=== PATIENT | female | born 1940 | race Caucasian/White ===

== ENCOUNTER 2016-06-05 17:52 | Inpatient (IN) | payer MEDICARE ==
[~2016-06-05] VITALS: Ht 157.5 cm; Wt 36.7 kg
[~2016-06-05 17:52] MED LIST: AMLO5TAB96 PO; DONNTAB12 PO; LORT5TAB PO; MEVA40TA6 PO; NAPR-697 PO; OMEP20CA5 PO; SUCR1TAB6 PO; ZYRT10TA12 PO
[2016-06-05 18:51] VITALS: BP 123/71; PULSE 104; RESP 22
[2016-06-05 20:30] VITALS: O2SAT 94
[2016-06-05 20:37] VITALS: BP 122/70; PULSE 140; RESP 40; O2SAT 96
[2016-06-05] MEDS ORDERED: RESP: ALBUTEROL 2.5 MG/IPRATROPIUM 0.5 MG NEB (SCH) NEB ONE (20:45)
[2016-06-05] MEDS ORDERED: SODIUM CHLORIDE 0.9% FLUSH 5 ML FLUSH IVF PRN (20:45)
--- NOTE | 2016-06-05 20:48 | PD ---
HPI Chief Complaint: Cold / Flu Symptoms Time Seen by Provider: 20:45 Travel History International Travel<30 days: No Contact w/Intl Traveler<30days: No Traveled to known affect area: No History of Present Illness HPI 76-year-old female presents to the emergency department by EMS transport from home for complaint of progressively worsening shortness of breath over the past 3 weeks. Patient has been seen by her primary care physician for upper respiratory infection. Patient states this episode is quite severe but not worst ever. Patient denies any yellow-green phlegm production resting brown sputum production or hemoptysis. Patient denies fever or chills. Patient denies chest pain. Patient has not noticed any swelling of the lower extremities or orthopnea or PND. Patient states that today her shortness of breath became markedly worse. Patient hasn't been seen here for respiratory- related issues. Patient does report she has very bad COPD. Patient denies home oxygen use. Pain is 0/10 in intensity. Patient denies chest pain referred neck jaw back shoulder arm or abdominal pain. PFSH Past Medical History Narrative Medical Breast cancer right mastectomy COPD hepatitis hypertension right mastectomy thoracotomy partial lobectomy hysterectomy splenectomy positive tobacco use positive alcohol use nursing notes reviewed Cancer: Yes (BREAST) Diabetes: No Diminished Hearing: No Glaucoma: No Hepatitis: Yes Hiatal Hernia: No Hypertension: Yes Musculoskeletal: Yes (; OSTEOPOROSIS; SCOLIOSIS.) Respiratory: Yes (COPD/LEFT LOBECTOMY) Immunizations Current: No Thyroid Disease: No Past Surgical History Abdominal Surgery: Yes (APPY, SPLEENECTOMY) Appendectomy: Yes Gynecologic Surgery: Yes (HYSTERECTOMY) Hysterectomy: Yes Oral Surgery: Yes (TONSILLECTOMY) Pacemaker: No Thoracic Surgery: Yes (LUMPECTOMY RT BREAST; MASTECTOMY RT BREAST) Tonsillectomy: Yes Other Surgery: Yes Social History Alcohol Use: Yes (3 BEER DAILY) Tobacco Use: Yes (1/2 PK/DAY) Substance Use: No Allergies-Medications (Allergen,Severity, Reaction): Coded Allergies: Morphine (Verified Allergy, Severe, THRASHING, 06/05/16) Lisinopril (Verified Allergy, Intermediate, VOMITING, 06/05/16) Reported Meds & Prescriptions Reported Meds & Active Scripts Active Reported Fentanyl Patch 72 HR (Fentanyl) 50 Mcg/Hr Patch 50 Mcg T-DERMAL Q72H Remove old patch when new one placed. Omeprazole 20 Mg Tab 20 Mg PO DAILY Lovastatin 40 Mg Tab 40 Mg PO DAILY Anoro Ellipta Inh (Umeclidinium/Vilanterol) 62.5-25 Mcg/Act Aero 1 Puff INH DAILY Zyrtec Allergy (Cetirizine HCl) 10 Mg Cap 10 Mg PO DAILY Lisinopril 10 Mg Tab 10 Mg PO DAILY Review of Systems Except as stated in HPI: all other systems reviewed are Neg General / Constitutional: No: Fever HENT: No: Congestion Cardiovascular: Positive: Tachycardia, No: Chest Pain or Discomfort Respiratory: Positive: Cough, Shortness of Breath, Wheezing, No: Pleuritic Pain Gastrointestinal: No: Nausea, Vomiting Genitourinary: No: Hematuria, Flank Pain Musculoskeletal: No: Arthralgias, Edema Skin: No Rash Neurologic: No: Weakness, Dizziness Psychiatric: Positive: Anxiety Hematologic/Lymphatic: No: Lymph Node Enlargement Physical Exam Narrative GENERAL: Thin ill appearing female in moderate to severe respiratory distress with tachypnea; O2 saturation on 2 L/m nasal cannula 97% SKIN: Warm and dry. HEAD: Atraumatic. Normocephalic. EYES: Pupils equal and round. No scleral icterus. No injection or drainage. ENT: No nasal bleeding or discharge. Mucous membranes pink and moist. NECK: Trachea midline. No JVD. CARDIOVASCULAR: Increased Regular rate and rhythm. RESPIRATORY: No accessory muscle use. Diminished breath sounds with expiratory wheeze and right greater than left basilar rales auscultation. Breath sounds equal bilaterally. GASTROINTESTINAL: Abdomen soft, non-tender, nondistended. Hepatic and splenic margins not palpable. MUSCULOSKELETAL: Extremities without clubbing, cyanosis, or edema. No obvious deformities. NEUROLOGICAL: Awake and alert. No obvious cranial nerve deficits. Motor grossly within normal limits. Five out of 5 muscle strength in the arms and legs. Normal speech. PSYCHIATRIC: Appropriate mood and affect; insight and judgment normal. Data Data Last Documented VS Vital Signs Date Time Temp Pulse Resp B/P Pulse Ox O2 Delivery O2 Flow Rate FiO2 06/06/16 01:00 108/64 06/05/16 23:51 103 22 96 Nasal Cannula 2 Orders Complete Blood Count With Diff (06/05/16 20:45) Comprehensive Metabolic Panel (06/05/16 20:45) B-Type Natriuretic Peptide (06/05/16 20:45) Act Partial Throm Time (Ptt) (06/05/16 20:45) Prothrombin Time / Inr (Pt) (06/05/16 20:45) Magnesium (Mg) (06/05/16 20:45) Ckmb (Isoenzyme) Profile (06/05/16 20:45) Troponin I (06/05/16 20:45) Arterial Blood Gas (Abg) (06/05/16 20:45) Blood Culture (06/05/16 20:45) Iv Access Insert/Monitor (06/05/16 20:45) Electrocardiogram (06/05/16 20:45) Ecg Monitoring (06/05/16 20:45) Oximetry (06/05/16 20:45) Oxygen Administration (06/05/16 20:45) Chest, Single Ap (06/05/16 20:45) Sodium Chloride 0.9% Flush (Ns Flush) (06/05/16 20:45) Albuterol-Ipratropium Neb (Duoneb Neb) (06/05/16 20:45) Lactic Acid (06/05/16 20:48) Resp Bipap / Cpap Non Invas Vt (06/05/16 ) Blood Glucose (06/05/16 21:20) CKMB (06/05/16 21:40) CKMB% (06/05/16 21:40) Lactic Acid (06/05/16 23:26) Piperacil-Tazo 3.375 Gm Premix (Zosyn 3. (06/05/16 23:30) Furosemide Inj (Lasix Inj) (06/05/16 23:30) Azithromycin Inj (Zithromax Inj) (06/05/16 23:30) D-Dimer (06/06/16 00:05) Influenzae A/B Antigen (06/06/16 00:09) Ct Pulmonary Angiogram (06/06/16 ) Iodixanol 320 Inj (Rad Ct) (Visipaque 32 (06/06/16 01:34) Admit Order (Ed Use Only) (06/06/16 ) ^ Saline Lock (06/06/16 02:22) Resp Oxygen Xavier C Titrat 1-4 L (06/06/16 ) ^ Notify Dr: Other (06/06/16 02:22) Sodium Chloride 0.9% Flush (Ns Flush) (06/06/16 09:00) Sodium Chloride 0.9% Flush (Ns Flush) (06/06/16 02:30) ^ For Further Orders (06/06/16 02:22) Labs Laboratory Tests Test 06/05/16 06/05/16 06/05/16 21:05 21:40 23:43 Blood Gas Puncture Site LT RADIAL Blood Gas Patient Temperature 98.6 Blood Gas HCO3 11 mmol/L Blood Gas Base Excess -13.8 mmol/L Blood Gas Oxygen Saturation 93 % Arterial Blood pH 7.34 Arterial Blood Partial 21 mmHg Pressure CO2 Arterial Blood Partial 108 mmHG Pressure O2 Arterial Blood Oxygen Content 16.2 Vol % Arterial Blood 1.9 % Carboxyhemoglobin Arterial Blood Methemoglobin 2.0 % Blood Gas Hemoglobin 12.3 G/DL Oxygen Delivery Device NASAL CANNULA Blood Gas Liter Flow 3 L/M White Blood Count 9.3 TH/MM3 Red Blood Count 3.26 MIL/MM3 Hemoglobin 11.9 GM/DL Hematocrit 37.3 % Mean Corpuscular Volume 114.2 FL Mean Corpuscular Hemoglobin 36.6 PG Mean Corpuscular Hemoglobin 32.1 % Concent Red Cell Distribution Width 15.9 % Platelet Count 215 TH/MM3 Mean Platelet Volume 8.9 FL Neutrophils (%) (Auto) 93.4 % Lymphocytes (%) (Auto) 5.3 % Monocytes (%) (Auto) 1.0 % Eosinophils (%) (Auto) 0.1 % Basophils (%) (Auto) 0.2 % Neutrophils # (Auto) 8.6 TH/MM3 Lymphocytes # (Auto) 0.5 TH/MM3 Monocytes # (Auto) 0.1 TH/MM3 Eosinophils # (Auto) 0.0 TH/MM3 Basophils # (Auto) 0.0 TH/MM3 CBC Comment DIFF FINAL Differential Comment Prothrombin Time 11.9 SEC Prothromb Time International 1.1 RATIO Ratio Activated Partial 24.8 SEC Thromboplast Time Sodium Level 139 MEQ/L Potassium Level 3.9 MEQ/L Chloride Level 108 MEQ/L Carbon Dioxide Level 16.1 MEQ/L Anion Gap 15 MEQ/L Blood Urea Nitrogen 14 MG/DL Creatinine 1.32 MG/DL Estimat Glomerular Filtration 39 ML/MIN Rate Random Glucose 139 MG/DL Lactic Acid Level 5.4 mmol/L 3.8 mmol/L Calcium Level 8.3 MG/DL Magnesium Level 1.5 MG/DL Total Bilirubin 0.6 MG/DL Aspartate Amino Transf 56 U/L (AST/SGOT) Alanine Aminotransferase 56 U/L (ALT/SGPT) Alkaline Phosphatase 86 U/L Total Creatine Kinase 250 U/L Creatine Kinase MB 8.3 NG/ML Creatine Kinase MB % 3.3 % Troponin I 0.16 NG/ML B-Type Natriuretic Peptide 4483 PG/ML Total Protein 6.4 GM/DL Albumin 3.7 GM/DL D-Dimer Quantitative (PE/DVT) 5.29 MG/L [facility] Medical Decision Making Medical Screen Exam Complete: Yes Emergency Medical Condition: Yes Medical Record Reviewed: Yes Interpretation(s) EKG: Sinus tachycardia rate 121 left axis deviation with age-indeterminate QS anteroseptally no acute ST elevation Last Impressions CT Angiography 06/06/16 0000 Signed Impressions: Service Date/Time: June 01:30 - CONCLUSION: 1. Negative for pulmonary embolus. 2. Fairly extensive peribronchial thickening especially at the lung bases most characteristic of a bronchitis. 3. Small bilateral pleural effusions. No pericardial effusion. 4. Moderate to severe coronary artery calcifications. 5. Moderate centrilobular emphysema. Josh Almonte MD Chest X-Ray 06/05/[id number] Signed Impressions: Service Date/Time: Sunday, June 05, 2016 21:31 - CONCLUSION: Advanced chronic obstructive pulmonary disease Mild generalized interstitial vascular prominence which may represent early congestion. Minimal bilateral effusions. Gilles Jmi MD CBC & BMP Diagram 06/05/16 21:40 Lactic acid elevated at 5.4; repeat lactic acid 3.8 Acute renal insufficiency with creatinine 1.32 and metabolic acidosis bicarbonate 16 CK total 250 with normal MB percent troponin I elevated at 0.16 BMP elevated at 4480 Differential Diagnosis Exacerbation COPD, pneumonia, CHF, respiratory failure, ACS Narrative Course Patient placed on quality assurance monitor chassis IV access obtained specimens collected and sent for resulting patient administered DuoNeb malikraosman patient artery received albuterol 3 doses and written the hospital as well as 125 mg of Solu-Medrol prior to arrival to the emergency department Patient with ongoing supplemental oxygen 2-3 L/m nasal cannula with good O2 saturations patient clinically improved after DuoNeb updrafts Patient identified to have markedly elevated Actiq acid; blood cultures obtained IV antibiotics administered Lasix 20 mg IV administered repeat lactic acid 3.8 elevated but not as marked as before Patient's case discussed in detail with feather trimmer; in view of ongoing tachycardia d-dimer obtained which was very elevated at 5.[address] pulmonary angiogram obtained No PE by angiogram however significant peribronchial thickening consistent with bronchitis also changes consistent with emphysema again no PE but moderate coronary calcifications by imaging study. Patient continues show improvement case again discussed with feather trimmer will see in consultation aware patient will be admitted by medicine service to ICU and will be consult as necessary; case discussed in detail with on-call [facility] physician Dr. De La O will admit patient to Dr. Lopez ICU and consult feather trimmer as needed Critical Care Narrative Aggregate critical care time was 40 minutes. Time to perform other separately billable procedures was not included in the critical care time. My time did not include minutes spent treating any other patients simultaneously or on activities that did not directly contribute to the patient's treatment. The services I provided to this patient were to treat and/or prevent clinically significant deterioration that could result in: Respiratory failure respiratory arrest I provided critical care services requiring my management, as noted below: Chart data review, documentation time, medication orders and management, vital sign assessments/reviewing monitor data, ordering and reviewing lab tests, ordering and interpreting/reviewing x-rays and diagnostic studies, care of the patient and discussion of the patient with the admitting physicians. Physician Communication Physician Communication discussed with Dr Bermeo; discussed with Dr Webster --admit to ICU to Dr Lopez Diagnosis Primary Impression: COPD exacerbation Additional Impression: CHF (congestive heart failure) Admitting Information Admitting Physician Requests: Admit Zeny Torres MD Jun 05, 2016 20:48
[2016-06-05] MEDS ORDERED: ZYRT10CA PO (20:54)
[2016-06-05] MEDS ORDERED: LOVA40TA PO (20:54)
[2016-06-05] MEDS ORDERED: LISI10TA3 PO (20:54)
[2016-06-05] MEDS ORDERED: FENT50DI T-DERMAL (20:54)
[2016-06-05] MEDS ORDERED: UMEC1AER INH (20:54)
[2016-06-05] MEDS ORDERED: OMEP20TA PO (20:54)
[2016-06-05 21:09] LABS: BLOOD GAS BASE EXCESS -13.8 mmol/L (-2-2); BLOOD GAS CARBOXYHEMOGLOBIN 1.9 % (0-4); BLOOD GAS HCO3 11 mmol/L (22-26); BLOOD GAS O2 HGB SATURATION 93 % (90-100); BLOOD GAS OXYGEN CONTENT 16.2 Vol % (12.0-20.0); BLOOD GAS PCO2 21 mmHg (38-42); BLOOD GAS PO2 108 mmHG (61-120); BLOOD GAS TOTAL HGB 12.3 G/DL (12.0-16.0); TEMP CORR TO 98.6
[2016-06-05 21:13] LABS: CRITICAL VALUE YES; DRAW SITE LT RADIAL; LITER FLOW 3 L/M; NUMBER OF ARTERIAL PUNCTURES 1; OXYGEN DEVICE NASAL CANNULA; STAT YES; ULNAR PULSE PRESENT
--- NOTE | 2016-06-05 22:23 | RADRPT ---
EXAM DATE/TIME: 06/05/2016 21:31 [facility] COMPARISON: No previous studies available for comparison. INDICATIONS : Shortness of breath. MEDICAL HISTORY : Emphysema. SURGICAL HISTORY : None. ENCOUNTER: Initial ACUITY: 3 days PAIN SCORE: 0/10 LOCATION: chest FINDINGS: The lungs are markedly hyperinflated. There is generalized interstitial vascular prominence. Minimal blunting is seen and the costophrenic angles. Heart is at the upper limits of normal in size. CONCLUSION: Advanced chronic obstructive pulmonary disease Mild generalized interstitial vascular prominence which may represent early congestion. Minimal bilateral effusions. Gilles Jim MD on June 05, 2016 at 22:21 Board Certified Radiologist. This report was verified electronically.
[2016-06-05 22:28] VITALS: BP 113/71; PULSE 99; RESP 22; O2SAT 97
[2016-06-05 22:30] LABS: AUTOMATED NEUTROPHIL # 8.6 TH/MM3 (1.8-7.7); BASOPHIL % 0.2 % (0.0-2.0); EOSINOPHIL % 0.1 % (0.0-4.0); HEMATOCRIT 37.3 % (35.0-46.0); HEMO FLAGS DIFF FINAL; LYMPH % 5.3 % (9.0-44.0); LYMPHOCYTE # 0.5 TH/MM3 (1.0-4.8); MEAN CELL VOLUME 114.2 FL (80.0-100.0); MEAN CORPUSCULAR HEMOGLOBIN 36.6 PG (27.0-34.0); MEAN CORPUSCULAR HGB CONC 32.1 % (32.0-36.0); NEUT % 93.4 % (16.0-70.0); PLATELET COUNT 215 TH/MM3 (150-450); RED BLOOD COUNT 3.26 MIL/MM3 (4.00-5.30); RED CELL DISTRIBUTION WIDTH 15.9 % (11.6-17.2); WHITE BLOOD COUNT 9.3 TH/MM3 (4.0-11.0)
[2016-06-05 22:40] LABS: APTT (PATIENT) 24.8 SEC (24.3-30.1); INTERNATIONAL NORMALIZED RATIO 1.1 RATIO; PROTHROMBIN TIME - PATIENT 11.9 SEC (9.8-11.6)
[2016-06-05 22:54] LABS: ANION GAP 15 MEQ/L (5-15); AST (GOT) 56 U/L (15-37); BICARBONATE 16.1 MEQ/L (21.0-32.0); BLOOD UREA NITROGEN 14 MG/DL (7-18); CHLORIDE 108 MEQ/L (98-107); GLOMERULAR FILTRATION RATE 39 ML/MIN (>89); MAGNESIUM 1.5 MG/DL (1.5-2.5); POTASSIUM 3.9 MEQ/L (3.5-5.1); SODIUM (NA) 139 MEQ/L (136-145)
[2016-06-05 23:00] LABS: ALKALINE PHOSPHATASE 86 U/L (45-117); ALT (GPT) 56 U/L (10-53); CREATINE KINASE 250 U/L (26-192); TOTAL BILIRUBIN ADULT 0.6 MG/DL (0.2-1.0)
[2016-06-05 23:12] LABS: CKMB 8.3 NG/ML (0.5-3.6)
[2016-06-05] MEDS ORDERED: FUROSEMIDE 20 MG/2 ML VIAL IV PUSH ONE (23:30)
[2016-06-05] MEDS ORDERED: PIPERACIL-TAZO 3.375 GM PREMIX 50 ML IV ONE (23:30)
[2016-06-05] MEDS ORDERED: AZITHROMYCIN INJ 500 MG in SODIUM CHLOR 0.9% 250 ML INJ 250 ML IV ONE (23:30)
[2016-06-05 23:51] VITALS: BP 137/86; PULSE 103; RESP 22; O2SAT 96
[2016-06-06] VITALS (12 sets, daily range): BP systolic 88–134; BP diastolic 60–83; PULSE 93–120; RESP 15–20; TEMP 97.8–98; O2SAT 92–100
[2016-06-06] MEDS ORDERED: IODIXANOL 320 MG/ML 10 ML VIAL (for Rad CT) IV ONE (01:34)
--- NOTE | 2016-06-06 01:49 | RADRPT ---
EXAM DATE/TIME: 06/06/2016 01:30 [facility] COMPARISON: No previous studies available for comparison. INDICATIONS : Cough, congestion, short of breath, and tachycardic IV CONTRAST: 50 cc Visipaque (iodixanol) IV RADIATION DOSE: 26.95 CTDIvol (mGy) MEDICAL HISTORY : Chronic obstructive pulmonary disease. Breast cancer. SURGICAL HISTORY : Hysterectomy. Tonsillectomy.Splenectomy.Appendectomy. Left lobectomy. Right mastectomy. ENCOUNTER: Initial ACUITY: 4 - 6 days PAIN SCALE: 0/10 LOCATION: Bilateral chest TECHNIQUE: Volumetric scanning of the chest was performed using a pulmonary embolism protocol MIP images were re constructed. Using automated exposure control and adjustment of the mA and/or kV according to patien t size, radiation dose was kept as low as reasonably achievable to obtain optimal diagnostic quality images. FINDINGS: No filling defects are seen in the pulmonary arteries to suggest pulmonary embolus. There is moderate underlying centrilobular emphysema. Small bilateral pleural effusions are present. There is peribronchial thickening bilaterally especially at the lung bases. No focal dense consolidat ion. No significant adenopathy. Moderate to severe coronary calcifications. Levoscoliosis. CONCLUSION: 1. Negative for pulmonary embolus. 2. Fairly extensive peribronchial thickening especially at the lung bases most characteristic of a br onchitis. 3. Small bilateral pleural effusions. No pericardial effusion. 4. Moderate to severe coronary artery calcifications. 5. Moderate centrilobular emphysema. Josh Almonte MD on June 06, 2016 at 1:42 Board Certified Radiologist. This report was verified electronically.
[2016-06-06] MEDS ORDERED: SODIUM CHLORIDE 0.9% FLUSH 5 ML FLUSH FLUSH PRN (02:30)
[2016-06-06] MEDS ORDERED: NALOXONE HCL 0.4 MG/ML AMP IV PRN (02:30)
[2016-06-06] MEDS ORDERED: RESP: ALBUTEROL 2.5 MG/IPRATROPIUM 0.5 MG NEB (SCH) NEB ONE (02:30)
[2016-06-06] MEDS ORDERED: ACETAMINOPHEN 325 MG TAB PO PRN (02:30)
[2016-06-06] MEDS ORDERED: SODIUM CHLORIDE 0.9% FLUSH 5 ML FLUSH IVF PRN (02:30)
[2016-06-06] MEDS: fentaNYL 50 MCG/HR PATCH T-DERMAL SCH (03:08)
[2016-06-06 04:34] LABS: AUTOMATED NEUTROPHIL # 6.3 TH/MM3 (1.8-7.7); BASOPHIL % 0.1 % (0.0-2.0); HEMATOCRIT 31.6 % (35.0-46.0); HEMO FLAGS DIFF FINAL; LYMPH % 9.8 % (9.0-44.0); LYMPHOCYTE # 0.7 TH/MM3 (1.0-4.8); MEAN CELL VOLUME 105.2 FL (80.0-100.0); MEAN CORPUSCULAR HGB CONC 34.2 % (32.0-36.0); MONO % 1.4 % (0.0-8.0); NEUT % 88.7 % (16.0-70.0); PLATELET COUNT 222 TH/MM3 (150-450); RED BLOOD COUNT 3.01 MIL/MM3 (4.00-5.30); RED CELL DISTRIBUTION WIDTH 14.3 % (11.6-17.2); WHITE BLOOD COUNT 7.2 TH/MM3 (4.0-11.0)
[2016-06-06 05:04] LABS: ALKALINE PHOSPHATASE 72 U/L (45-117); ALT (GPT) 51 U/L (10-53); ANION GAP 15 MEQ/L (5-15); AST (GOT) 45 U/L (15-37); BICARBONATE 18.8 MEQ/L (21.0-32.0); BLOOD UREA NITROGEN 17 MG/DL (7-18); CHLORIDE 105 MEQ/L (98-107); GLOMERULAR FILTRATION RATE 38 ML/MIN (>89); POTASSIUM 4.2 MEQ/L (3.5-5.1); SODIUM (NA) 139 MEQ/L (136-145); TOTAL BILIRUBIN ADULT 0.5 MG/DL (0.2-1.0)
[2016-06-06] MEDS ORDERED: FUROSEMIDE 20 MG/2 ML VIAL IV PUSH ONE (06:00)
[2016-06-06] MEDS: PIPERACIL-TAZO 3.375 GM PREMIX 50 ML IV SCH ×3 (07:55→23:35)
[2016-06-06] MEDS: RESP: ALBUTEROL 2.5 MG/IPRATROPIUM 0.5 MG NEB (SCH) NEB ×3 (08:04→20:32)
[2016-06-06] MEDS: UMECLIDINIUM 62.5 MCG/VILANTEROL 25 MCG INHALER INH SCH (08:29)
[2016-06-06] MEDS: CETIRIZINE HCL 10 MG TAB PO SCH (08:29)
[2016-06-06] MEDS: PANTOPRAZOLE SOD 20 MG DELAYED RELEASE TAB PO SCH (08:30)
[2016-06-06] MEDS: SODIUM CHLORIDE 0.9% FLUSH 5 ML FLUSH FLUSH SCH ×2 (08:30→20:21)
[2016-06-06] MEDS: PRAVASTATIN SOD 40 MG TAB PO SCH (08:30)
[2016-06-06] MEDS ORDERED: LISINOPRIL 10 MG TAB PO SCH (09:00)
[2016-06-06] MEDS ORDERED: SODIUM CHLORIDE 0.9% FLUSH 5 ML FLUSH IVF SCH (09:00)
--- NOTE | 2016-06-06 09:04 | HHI.HP ---
HPI Service [facility] Hospitalists Primary Care Physician Colleen Morales MD Admission Diagnosis exacerbation COPD; CHF; elevated troponin I Chief Complaint: SOB Travel History International Travel<30 Days: No Contact w/Intl Traveler <30 Da: No Traveled to Known Affected Are: No History of Present Illness Mrs. Casas is a pleasant 76 y/o WF with COPD, HTN, hyperlipidemia, tobacco use and regular alcohol use. She presented to the ED at [facility] via EMS transport from home on 06/05/16 for progressively worsening shortness of breath over the past 3 weeks which acutely worsened yesterday. Patient has been seen by her primary care physician for upper respiratory infection and COPD exacerbation around 3 months ago and states that she was on antibiotics and steroids. She states that the steroids helped her significantly but then she developed thrush and stopped taking the steroids and antibiotics. Patient states that her symptoms returned after stopping medications and have been progressively worsening. She denies any fevers but states that she has felt chilled. Pt has had a productive cough with yellow sputum. Patient denies any chest pain, LE edema, orthopnea or PND. Patient denies home oxygen use. Labs at admission noted WNC count to be WNL. Her Lactic acid was elevated at 5.4. She was given Zosyn and Azithromycin IV in the ER and these were continued upon admission. She was also noted to have elevated BNP of 4483 but CXR noted advanced chronic obstructive pulmonary disease and some mild generalized interstitial vascular prominence which may represent early congestion and minimal bilateral effusions. Pt was given Lasix 20mg IV in the ER. Pts D-dimer was elevated and a CTA was performed which was negative for pulmonary embolus, fairly extensive peribronchial thickening especially at the lung bases most characteristic of a bronchitis, small bilateral pleural effusions, no pericardial effusion, moderate to severe coronary artery calcifications, and moderate centrilobular emphysema. Review of Systems Constitutional: COMPLAINS OF: Chills, DENIES: Fever Eyes: DENIES: Vision loss Ears, nose, mouth, throat: DENIES: Hearing loss Respiratory: COMPLAINS OF: Cough, Wheezing, Sputum production, Shortness of breath Cardiovascular: DENIES: Chest pain, Palpitations, Dyspnea on Exertion, Lower Extremity Edema Gastrointestinal: DENIES: Abdominal pain, Diarrhea, Nausea, Vomiting Genitourinary: DENIES: Urinary frequency Musculoskeletal: DENIES: Joint pain Integumentary: DENIES: Rash Neurologic: DENIES: Headache Psychiatric: DENIES: Confusion, Depression Past Family Social History Past Medical History COPD/chronic bronchitis HTN Hyperlipidemia Depression/Anxiety Chronic low back pain Carotid artery stenosis Nicotine dependence Osteoarthritis Osteopenia PVD Hx of breast cancer s/p lumpectomy Hx of uterine cancer s/p JOSH Past Surgical History Appendectomy Right breast lumpectomy in 1996 Splenectomy in 1963 JOSH with BSO for uterine cancer in 1972 Excision of ganglion cyst to left wrist in 1979 Reported Medications -Fentanyl Patch 72 HR 50 Mcg T-DERMAL Q72H -Lovastatin 40 Mg PO DAILY -Anoro Ellipta Inh 62.5-25 Mcg/Act Aero 1 Puff INH DAILY -Zyrtec Allergy 10 Mg PO DAILY -Megace 40Mg PO BID -Omeprazole 20 Mg PO DAILY ?Lisinopril 10 Mg Tab 10 Mg PO DAILY ?[id number] PO DAILY Allergies: Coded Allergies: Morphine (Verified Allergy, Severe, THRASHING, 06/05/16) Lisinopril (Verified Allergy, Intermediate, VOMITING, 06/05/16) Family History Mother with hx of breast cancer and gastric cancer, at age 64 Father with hx of prostate cancer, at age 84 Social History (+)Alcohol use, drinks 3-4 beers per night (+)Tobacco use Denies any hx of illicit drug use Pt is currently Physical Exam Vital Signs Vital Signs Date Time Temp Pulse Resp B/P Pulse Ox O2 Delivery O2 Flow Rate FiO2 06/06/16 07:56 97.8 104 20 122/77 98 Nasal Cannula 2 06/06/16 06:01 17 06/06/16 05:00 100 15 115/83 97 Nasal Cannula 2 06/06/16 03:00 98 19 109/77 97 Nasal Cannula 2 06/06/16 01:00 108/64 06/05/16 23:51 103 22 137/86 96 Nasal Cannula 2 06/05/16 22:28 99 22 113/71 97 Room Air 06/05/16 20:37 140 40 122/70 96 Nasal Cannula 3 06/05/16 20:37 40 96 Nasal Cannula 3 06/05/16 20:30 94 Room Air 06/05/16 20:30 96 Nasal Cannula 3 06/05/16 18:51 104 22 123/71 Physical Exam GENERAL: Thin elderly patient, in no apparent distress. HEENT: Atraumatic. Normocephalic. No temporal or scalp tenderness. No scleral icterus. Airway patent. NECK: Trachea midline, supple, nontender. CARDIO: Regular. RESP: Decreased air movement bilaterally, rhonchi in the bases. ABD: +BS, soft, non-tender, nondistended. EXT: Extremities without clubbing, cyanosis, or edema. NEURO: Awake and alert. Motor and sensory grossly within normal limits. Normal speech. Laboratory Laboratory Tests Test 06/05/16 06/05/16 06/05/16 06/06/16 21:05 21:40 23:43 04:07 Blood Gas Puncture Site LT RADIAL Blood Gas Patient Temperature 98.6 Blood Gas HCO3 11 Blood Gas Base Excess -13.8 Blood Gas Oxygen Saturation 93 Arterial Blood pH 7.34 Arterial Blood Partial 21 Pressure CO2 Arterial Blood Partial 108 Pressure O2 Arterial Blood Oxygen Content 16.2 Arterial Blood 1.9 Carboxyhemoglobin Arterial Blood Methemoglobin 2.0 Blood Gas Hemoglobin 12.3 Oxygen Delivery Device NASAL CANNULA Blood Gas Liter Flow 3 White Blood Count 9.3 7.2 Red Blood Count 3.26 3.01 Hemoglobin 11.9 10.8 Hematocrit 37.3 31.6 Mean Corpuscular Volume 114.2 105.2 Mean Corpuscular Hemoglobin 36.6 36.0 Mean Corpuscular Hemoglobin 32.1 34.2 Concent Red Cell Distribution Width 15.9 14.3 Platelet Count 215 222 Mean Platelet Volume 8.9 9.3 Neutrophils (%) (Auto) 93.4 88.7 Lymphocytes (%) (Auto) 5.3 9.8 Monocytes (%) (Auto) 1.0 1.4 Eosinophils (%) (Auto) 0.1 0.0 Basophils (%) (Auto) 0.2 0.1 Neutrophils # (Auto) 8.6 6.3 Lymphocytes # (Auto) 0.5 0.7 Monocytes # (Auto) 0.1 0.1 Eosinophils # (Auto) 0.0 0.0 Basophils # (Auto) 0.0 0.0 CBC Comment DIFF FINAL DIFF FINAL Differential Comment Prothrombin Time 11.9 Prothromb Time International 1.1 Ratio Activated Partial 24.8 Thromboplast Time Sodium Level 139 139 Potassium Level 3.9 4.2 Chloride Level 108 105 Carbon Dioxide Level 16.1 18.8 Anion Gap 15 15 Blood Urea Nitrogen 14 17 Creatinine 1.32 1.37 Estimat Glomerular Filtration 39 38 Rate Random Glucose 139 210 Lactic Acid Level 5.4 3.8 Calcium Level 8.3 8.2 Magnesium Level 1.5 Total Bilirubin 0.6 0.5 Aspartate Amino Transf 56 45 (AST/SGOT) Alanine Aminotransferase 56 51 (ALT/SGPT) Alkaline Phosphatase 86 72 Total Creatine Kinase 250 Creatine Kinase MB 8.3 Creatine Kinase MB % 3.3 Troponin I 0.16 0.14 B-Type Natriuretic Peptide 4483 4805 Total Protein 6.4 6.0 Albumin 3.7 3.3 D-Dimer Quantitative (PE/DVT) 5.29 Date/Time Procedure Status Source Growth 06/06/16 00:23 Influenza Types A,B Antigen (NELDA) - Final Complete Nasal Washing NEGATIVE FOR FLU A AND B ANTIGEN.... 06/05/16 21:50 Aerobic Blood Culture Received Blood Peripheral Pending 06/05/16 21:50 Anaerobic Blood Culture Received Blood Peripheral Pending Result Diagram: 06/06/16 0407 06/06/16 [address] Angiography 06/06/16 0000 Signed Impressions: Service Date/Time: June 01:30 - CONCLUSION: 1. Negative for pulmonary embolus. 2. Fairly extensive peribronchial thickening especially at the lung bases most characteristic of a bronchitis. 3. Small bilateral pleural effusions. No pericardial effusion. 4. Moderate to severe coronary artery calcifications. 5. Moderate centrilobular emphysema. Josh Almonte MD Chest X-Ray 06/05/162044 Signed Impressions: Service Date/Time: Sunday, June 05, 2016 21:31 - CONCLUSION: Advanced chronic obstructive pulmonary disease Mild generalized interstitial vascular prominence which may represent early congestion. Minimal bilateral effusions. Gilles Jim MD Septic Shock Reassessment Heart: Regular rate and rhythm Lungs: Course Skin: Warm Peripheral Pulses: Bounding Right Radial Bounding Left Radial Bounding Right Popliteal Bounding Left Popliteal Bounding Right Dorsalis Pedis Bounding Left Dorsalis Pedis Bounding Right Posterior Tibial Bounding Left Posterior Tibial Capillary Refill: <2 seconds Assessment and Plan Problem List: (1) COPD exacerbation Status: Acute Plan: - Pt admitted with worsening SOB, productive cough, and congestion that has progressively worsened over the last 3 weeks. - Labs at admission noted WNC count to be WNL. Her Lactic acid was elevated at 5.4. - She was given Zosyn and Azithromycin IV in the ER and these were continued upon admission. - Pt had an elevated BNP of 4483 at admission. - CXR (06/05) -->Advanced chronic obstructive pulmonary disease Mild generalized interstitial vascular prominence which may represent early congestion. Minimal bilateral effusions. - Pt was given Lasix 20mg IV x 2 in the ER. - Pts D-dimer was elevated. CTA lungs (06/05) --> Negative for pulmonary embolus. Fairly extensive peribronchial thickening especially at the lung bases most characteristic of a bronchitis. Small bilateral pleural effusions. No pericardial effusion. Moderate to severe coronary artery calcifications. Moderate centrilobular emphysema. - Start Solu-Medrol 125mg x one dose then continued 60mg Q6H - Cont. Antibiotics - Duonebs Q6H WA and Q2H PRN - Supplemental O2 as needed - IS - Acapella - DVT prophylaxis (2) Bronchitis Status: Acute Plan: - See above. (3) HTN (hypertension) Status: Chronic Plan: - Home meds resumed - Monitor (4) Elevated troponin Status: Acute Plan: - Flat pattern, 0.12-->0.14-->0.12 - No complaints of chest pain (5) Hyperlipidemia Status: Chronic (6) Tobacco use Status: Chronic Plan: - Counselled on tobacco cessation - Nicotine patch (7) Alcohol use Status: Chronic Plan: - Alcohol withdrawal precautions - Ativan PRN (8) Chronic back pain Status: Chronic Plan: - Cont. home meds Assessment and Plan Patient examined. Assessment and plan formulated with Saritha Marie PA-C. I agree with the above. Physician Certification 2 Midnight Certification Type: Admission for Inpatient Services Order for Inpatient Services The services are ordered in accordance with Medicare regulations or non- Medicare payer requirements, as applicable. In the case of services not specified as inpatient-only, they are appropriately provided as inpatient services in accordance with the 2-midnight benchmark. Estimated LOS (days): 3 3 days is the estimated time the patient will need to remain in the hospital, assuming treatment plan goals are met and no additional complications. Post-Hospital Plan: Not yet determined Saritha Marie Jun 06, 2016 09:04 Richard Lopez DO Jun 09, 2016 16:23
[2016-06-06] MEDS ORDERED: PANTOPRAZOLE SODIUM 40 MG VIAL IV PUSH SCH (09:45)
[2016-06-06] MEDS ORDERED: LORazepam 2 MG/ML VIAL IV PUSH PRN (10:15)
[2016-06-06] MEDS ORDERED: RESP: ALBUTEROL 2.5 MG/IPRATROPIUM 0.5 MG NEB (PRN) NEB (10:15)
[2016-06-06] MEDS ORDERED: methylPREDNISolone SOD SUCC 125 MG/2 ML VIAL IV PUSH ONE (10:15)
[2016-06-06] MEDS: MEGESTROL ACETATE 40 MG TAB PO SCH ×2 (10:21→20:23)
[2016-06-06] MEDS ORDERED: NICOTINE 14 MG/24 HR PATCH TD ONE (11:00)
[2016-06-06] MEDS: methylPREDNISolone SOD SUCC 125 MG/2 ML VIAL IV PUSH SCH ×2 (15:58→23:34)
--- NOTE | 2016-06-06 19:01 | EC ---
Study Study Date:06/06/2016 STUDY CONCLUSIONS SUMMARY - Left ventricle: The cavity size was normal. Wall thickness was normal. Systolic function was moderately reduced. The estimated ejection fraction was in the range of 35% to 40%. Severe hypokinesis of the anteroseptal myocardium. - Mitral valve: Mild to moderate regurgitation. - Tricuspid valve: Moderate regurgitation. - Pulmonary arteries: PA peak pressure: 77mm Hg (S). If LV function is below 40, please consider prescribing an ACEI or ARB or document rationale for non-use. PROCEDURE DATA STUDY STATUS: Elective. Procedure: Transthoracic echocardiography. Image quality was good. Scanning was performed from the parasternal, apical, and subcostal acoustic windows. Study completion: The patient tolerated the procedure well. Transthoracic echocardiography. M-mode, complete 2D, complete spectral Doppler, and color Doppler. Patient status: Inpatient. CARDIAC ANATOMY LEFT VENTRICLE: The cavity size was normal. Wall thickness was normal. Systolic function was moderately reduced. The estimated ejection fraction was in the range of 35% to 40%. Regional wall motion abnormalities: Severe hypokinesis of the anteroseptal myocardium. AORTIC VALVE: Trileaflet; normal thickness leaflets. Doppler: Transvalvular velocity was within the normal range. There was no stenosis. No regurgitation. AORTA: Aortic root: The aortic root was normal in size. MITRAL VALVE: Structurally normal valve. Doppler: Transvalvular velocity was within the normal range. There was no evidence for stenosis. Mild to moderate regurgitation. Valve area by pressure half-time: 3.61cm^2. Mean gradient: 2mm Hg (D). Peak gradient: 5mm Hg (D). LEFT ATRIUM: The atrium was normal in size. RIGHT VENTRICLE: The cavity size was normal. Wall thickness was normal. PULMONIC VALVE: Doppler: Transvalvular velocity was within the normal range. There was no evidence for stenosis. No regurgitation. TRICUSPID VALVE: Structurally normal valve. Doppler: Transvalvular velocity was within the normal range. Moderate regurgitation. PULMONARY ARTERY: The main pulmonary artery was normal-sized. Systolic pressure was within the normal range. RIGHT ATRIUM: The atrium was normal in size. PERICARDIUM: There was no pericardial effusion. SYSTEMIC VEINS: Inferior vena cava: The vessel was normal in size. BASIC MEASUREMENTS ADULT Normal Left ventricle LV internal dimension, ED, chordal level, 44.3 mm 43-52 PLAX LV internal dimension, ES, chordal level, 36.6 mm 23-38 PLAX Fractional shortening, chordal level, PLAX *17 % >29 LV posterior wall thickness, ED 6.35 mm IVS/LVPW ratio, ED *1.69 <1.3 Ventricular septum Septal thickness, ED 10.7 mm Aortic valve Leaflet separation 19 mm 15-26 Left atrium Anterior-posterior dimension 30 mm Right ventricle RV internal dimension, ED, PLAX 25.3 mm 19-38 BASIC MEASUREMENTS ADULT Normal Aortic valve Leaflet separation 19 mm 15-26 Aorta Root diameter, ED 29 mm 20-37 DOPPLER MEASUREMENTS ADULT Normal Main pulmonary artery Pressure, S *77 mm Hg =30 Aortic valve VTI, S 31.7 cm Mitral valve Peak E-wave velocity 93.2 cm/s Peak A-wave velocity 70.3 cm/s Mean velocity, D 60.2 cm/s Pressure half-time 61 ms Mean gradient, D 2 mm Hg Peak gradient, D 5 mm Hg Peak E/A ratio 1.3 Valve area, pressure half-time 3.61 cm^2 Maximal regurgitant velocity 369 cm/s Tricuspid valve Regurgitant peak velocity 271 cm/s Peak RV-RA gradient, S 29 mm Hg Maximal regurgitant velocity 271 cm/s Systemic veins Estimated CVP 20 mm Hg Right ventricle RV pressure, S *77 mm Hg <30 LEGEND: Mean values are shown as u=mean value. Asterisk (*) bryant values outside specified normal range. Prepared and signed by Alberto Gilliam [id number]
[2016-06-06] MEDS ORDERED: REMOVE OLD NICODERM (NICOTINE) PATCH TD ONE (21:00)
[2016-06-06] MEDS: AZITHROMYCIN INJ 500 MG in SODIUM CHLOR 0.9% 250 ML INJ 250 ML IV SCH (23:34)
--- NOTE | 2016-06-06 23:50 | EKG ---
Date Performed: 06/05/2016 Time Performed: 21:16:19 PTAGE: 76 years EKG: SINUS TACHYCARDIA MARKED LEFT AXIS DEVIATION ANTEROSEPTAL MYOCARDIAL INFARCTION ABNORMAL EC G NO PREVIOUS TRACING DOCTOR: Magan Montiel Interpretating Date/Time 06/06/2016 23:48:36
[2016-06-07] VITALS (15 sets, daily range): BP systolic 81–118; BP diastolic 54–83; PULSE 84–166; RESP 13–25; TEMP 97.5–98; O2SAT 97–99
[2016-06-07] MEDS: methylPREDNISolone SOD SUCC 125 MG/2 ML VIAL IV PUSH SCH ×4 (04:22→21:30)
[2016-06-07] MEDS: RESP: ALBUTEROL 2.5 MG/IPRATROPIUM 0.5 MG NEB (SCH) NEB ×3 (08:24→19:39)
[2016-06-07] MEDS: SODIUM CHLORIDE 0.9% FLUSH 5 ML FLUSH FLUSH SCH ×2 (09:08→21:00)
[2016-06-07] MEDS: PIPERACIL-TAZO 3.375 GM PREMIX 50 ML IV SCH ×2 (09:08→15:42)
[2016-06-07] MEDS: NICOTINE 14 MG/24 HR PATCH TD SCH (09:10)
[2016-06-07] MEDS: CETIRIZINE HCL 10 MG TAB PO SCH (09:11)
[2016-06-07] MEDS: PANTOPRAZOLE SOD 20 MG DELAYED RELEASE TAB PO SCH (09:11)
[2016-06-07] MEDS: MEGESTROL ACETATE 40 MG TAB PO SCH ×2 (09:11→21:29)
[2016-06-07] MEDS: PRAVASTATIN SOD 40 MG TAB PO SCH (09:11)
[2016-06-07] MEDS: UMECLIDINIUM 62.5 MCG/VILANTEROL 25 MCG INHALER INH SCH (09:12)
[2016-06-07] MEDS ORDERED: DIGOXIN 0.5 MG/2 ML VIAL IV PUSH ONE ×2 (15:30→23:00)
--- NOTE | 2016-06-07 16:41 | HHI.PR ---
Subjective Remarks Pt developed A. fib RVR today with HR into the 160-180's, pt is asymptomatic Denies any chest pain or SOB Pt had one loose stool today She complains of some nausea. Objective Vitals Vital Signs Date Time Temp Pulse Resp B/P Pulse Ox O2 Delivery O2 Flow Rate FiO2 06/07/16 12:00 100 06/07/16 12:00 97.7 100 25 81/55 97 06/07/16 10:00 88 06/07/16 08:27 97 Nasal Cannula 2.00 06/07/16 08:00 97.7 88 21 118/83 97 06/07/16 08:00 92 06/07/16 06:00 92 06/07/16 04:00 87 06/07/16 04:00 98.0 87 13 101/65 98 06/07/16 02:00 91 06/07/16 00:00 102 06/07/16 00:00 97.8 102 20 103/58 99 06/06/16 22:00 100 06/06/16 20:35 98 Nasal Cannula 2.00 06/06/16 20:00 97.8 93 18 88/60 100 06/06/16 20:00 95 06/06/16 18:00 104 06/06/16 06/06/16 06/07/16 15:00 23:00 07:00 Intake Total 280 ml 631 ml 604 ml Output Total 600 ml 100 ml Balance -320 ml 631 ml 504 ml Intake Oral 280 ml 500 ml 300 ml IV Total 131 ml 304 ml Output Urine Total 600 ml 100 ml # Voids 1 1 1 # Bowel Movements 0 Result Diagram: 06/06/16 0407 06/06/16 0407 Other Results Laboratory Tests Test 06/05/16 06/05/16 06/05/16 06/06/16 21:05 21:40 23:43 04:07 Blood Gas Puncture Site LT RADIAL Blood Gas Patient Temperature 98.6 Blood Gas HCO3 11 mmol/L Blood Gas Base Excess -13.8 mmol/L Blood Gas Oxygen Saturation 93 % Arterial Blood pH 7.34 Arterial Blood Partial 21 mmHg Pressure CO2 Arterial Blood Partial 108 mmHG Pressure O2 Arterial Blood Oxygen Content 16.2 Vol % Arterial Blood 1.9 % Carboxyhemoglobin Arterial Blood Methemoglobin 2.0 % Blood Gas Hemoglobin 12.3 G/DL Oxygen Delivery Device NASAL CANNULA Blood Gas Liter Flow 3 L/M White Blood Count 9.3 TH/MM3 7.2 TH/MM3 Red Blood Count 3.26 MIL/MM3 3.01 MIL/MM3 Hemoglobin 11.9 GM/DL 10.8 GM/DL Hematocrit 37.3 % 31.6 % Mean Corpuscular Volume 114.2 FL 105.2 FL Mean Corpuscular Hemoglobin 36.6 PG 36.0 PG Mean Corpuscular Hemoglobin 32.1 % 34.2 % Concent Red Cell Distribution Width 15.9 % 14.3 % Platelet Count 215 TH/MM3 222 TH/MM3 Mean Platelet Volume 8.9 FL 9.3 FL Neutrophils (%) (Auto) 93.4 % 88.7 % Lymphocytes (%) (Auto) 5.3 % 9.8 % Monocytes (%) (Auto) 1.0 % 1.4 % Eosinophils (%) (Auto) 0.1 % 0.0 % Basophils (%) (Auto) 0.2 % 0.1 % Neutrophils # (Auto) 8.6 TH/MM3 6.3 TH/MM3 Lymphocytes # (Auto) 0.5 TH/MM3 0.7 TH/MM3 Monocytes # (Auto) 0.1 TH/MM3 0.1 TH/MM3 Eosinophils # (Auto) 0.0 TH/MM3 0.0 TH/MM3 Basophils # (Auto) 0.0 TH/MM3 0.0 TH/MM3 CBC Comment DIFF FINAL DIFF FINAL Differential Comment Prothrombin Time 11.9 SEC Prothromb Time International 1.1 RATIO Ratio Activated Partial 24.8 SEC Thromboplast Time Sodium Level 139 MEQ/L 139 MEQ/L Potassium Level 3.9 MEQ/L 4.2 MEQ/L Chloride Level 108 MEQ/L 105 MEQ/L Carbon Dioxide Level 16.1 MEQ/L 18.8 MEQ/L Anion Gap 15 MEQ/L 15 MEQ/L Blood Urea Nitrogen 14 MG/DL 17 MG/DL Creatinine 1.32 MG/DL 1.37 MG/DL Estimat Glomerular Filtration 39 ML/MIN 38 ML/MIN Rate Random Glucose 139 MG/DL 210 MG/DL Lactic Acid Level 5.4 mmol/L 3.8 mmol/L Calcium Level 8.3 MG/DL 8.2 MG/DL Magnesium Level 1.5 MG/DL Total Bilirubin 0.6 MG/DL 0.5 MG/DL Aspartate Amino Transf 56 U/L 45 U/L (AST/SGOT) Alanine Aminotransferase 56 U/L 51 U/L (ALT/SGPT) Alkaline Phosphatase 86 U/L 72 U/L Total Creatine Kinase 250 U/L Creatine Kinase MB 8.3 NG/ML Creatine Kinase MB % 3.3 % Troponin I 0.16 NG/ML 0.14 NG/ML B-Type Natriuretic Peptide 4483 PG/ML 4805 PG/ML Total Protein 6.4 GM/DL 6.0 GM/DL Albumin 3.7 GM/DL 3.3 GM/DL D-Dimer Quantitative (PE/DVT) 5.29 MG/L FEU Test 06/06/16 06/06/16 12:00 14:17 Nasal Screen MRSA (PCR) NEGATIVE Troponin I 0.12 NG/ML Imaging Last Impressions CT Angiography 06/06/16 0000 Signed Impressions: Service Date/Time: June 01:30 - CONCLUSION: 1. Negative for pulmonary embolus. 2. Fairly extensive peribronchial thickening especially at the lung bases most characteristic of a bronchitis. 3. Small bilateral pleural effusions. No pericardial effusion. 4. Moderate to severe coronary artery calcifications. 5. Moderate centrilobular emphysema. Josh Almonte MD Chest X-Ray 06/05/162044 Signed Impressions: Service Date/Time: Sunday, June 05, 2016 21:31 - CONCLUSION: Advanced chronic obstructive pulmonary disease Mild generalized interstitial vascular prominence which may represent early congestion. Minimal bilateral effusions. Gilles Jim MD Objective Remarks General: NAD, AAOx3 Chest: Decreased air movement bilaterally Cardiac: Tachy, irregularly irregular Abd: +BS, soft ND/NT Ext: No edema Procedures 2D echo (06/06/16): - Estimated EF 35-40% - Severe hypokinesis of the anteroseptal myocardium - Mild to moderate mitral regurgitation - Moderate tricuspid regurgitation - PA peak pressure 77mmHg A/P Problem List: (1) Atrial fibrillation with RVR Status: Acute Plan: - Pt developed A. fib RVR with HR into the 160-180's on telemetry today - Pt denies any chest pain or palpitations - Pt given a dose of Digoxin IV today and initial improvement in her HR but again it increased back to the 150-160's - Pts BP has been low today with systolic in the 80's - Stop Lisinopril, last dose was on 3/2 - Consult Cardiology - Will give another dose of Digoxin and check level in AM - Add Amiodarone - Check TSH/Free T4 (2) COPD exacerbation Status: Acute Plan: - Pt admitted with worsening SOB, productive cough, and congestion that has progressively worsened over the last 3 weeks. - Labs at admission noted WNC count to be WNL. Her Lactic acid was elevated at 5.4. - She was given Zosyn and Azithromycin IV in the ER and these were continued upon admission. - Pt had an elevated BNP of 4483 at admission. - CXR (06/05) -->Advanced chronic obstructive pulmonary disease Mild generalized interstitial vascular prominence which may represent early congestion. Minimal bilateral effusions. - Pt was given Lasix 20mg IV x 2 in the ER. - Pts D-dimer was elevated. CTA lungs (06/05) --> Negative for pulmonary embolus. Fairly extensive peribronchial thickening especially at the lung bases most characteristic of a bronchitis. Small bilateral pleural effusions. No pericardial effusion. Moderate to severe coronary artery calcifications. Moderate centrilobular emphysema. - Cont. Solu-Medrol 60mg Q6H - Cont. Antibiotics - Duonebs Q6H WA and Q2H PRN - Supplemental O2 as needed - IS - Acapella - DVT prophylaxis (3) Bronchitis Status: Acute Plan: - See above. (4) CHF (congestive heart failure) Status: Acute Plan: - 2D echo (06/06/16): - Estimated EF 35-40% - Severe hypokinesis of the anteroseptal myocardium - Mild to moderate mitral regurgitation - Moderate tricuspid regurgitation - PA peak pressure 77mmHg - BNP was elevated over 4000 at admission - Pt was given Lasix x 2 doses in the ED. - Repeat BNP in AM (5) HTN (hypertension) Status: Chronic Plan: - Hold Lisinopril due to hypotension - Monitor (6) Elevated troponin Status: Acute Plan: - Flat pattern, 0.12-->0.14-->0.12 - No complaints of chest pain (7) Hyperlipidemia Status: Chronic (8) Tobacco use Status: Chronic Plan: - Counselled on tobacco cessation - Nicotine patch (9) Alcohol use Status: Chronic Plan: - Alcohol withdrawal precautions - Ativan PRN (10) Chronic back pain Status: Chronic Plan: - Cont. home meds Assessment and Plan Patient examined. Assessment and plan formulated with Saritha Marie PA-C. I agree with the above. Saritha Marie Jun 07, 2016 16:41 Richard Lopez DO Jun 09, 2016 16:23
[2016-06-07] MEDS: AMIODARONE INJ 450 MG in DEXTROSE 5% IN WATE(EXCEL) INJ 241 ML IV SCH ×2 (17:31)
[2016-06-07] MEDS ORDERED: ONDANSETRON HCL 4 MG/2 ML VIAL IV PRN (18:00)
[2016-06-07] MEDS ORDERED: AMIODARONE INJ 150 MG in DEXTROSE 5% IN WATER 100ML INJ 97 ML IV ONE ×2 (18:45)
[2016-06-07 20:11] LABS: FREE T4 1.19 NG/DL (0.76-1.46)
[2016-06-07] MEDS: REMOVE OLD NICODERM (NICOTINE) PATCH TD SCH (21:00)
[2016-06-07] MEDS: ENOXAPARIN SODIUM 30 MG/0.3 ML SYRINGE SQ SCH (21:28)
[2016-06-07] MEDS: DILTIAZEM HCL 30 MG TAB PO SCH (21:28)
--- NOTE | 2016-06-07 23:32 | MB ---
cc: PEDRO SIFUENTES MD, CARMEN A. M.D. SCHWARTZ, EDWARD B. DO DATE OF CONSULTATION 06/07/16 REASON FOR CONSULTATION Atrial fibrillation with rapid ventricular response HISTORY OF PRESENT ILLNESS Ms. Casas is a pleasant 76 year old female who does have a history of hypertension, hyperlipidemia, regular tobacco and alcohol use who presented with complaints of shortness of breath. She was being treated for her COPD when she had an episode of atrial fibrillation with rapid ventricular response. Cardiology was subsequently consulted for assistance with her atrial fibrillation. PAST MEDICAL HISTORY 1. Hypertension, 2. Hyperlipidemia, 3. COPD, 4. Depression/anxiety, 5. Back pain 6. Carotid artery stenosis 7. Osteoarthritis 8. Osteopenia. PAST SURGICAL HISTORY 1. Breast cancer status post lumpectomy 2. Uterine cancer status post JOSH 3. Appendectomy, 4. Splenectomy 5. Excision of a ganglion cyst. MEDICATIONS Outpatient, 1. Fentanyl 2. Lovastatin 3. Breo Ellipta 4. Zyrtec. 5. Megace 6. Omeprazole 7. Fluoxetine Of note, she told me her Lisinopril was discontinued. ALLERGIES MORPHINE LISINOPRIL PER THE COMPUTER FAMILY HISTORY Positive for cancer. SOCIAL HISTORY The patient does drink 3-4 beers a night and continues to smoke. REVIEW OF SYSTEMS Except what is mentioned in HPI all 12 systems are negative PHYSICAL EXAMINATION VITAL SIGNS: Heart rate 146, blood pressure 88/55. GENERAL: She is a thin female who is in no apparent distress. NECK: Free from JVD. LUNGS: Decreased but clear to auscultation. CARDIOVASCULAR: She has a irregularly irregular tachycardic rhythm. No rubs or gallops are appreciated. ABDOMEN: Soft. EXTREMITIES: Free from edema. CARDIOLOGY STUDIES Echocardiogram does show an EF of 35-40% with mild to moderate mitral regurgitation. LABORATORY DATA Hemoglobin of 10.8 with a creatinine of 1.37. Her troponins are 0.16/0.14/0.12 [place] 4805. IMPRESSION 1. Atrial fibrillation with rapid ventricular response - the patient is having some atrial fibrillation with the rapid ventricular rate. I am going to give her an amiodarone bolus in addition to the digoxin that was written for earlier. I would like to add Cardizem if her blood pressure does come up a little bit. The patient's CHADS vas score is six with a point for CHF/LV dysfunction, hypertension, age of 76, vascular disease and female. Her yearly event rate is 10-15% off of medications. Thus, at this point I am going to add Lovenox daily. Long-term anticoagulation will need to be evaluated with the primary team as she is mildly anemic now. 2. Cardiomyopathy - the patient's EF is 35-40%. 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 She is poor beta-blockade candidate given her severe COPD. As well, her blood pressure is too low for the lisinopril. Right now we are going to manage her conservatively. 3. COPD - This is being managed by the primary team. 4. Systolic heart failure - as above. Pedro Sifuentes M.D. FILIBERTO/ /7:00 PM /11:16 PM
[2016-06-08] VITALS (14 sets, daily range): BP systolic 92–128; BP diastolic 52–82; PULSE 70–101; RESP 13–20; TEMP 97.8–98.6; O2SAT 92–99
[2016-06-08] MEDS: PIPERACIL-TAZO 3.375 GM PREMIX 50 ML IV SCH ×4 (00:44→23:55)
[2016-06-08] MEDS: AZITHROMYCIN INJ 500 MG in SODIUM CHLOR 0.9% 250 ML INJ 250 ML IV SCH ×2 (00:44→23:56)
[2016-06-08] MEDS: AMIODARONE INJ 450 MG in DEXTROSE 5% IN WATE(EXCEL) INJ 241 ML IV SCH ×2 (00:48)
[2016-06-08] MEDS: methylPREDNISolone SOD SUCC 125 MG/2 ML VIAL IV PUSH SCH ×4 (04:59→21:32)
[2016-06-08 06:35] LABS: BICARBONATE 20.3 MEQ/L (21.0-32.0); MAGNESIUM 1.7 MG/DL (1.5-2.5)
[2016-06-08 06:36] LABS: AUTOMATED NEUTROPHIL # 18.5 TH/MM3 (1.8-7.7); BASOPHIL # 0.1 TH/MM3 (0-0.2); BASOPHIL % 0.3 % (0.0-2.0); HEMO FLAGS DIFF FINAL; LYMPH % 2.8 % (9.0-44.0); LYMPHOCYTE # 0.6 TH/MM3 (1.0-4.8); MEAN CORPUSCULAR HEMOGLOBIN 36.1 PG (27.0-34.0); MEAN CORPUSCULAR HGB CONC 33.4 % (32.0-36.0); MONO % 5.2 % (0.0-8.0); NEUT % 91.7 % (16.0-70.0); PLATELET COUNT 184 TH/MM3 (150-450); POTASSIUM 3.8 MEQ/L (3.5-5.1); RED BLOOD COUNT 3.05 MIL/MM3 (4.00-5.30); RED CELL DISTRIBUTION WIDTH 14.5 % (11.6-17.2); WHITE BLOOD COUNT 20.2 TH/MM3 (4.0-11.0)
[2016-06-08 06:46] LABS: DIGOXIN 1.7 NG/ML (0.8-2.0)
[2016-06-08] MEDS: RESP: ALBUTEROL 2.5 MG/IPRATROPIUM 0.5 MG NEB (SCH) NEB ×3 (07:47→20:09)
[2016-06-08] MEDS: DILTIAZEM HCL 30 MG TAB PO SCH (10:17)
[2016-06-08] MEDS: PRAVASTATIN SOD 40 MG TAB PO SCH (10:17)
[2016-06-08] MEDS: PANTOPRAZOLE SOD 20 MG DELAYED RELEASE TAB PO SCH (10:17)
[2016-06-08] MEDS: MEGESTROL ACETATE 40 MG TAB PO SCH ×2 (10:17→20:06)
[2016-06-08] MEDS: CETIRIZINE HCL 10 MG TAB PO SCH (10:17)
[2016-06-08] MEDS: NICOTINE 14 MG/24 HR PATCH TD SCH (10:19)
[2016-06-08] MEDS: SODIUM CHLORIDE 0.9% FLUSH 5 ML FLUSH FLUSH SCH ×2 (10:19→20:05)
[2016-06-08] MEDS: UMECLIDINIUM 62.5 MCG/VILANTEROL 25 MCG INHALER INH SCH (10:33)
--- NOTE | 2016-06-08 11:30 | PD.CARD.PN ---
Subjective Subjective Remarks Pt reports she is breathing better Objective Medications Current Medications Medications (Trade) Dose Ordered Sig/Jaciel Route Start Time Stop Time Status Last Admin (ZyrTEC) 10 mg DAILY PO 06/06/16 09:00 06/08/16 10:17 (Duragesic 50 Mcg Patch.72 Hr) 1 patch Q72H T-DERMAL 06/06/16 02:30 06/06/16 03:08 (Pravachol) 40 mg DAILY PO 06/06/16 09:00 06/08/16 10:17 (Protonix) 20 mg DAILY PO 06/06/16 09:00 06/08/16 10:17 (NS Flush) 2 ml UNSCH PRN FLUSH 06/06/16 02:30 (NS Flush) 2 ml BID FLUSH 06/06/16 09:00 06/08/16 10:19 (Tylenol) 650 mg Q8HR PRN PO 06/06/16 02:30 Naloxone HCl 0.4 mg 0.4 mg UNSCH PRN IV 06/06/16 02:30 Piperacillin Sod/ Tazobactam Sod 50 ml @ 100 mls/hr Q8H IV 06/06/16 08:00 06/08/16 10:17 (Zithromax Inj/ NS 250 ml Inj) 250 ml @ 250 mls/hr Q24H IV 06/07/16 00:00 06/08/16 00:44 (SoluMEDROL INJ) 60 mg Q6H IV PUSH 06/06/16 16:00 06/08/16 10:19 (Megace) 40 mg Q12HR PO 06/06/16 11:00 06/08/16 10:17 (Ativan Inj) 1 mg Q4H PRN IV PUSH 06/06/16 10:15 (Habitrol 14 Mg Patch.24 Hr) 1 patch DAILY TD 06/07/16 09:00 06/08/16 10:19 Miscellaneous Information 1 1 HS TD 06/07/16 21:00 06/07/16 21:00 (Cordarone Inj/ D5W ([place]) Inj) 250 ml @ 0 mls/hr CONTINUOUS IV 06/07/16 16:45 06/08/16 00:48 (Zofran Inj) 4 mg Q6H PRN IV 06/07/16 18:00 (Librium) 10 mg TID PO 06/07/16 17:00 06/08/16 10:17 (Lovenox Inj) 30 mg Q24H SQ 06/07/16 19:15 06/07/16 21:28 (Cardizem) 30 mg QID PO 06/07/16 21:00 06/08/16 10:17 Vital Signs / I&O Vital Signs Date Time Temp Pulse Resp B/P Pulse Ox O2 Delivery O2 Flow Rate FiO2 06/08/16 07:47 97 Nasal Cannula 3.00 06/08/16 06:00 73 06/08/16 04:00 73 06/08/16 04:00 98.6 70 13 100/57 98 06/08/16 02:00 83 06/08/16 00:00 98.2 75 15 100/57 98 06/08/16 00:00 75 06/07/16 22:00 84 06/07/16 20:00 98.0 116 20 111/54 99 06/07/16 20:00 116 06/07/16 19:38 99 Nasal Cannula 4.00 06/07/16 18:00 146 06/07/16 16:00 137 06/07/16 16:00 97.5 137 24 94/67 99 06/07/16 15:20 166 06/07/16 14:00 102 06/07/16 12:00 100 06/07/16 12:00 97.7 100 25 81/55 97 I/O 06/07/16 06/07/16 06/07/16 06/08/16 06/08/16 06/08/16 07:00 15:00 23:00 07:00 15:00 23:00 Intake Total 604 ml 658 ml 657 ml 657 ml Output Total 100 ml 400 ml 370 ml 175 ml Balance 504 ml 258 ml 287 ml 482 ml Intake Oral 300 ml 550 ml 300 ml 300 ml IV Total 304 ml 108 ml 357 ml 357 ml Output Urine Total 100 ml 400 ml 370 ml 175 ml # Voids 1 3 1 # Bowel Movements 1 Physical Exam GENERAL: Well developed, thin. No acute distress. HEENT: Jugular venous pressure is normal. CHEST: Lungs decreased clear to auscultation bilaterally. Unlabored respiratory effort. CARDIAC: Regular rate and rhythm without S3, S4, or murmur. ABDOMEN: Soft, nontender, no hepatosplenomegaly. Bowel sounds present. EXTREMITIES: No edema. Laboratory Laboratory Tests Test 06/07/16 06/08/16 19:27 05:51 Lactic Acid Level 5.2 mmol/L 2.8 mmol/L Free Thyroxine 1.19 NG/DL Thyroid Stimulating Hormone 0.317 uIU/ML 3rd Gen White Blood Count 20.2 TH/MM3 Red Blood Count 3.05 MIL/MM3 Hemoglobin 11.0 GM/DL Hematocrit 33.0 % Mean Corpuscular Volume 108.0 FL Mean Corpuscular Hemoglobin 36.1 PG Mean Corpuscular Hemoglobin 33.4 % Concent Red Cell Distribution Width 14.5 % Platelet Count 184 TH/MM3 Mean Platelet Volume 9.5 FL Neutrophils (%) (Auto) 91.7 % Lymphocytes (%) (Auto) 2.8 % Monocytes (%) (Auto) 5.2 % Eosinophils (%) (Auto) 0.0 % Basophils (%) (Auto) 0.3 % Neutrophils # (Auto) 18.5 TH/MM3 Lymphocytes # (Auto) 0.6 TH/MM3 Monocytes # (Auto) 1.0 TH/MM3 Eosinophils # (Auto) 0.0 TH/MM3 Basophils # (Auto) 0.1 TH/MM3 CBC Comment DIFF FINAL Differential Comment Sodium Level 135 MEQ/L Potassium Level 3.8 MEQ/L Chloride Level 102 MEQ/L Carbon Dioxide Level 20.3 MEQ/L Anion Gap 13 MEQ/L Blood Urea Nitrogen 25 MG/DL Creatinine 1.24 MG/DL Estimat Glomerular Filtration 42 ML/MIN Rate Random Glucose 122 MG/DL Calcium Level 8.6 MG/DL Magnesium Level 1.7 MG/DL B-Type Natriuretic Peptide 1443 PG/ML Digoxin Level 1.7 NG/ML Assessment and Plan Assessment and Plan IMPRESSION1. AF- in NSR today -change to PO amio, - CHADS VASC=6, HTN, female, CHF, PAD, >75; on lovenox -Her yearly event rate is 10-15% off of medications. Long-term anticoagulation will need to be evaluated with the primary team as she is mildly anemic now. 2. Cardiomyopathy - the patient's EF is 35-40%. 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 She is poor beta-blockade candidate given her severe COPD. As well, her blood pressure is too low for the lisinopril. Right now we are going to manage her conservatively. 3. COPD - This is being managed by the primary team. 4. Systolic heart failure - as above. Jo-Ann Mercer MD Jun 08, 2016 11:30
[2016-06-08] MEDS ORDERED: DILTIAZEM HCL 30 MG TAB PO PRN (11:45)
--- NOTE | 2016-06-08 16:36 | HHI.PR ---
Subjective Remarks No new complaints. Pt denies chest pain or palpitations. Pt is less SOB from admission. Objective Vitals Vital Signs Date Time Temp Pulse Resp B/P Pulse Ox O2 Delivery O2 Flow Rate FiO2 06/08/16 14:00 72 06/08/16 12:00 98.3 76 19 92/52 95 06/08/16 12:00 76 06/08/16 10:00 78 06/08/16 08:00 73 06/08/16 08:00 97.9 75 13 128/58 97 06/08/16 07:47 97 Nasal Cannula 3.00 06/08/16 06:00 73 06/08/16 04:00 73 06/08/16 04:00 98.6 70 13 100/57 98 06/08/16 02:00 83 06/08/16 00:00 98.2 75 15 100/57 98 06/08/16 00:00 75 06/07/16 22:00 84 06/07/16 20:00 98.0 116 20 111/54 99 06/07/16 20:00 116 06/07/16 19:38 99 Nasal Cannula 4.00 06/07/16 18:00 146 06/07/16 06/07/16 06/08/16 15:00 23:00 07:00 Intake Total 658 ml 657 ml 657 ml Output Total 400 ml 370 ml 175 ml Balance 258 ml 287 ml 482 ml Intake Oral 550 ml 300 ml 300 ml IV Total 108 ml 357 ml 357 ml Output Urine Total 400 ml 370 ml 175 ml # Voids 3 1 # Bowel Movements 1 Result Diagram: 06/08/16 0551 06/08/16 [address] Angiography 06/06/16 0000 Signed Impressions: Service Date/Time: June 01:30 - CONCLUSION: 1. Negative for pulmonary embolus. 2. Fairly extensive peribronchial thickening especially at the lung bases most characteristic of a bronchitis. 3. Small bilateral pleural effusions. No pericardial effusion. 4. Moderate to severe coronary artery calcifications. 5. Moderate centrilobular emphysema. Josh Almonte MD Chest X-Ray 06/05/162044 Signed Impressions: Service Date/Time: Sunday, June 05, 2016 21:31 - CONCLUSION: Advanced chronic obstructive pulmonary disease Mild generalized interstitial vascular prominence which may represent early congestion. Minimal bilateral effusions. Gilles Jim MD Objective Remarks General: NAD, AAOx3 Chest: Decreased air movement bilaterally Cardiac: regular Abd: +BS, soft ND/NT Ext: No edema Procedures 2D echo (06/06/16): - Estimated EF 35-40% - Severe hypokinesis of the anteroseptal myocardium - Mild to moderate mitral regurgitation - Moderate tricuspid regurgitation - PA peak pressure 77mmHg A/P Problem List: (1) Atrial fibrillation with RVR Status: Acute Plan: - comgmt with Cardiology - Pt developed A. fib RVR with HR into the 160-180's on telemetry 06/07/16 - Pt denies any chest pain or palpitations - Pt given a dose of Digoxin IV today and initial improvement in her HR but again it increased back to the 150-160's - Pt's BPs low - Lisinopril stopped, last dose was on 06/06 - IV Amiodarone converted to PO - Pt started on PO cardizem - digoxin stopped - Case d/w Cardiology (06/08/16), Dr. Mayer - will start anticoagulation prior to discharge d/t elevated ROBERT-VAS score, observe for fall risk (2) COPD exacerbation Status: Acute Plan: - Pt admitted with worsening SOB, productive cough, and congestion that has progressively worsened over the last 3 weeks. - Labs at admission noted WNC count to be WNL. Her Lactic acid was elevated at 5.4. - She was given Zosyn and Azithromycin IV in the ER and these were continued upon admission. - Pt had an elevated BNP of 4483 at admission. - CXR (06/05) -->Advanced chronic obstructive pulmonary disease Mild generalized interstitial vascular prominence which may represent early congestion. Minimal bilateral effusions. - Pt was given Lasix 20mg IV x 2 in the ER. - Pts D-dimer was elevated. CTA lungs (06/05) --> Negative for pulmonary embolus. Fairly extensive peribronchial thickening especially at the lung bases most characteristic of a bronchitis. Small bilateral pleural effusions. No pericardial effusion. Moderate to severe coronary artery calcifications. Moderate centrilobular emphysema. - Cont. Solu-Medrol 60mg Q6H - continue zosyn - Duonebs Q6H WA and Q2H PRN - Supplemental O2 as needed - IS - Acapella - DVT prophylaxis (3) Bronchitis Status: Acute Plan: - See above. (4) CHF (congestive heart failure) Status: Acute Plan: - 2D echo (06/06/16): - Estimated EF 35-40% - Severe hypokinesis of the anteroseptal myocardium - Mild to moderate mitral regurgitation - Moderate tricuspid regurgitation - PA peak pressure 77mmHg - BNP was elevated over 4000 at admission - Pt was given Lasix x 2 doses in the ED. - Repeat BNP in AM (5) HTN (hypertension) Status: Chronic Plan: - Hold Lisinopril due to hypotension - Monitor (6) Elevated troponin Status: Acute Plan: - Flat pattern, 0.12-->0.14-->0.12 - No complaints of chest pain (7) Hyperlipidemia Status: Chronic (8) Tobacco use Status: Chronic Plan: - Counselled on tobacco cessation - Nicotine patch (9) Alcohol use Status: Chronic Plan: - Alcohol withdrawal precautions - pt started on scheduled librium 10mg TID - Ativan PRN (10) Chronic back pain Status: Chronic Plan: - Cont. home meds Richard Lopez DO Jun 08, 2016 16:36
--- NOTE | 2016-06-08 19:20 | EKG ---
Date Performed: 06/07/2016 Time Performed: 15:17:42 PTAGE: 76 years EKG: Atrial fibrillation with rapid ventricular response with PVC(s) or aberrant ventricular con duction. Leftward axis Possible septal infarct - age undetermined Lateral T wave changes Since previo us tracing, no significant change noted Abnormal ECG PREVIOUS TRACING : 06/05/2016 21.16 DOCTOR: Alberto Gilliam Interpretating Date/Time 06/08/2016 19:19:00
[2016-06-08] MEDS: REMOVE OLD NICODERM (NICOTINE) PATCH TD SCH (20:05)
[2016-06-08] MEDS: ENOXAPARIN SODIUM 30 MG/0.3 ML SYRINGE SQ SCH (20:05)
[2016-06-09] VITALS (13 sets, daily range): BP systolic 92–146; BP diastolic 55–72; PULSE 72–110; RESP 14–20; TEMP 97.8–98.4; O2SAT 94–100
[2016-06-09] MEDS: methylPREDNISolone SOD SUCC 125 MG/2 ML VIAL IV PUSH SCH ×4 (03:24→20:23)
[2016-06-09] MEDS: fentaNYL 50 MCG/HR PATCH T-DERMAL SCH (03:24)
[2016-06-09] MEDS: RESP: ALBUTEROL 2.5 MG/IPRATROPIUM 0.5 MG NEB (SCH) NEB ×3 (08:00→19:49)
--- NOTE | 2016-06-09 08:48 | RADRPT ---
EXAM DATE/TIME: 06/09/2016 08:27 [facility] COMPARISON: CT PULMONARY ANGIOGRAM, June 06, 2016, 1:30. CHEST SINGLE AP, June 05, 2016, 21:31. INDICATIONS : Follow up COPD. MEDICAL HISTORY : Chronic obstructive pulmonary disease. SURGICAL HISTORY : None. ENCOUNTER: Subsequent ACUITY: 3 days PAIN SCORE: 5/10 LOCATION: Bilateral chest FINDINGS: Portable AP view of the chest demonstrates a normal-sized cardiac silhouette. Background lung changes diagnostic of emphysema are again appreciated. There are stable small bibasilar pleural-parenchymal opacities. No pneumothorax is visualized. Bones and soft tissues demonstrate no acute finding. CONCLUSION: Stable chest x-ray with findings diagnostic of emphysema and small bilateral pleural effusions with a ssociated compressive atelectasis and/or consolidation at the lung bases. Howie Khan MD on June 09, 2016 at 8:45 Board Certified Radiologist. This report was verified electronically.
[2016-06-09] MEDS ORDERED: DIGOXIN 0.125 MG TAB PO SCH (09:00)
[2016-06-09] MEDS: AMIODARONE 200 MG TAB PO SCH (10:01)
[2016-06-09] MEDS: PIPERACIL-TAZO 3.375 GM PREMIX 50 ML IV SCH ×3 (10:01→22:43)
[2016-06-09] MEDS: SODIUM CHLORIDE 0.9% FLUSH 5 ML FLUSH FLUSH SCH ×2 (10:01→20:23)
[2016-06-09] MEDS: DILTIAZEM-CD 120 MG CAP ER PO SCH (10:01)
[2016-06-09] MEDS: CETIRIZINE HCL 10 MG TAB PO SCH (10:02)
[2016-06-09] MEDS: PRAVASTATIN SOD 40 MG TAB PO SCH (10:02)
[2016-06-09] MEDS: NICOTINE 14 MG/24 HR PATCH TD SCH (10:02)
[2016-06-09] MEDS: MEGESTROL ACETATE 40 MG TAB PO SCH ×2 (10:02→20:23)
[2016-06-09] MEDS: PANTOPRAZOLE SOD 20 MG DELAYED RELEASE TAB PO SCH (10:02)
[2016-06-09] MEDS: UMECLIDINIUM 62.5 MCG/VILANTEROL 25 MCG INHALER INH SCH (10:03)
[2016-06-09 10:05] LABS: BASOPHIL % 0.1 % (0.0-2.0); HEMATOCRIT 34.1 % (35.0-46.0); HEMO FLAGS DIFF FINAL; LYMPH % 2.5 % (9.0-44.0); LYMPHOCYTE # 0.4 TH/MM3 (1.0-4.8); MEAN CELL VOLUME 103.3 FL (80.0-100.0); MEAN CORPUSCULAR HEMOGLOBIN 35.6 PG (27.0-34.0); MEAN CORPUSCULAR HGB CONC 34.4 % (32.0-36.0); MONO % 4.1 % (0.0-8.0); NEUT % 93.3 % (16.0-70.0); PLATELET COUNT 221 TH/MM3 (150-450); RED CELL DISTRIBUTION WIDTH 14.3 % (11.6-17.2)
[2016-06-09 10:31] LABS: MAGNESIUM 1.6 MG/DL (1.5-2.5)
[2016-06-09 10:38] LABS: POTASSIUM 2.5 MEQ/L (3.5-5.1)
[2016-06-09] MEDS: POTASSIUM CHLORIDE 20 MEQ CONTROLLED RELEASE TAB PO SCH ×2 (11:38→15:08)
--- NOTE | 2016-06-09 16:26 | HHI.PR ---
Subjective Remarks No new complaints. Objective Vitals Vital Signs Date Time Temp Pulse Resp B/P Pulse Ox O2 Delivery O2 Flow Rate FiO2 06/09/16 14:00 83 06/09/16 12:00 87 06/09/16 12:00 97.9 87 14 107/67 100 06/09/16 11:29 99 Nasal Cannula 2.00 06/09/16 10:00 110 06/09/16 08:00 98.2 83 16 146/70 100 06/09/16 08:00 83 06/09/16 06:00 80 06/09/16 04:24 20 06/09/16 04:00 80 06/09/16 04:00 98.4 80 14 128/72 100 06/09/16 02:00 80 06/09/16 00:00 98.0 86 19 116/59 98 06/09/16 00:00 86 06/08/16 22:00 95 06/08/16 20:09 99 Nasal Cannula 2.00 06/08/16 20:00 97.8 86 20 119/82 92 06/08/16 20:00 86 06/08/16 18:00 101 06/08/16 06/08/16 06/09/16 15:00 23:00 07:00 Intake Total 1260 ml 104 ml 304 ml Output Total 500 ml 1000 ml Balance 1260 ml -396 ml -696 ml Intake Oral 480 ml IV Total 780 ml 104 ml 304 ml Output Urine Total 500 ml 1000 ml # Voids 3 # Bowel Movements 2 1 Result Diagram: 06/09/16 0940 06/09/16 [address] Angiography 06/06/16 0000 Signed Impressions: Service Date/Time: June 01:30 - CONCLUSION: 1. Negative for pulmonary embolus. 2. Fairly extensive peribronchial thickening especially at the lung bases most characteristic of a bronchitis. 3. Small bilateral pleural effusions. No pericardial effusion. 4. Moderate to severe coronary artery calcifications. 5. Moderate centrilobular emphysema. Josh Almonte MD Chest X-Ray 06/05/162044 Signed Impressions: Service Date/Time: Sunday, June 05, 2016 21:31 - CONCLUSION: Advanced chronic obstructive pulmonary disease Mild generalized interstitial vascular prominence which may represent early congestion. Minimal bilateral effusions. Gilles Jim MD Objective Remarks General: NAD, AAOx3 Chest: Decreased air movement bilaterally Cardiac: regular Abd: +BS, soft ND/NT Ext: No edema Procedures 2D echo (06/06/16): - Estimated EF 35-40% - Severe hypokinesis of the anteroseptal myocardium - Mild to moderate mitral regurgitation - Moderate tricuspid regurgitation - PA peak pressure 77mmHg A/P Problem List: (1) Atrial fibrillation with RVR Status: Acute Plan: - comgmt with Cardiology - Pt developed A. fib RVR with HR into the 160-180's on telemetry 06/07/16 - Pt denies any chest pain or palpitations - Pt's BPs low - Lisinopril stopped, last dose was on 06/06 - IV Amiodarone converted to PO - Pt started on PO cardizem - digoxin stopped - Case d/w Cardiology (06/08/16), Dr. Mayer - low dose lovenox - will start anticoagulation prior to discharge d/t elevated ROBERT-VAS score, observe for fall risk (2) COPD exacerbation Status: Acute Plan: - Pt admitted with worsening SOB, productive cough, and congestion that has progressively worsened over the last 3 weeks. - Labs at admission noted WNC count to be WNL. Her Lactic acid was elevated at 5.4. - She was given Zosyn and Azithromycin IV in the ER and these were continued upon admission. - Pt had an elevated BNP of 4483 at admission. - CXR (06/05) -->Advanced chronic obstructive pulmonary disease Mild generalized interstitial vascular prominence which may represent early congestion. Minimal bilateral effusions. - Pt was given Lasix 20mg IV x 2 in the ER. - Pts D-dimer was elevated. CTA lungs (06/05) --> Negative for pulmonary embolus. Fairly extensive peribronchial thickening especially at the lung bases most characteristic of a bronchitis. Small bilateral pleural effusions. No pericardial effusion. Moderate to severe coronary artery calcifications. Moderate centrilobular emphysema. - Cont. Solu-Medrol 60mg Q6H - continue zosyn - Duonebs Q6H WA and Q2H PRN - Supplemental O2 as needed - IS - Acapella - DVT prophylaxis (3) Bronchitis Status: Acute Plan: - See above. (4) CHF (congestive heart failure) Status: Acute Plan: - 2D echo (06/06/16): - Estimated EF 35-40% - Severe hypokinesis of the anteroseptal myocardium - Mild to moderate mitral regurgitation - Moderate tricuspid regurgitation - PA peak pressure 77mmHg - BNP was elevated over 4000 at admission - Pt was given Lasix x 2 doses in the ED. - Repeat BNP in AM (5) HTN (hypertension) Status: Chronic Plan: - Hold Lisinopril due to hypotension - Monitor (6) Elevated troponin Status: Acute Plan: - Flat pattern, 0.12-->0.14-->0.12 - No complaints of chest pain (7) Hyperlipidemia Status: Chronic (8) Tobacco use Status: Chronic Plan: - Counselled on tobacco cessation - Nicotine patch (9) Alcohol use Status: Chronic Plan: - Alcohol withdrawal precautions - pt started on scheduled librium 10mg TID - Ativan PRN (10) Chronic back pain Status: Chronic Plan: - Cont. home meds Assessment and Plan Patient examined. Assessment and plan formulated with Saritha Marie PA-C. I agree with the above. Richard Lopez DO Jun 09, 2016 16:26
[2016-06-09] MEDS: ENOXAPARIN SODIUM 30 MG/0.3 ML SYRINGE SQ SCH (18:19)
[2016-06-09] MEDS: REMOVE OLD NICODERM (NICOTINE) PATCH TD SCH (20:25)
[2016-06-09] MEDS: AZITHROMYCIN INJ 500 MG in SODIUM CHLOR 0.9% 250 ML INJ 250 ML IV SCH (22:43)
[2016-06-10] VITALS (11 sets, daily range): BP systolic 89–124; BP diastolic 51–62; PULSE 66–86; RESP 16–20; TEMP 97.4–98.6; O2SAT 91–98
[2016-06-10] MEDS: methylPREDNISolone SOD SUCC 125 MG/2 ML VIAL IV PUSH SCH (02:47)
[2016-06-10 08:03] LABS: AUTOMATED NEUTROPHIL # 10.9 TH/MM3 (1.8-7.7); HEMATOCRIT 33.5 % (35.0-46.0); HEMO FLAGS DIFF FINAL; LYMPH % 3.3 % (9.0-44.0); LYMPHOCYTE # 0.4 TH/MM3 (1.0-4.8); MEAN CELL VOLUME 103.9 FL (80.0-100.0); MEAN CORPUSCULAR HEMOGLOBIN 35.3 PG (27.0-34.0); MONO % 3.8 % (0.0-8.0); NEUT % 92.9 % (16.0-70.0); PLATELET COUNT 209 TH/MM3 (150-450); RED BLOOD COUNT 3.22 MIL/MM3 (4.00-5.30); RED CELL DISTRIBUTION WIDTH 14.2 % (11.6-17.2); WHITE BLOOD COUNT 11.8 TH/MM3 (4.0-11.0)
[2016-06-10 08:27] LABS: MAGNESIUM 1.7 MG/DL (1.5-2.5); POTASSIUM 3.1 MEQ/L (3.5-5.1)
--- NOTE | 2016-06-10 09:07 | HHI.PR ---
Subjective Remarks doing better. less sob but very weak with ambulation. Objective Vitals heart reg lung good air entry abd s/nt ext no edema 1.5L o2 Vital Signs Date Time Temp Pulse Resp B/P Pulse Ox O2 Delivery O2 Flow Rate FiO2 06/10/16 08:27 97 Nasal Cannula 2.00 06/10/16 04:52 97.7 66 18 124/62 91 06/10/16 00:00 98.6 74 18 101/60 95 06/09/16 20:00 79 06/09/16 20:00 98.3 80 20 92/55 94 06/09/16 19:49 98 Nasal Cannula 2.00 06/09/16 18:04 97.8 72 20 119/69 96 06/09/16 16:00 74 06/09/16 14:00 83 06/09/16 12:00 87 06/09/16 12:00 97.9 87 14 107/67 100 06/09/16 11:29 99 Nasal Cannula 2.00 06/09/16 10:00 110 06/09/16 06/09/16 06/10/16 15:00 23:00 07:00 Intake Total 410 ml 202 ml 356 ml Output Total 750 ml 200 ml Balance -340 ml 202 ml 156 ml Intake Oral 360 ml 200 ml IV Total 50 ml 2 ml 356 ml Output Urine Total 750 ml 200 ml # Voids 2 # Bowel Movements 3 0 Result Diagram: 06/10/16 0650 06/10/16 [address] Angiography 06/06/16 0000 Signed Impressions: Service Date/Time: June 01:30 - CONCLUSION: 1. Negative for pulmonary embolus. 2. Fairly extensive peribronchial thickening especially at the lung bases most characteristic of a bronchitis. 3. Small bilateral pleural effusions. No pericardial effusion. 4. Moderate to severe coronary artery calcifications. 5. Moderate centrilobular emphysema. Josh Almonte MD Chest X-Ray 06/05/162044 Signed Impressions: Service Date/Time: Sunday, June 05, 2016 21:31 - CONCLUSION: Advanced chronic obstructive pulmonary disease Mild generalized interstitial vascular prominence which may represent early congestion. Minimal bilateral effusions. Gilles Jim MD Procedures 2D echo (06/06/16): - Estimated EF 35-40% - Severe hypokinesis of the anteroseptal myocardium - Mild to moderate mitral regurgitation - Moderate tricuspid regurgitation - PA peak pressure 77mmHg A/P Problem List: (1) Atrial fibrillation with RVR Status: Acute Plan: - comgmt with Cardiology - Pt developed A. fib RVR with HR into the 160-180's on telemetry 06/07/16 - Pt denies any chest pain or palpitations -converted to sinus - Pt's BPs low - Lisinopril stopped, last dose was on 06/06 - currently on cardizem and amiodarone. - cardiology recommended anticoagulation on d/c due to high [id number] score Pt will need snf on d/c due to weakness. (2) COPD exacerbation Status: Acute Plan: - Pt admitted with worsening SOB, productive cough, and congestion that has progressively worsened over the last 3 weeks. - Labs at admission noted WNC count to be WNL. Her Lactic acid was elevated at 5.4. - She was given Zosyn and Azithromycin IV in the ER and these were continued upon admission. - Pt had an elevated BNP of 4483 at admission. - CXR (06/05) -->Advanced chronic obstructive pulmonary disease Mild generalized interstitial vascular prominence which may represent early congestion. Minimal bilateral effusions. - Pt was given Lasix 20mg IV x 2 in the ER. - Pts D-dimer was elevated. CTA lungs (06/05) --> Negative for pulmonary embolus. Fairly extensive peribronchial thickening especially at the lung bases most characteristic of a bronchitis. Small bilateral pleural effusions. No pericardial effusion. Moderate to severe coronary artery calcifications. Moderate centrilobular emphysema. Treatment was initiated for copd exacerbation and bronchitis convert iv to po steroid taper and iv to po abx complete the course. cont nebs wean o2 (3) CHF (congestive heart failure) Status: Acute Plan: - 2D echo (06/06/16): - Estimated EF 35-40% - Severe hypokinesis of the anteroseptal myocardium - Mild to moderate mitral regurgitation - Moderate tricuspid regurgitation - PA peak pressure 77mmHg - BNP was elevated over 4000 at admission cardiology feels chf is due to tachycardia. (4) Bronchitis Status: Acute Plan: - See above. (5) HTN (hypertension) Status: Chronic Plan: - Hold Lisinopril due to hypotension - Monitor (6) Elevated troponin Status: Acute Plan: - Flat pattern, 0.12-->0.14-->0.12 - No complaints of chest pain (7) Hyperlipidemia Status: Chronic (8) Tobacco use Status: Chronic Plan: - Counselled on tobacco cessation - Nicotine patch (9) Alcohol use Status: Chronic Plan: - Alcohol withdrawal precautions - pt started on scheduled librium 10mg TID - Ativan PRN (10) Chronic back pain Status: Chronic Plan: - Cont. home meds Ty Combs MD Jun 10, 2016 09:07
[2016-06-10] MEDS ORDERED: POTASSIUM CHLORIDE 20 MEQ CONTROLLED RELEASE TAB PO ONE (09:15)
[2016-06-10] MEDS ORDERED: LORazepam 1 MG TAB PO PRN (09:15)
[2016-06-10] MEDS ORDERED: predniSONE 20 MG TAB PO ONE (09:15)
[2016-06-10] MEDS: NICOTINE 14 MG/24 HR PATCH TD SCH (09:45)
[2016-06-10] MEDS: DILTIAZEM-CD 120 MG CAP ER PO SCH (09:46)
[2016-06-10] MEDS: AMIODARONE 200 MG TAB PO SCH (09:46)
[2016-06-10] MEDS: PRAVASTATIN SOD 40 MG TAB PO SCH (09:46)
[2016-06-10] MEDS: MEGESTROL ACETATE 40 MG TAB PO SCH ×2 (09:46→21:27)
[2016-06-10] MEDS: PANTOPRAZOLE SOD 20 MG DELAYED RELEASE TAB PO SCH (09:46)
[2016-06-10] MEDS: CETIRIZINE HCL 10 MG TAB PO SCH (09:46)
[2016-06-10] MEDS: LEVOFLOXACIN 500 MG TAB PO SCH (09:53)
[2016-06-10] MEDS: SODIUM CHLORIDE 0.9% FLUSH 5 ML FLUSH FLUSH SCH ×2 (09:55→21:28)
[2016-06-10] MEDS: UMECLIDINIUM 62.5 MCG/VILANTEROL 25 MCG INHALER INH SCH (09:55)
--- NOTE | 2016-06-10 11:20 | PD.CARD.PN ---
Subjective Subjective Remarks Pt without CV complaints Objective Medications Current Medications Medications (Trade) Dose Ordered Sig/Jaciel Route Start Time Stop Time Status Last Admin (ZyrTEC) 10 mg DAILY PO 06/06/16 09:00 06/10/16 09:46 (Duragesic 50 Mcg Patch.72 Hr) 1 patch Q72H T-DERMAL 06/06/16 02:30 06/09/16 03:24 (Pravachol) 40 mg DAILY PO 06/06/16 09:00 06/10/16 09:46 (Protonix) 20 mg DAILY PO 06/06/16 09:00 06/10/16 09:46 (NS Flush) 2 ml UNSCH PRN FLUSH 06/06/16 02:30 (NS Flush) 2 ml BID FLUSH 06/06/16 09:00 06/10/16 09:55 (Tylenol) 650 mg Q8HR PRN PO 06/06/16 02:30 (Narcan Inj) 0.4 mg UNSCH PRN IV 06/06/16 02:30 (Megace) 40 mg Q12HR PO 06/06/16 11:00 06/10/16 09:46 (Habitrol 14 Mg Patch.24 Hr) 1 patch DAILY TD 06/07/16 09:00 06/10/16 09:45 Miscellaneous Information 1 HS TD 06/07/16 21:00 06/09/16 20:25 (Zofran Inj) 4 mg Q6H PRN IV 06/07/16 18:00 (Lovenox Inj) 30 mg Q24H SQ 06/07/16 19:15 06/09/16 18:19 (Cardizem) 30 mg QID PRN PO 06/08/16 11:45 (Cardizem Cd) 120 mg DAILY PO 06/09/16 09:00 06/10/16 09:46 (Cordarone) 200 mg DAILY PO 06/09/16 09:00 06/10/16 09:46 (KCl) 20 meq Q12HR PO 06/10/16 21:00 (Levaquin) 500 mg DAILY PO 06/10/16 10:00 06/10/16 09:53 (Librium) 10 mg BID PO 06/10/16 21:00 (Ativan) 1 mg Q8H PRN PO 06/10/16 09:15 (Deltasone) 20 mg BID PO 06/10/16 21:00 Vital Signs / I&O Vital Signs Date Time Temp Pulse Resp B/P Pulse Ox O2 Delivery O2 Flow Rate FiO2 06/10/16 08:27 97 Nasal Cannula 2.00 06/10/16 08:05 97.4 70 16 99/57 92 06/10/16 04:52 97.7 66 18 124/62 91 06/10/16 00:00 98.6 74 18 101/60 95 06/09/16 20:00 79 06/09/16 20:00 98.3 80 20 92/55 94 06/09/16 19:49 98 Nasal Cannula 2.00 06/09/16 18:04 97.8 72 20 119/69 96 06/09/16 16:00 74 06/09/16 14:00 83 06/09/16 12:00 87 06/09/16 12:00 97.9 87 14 107/67 100 06/09/16 11:29 99 Nasal Cannula 2.00 I/O 06/09/16 06/09/16 06/09/16 06/10/16 06/10/16 06/10/16 07:00 15:00 23:00 07:00 15:00 23:00 Intake Total 304 ml 410 ml 202 ml 356 ml Output Total 1000 ml 750 ml 200 ml Balance -696 ml -340 ml 202 ml 156 ml Intake Oral 360 ml 200 ml IV Total 304 ml 50 ml 2 ml 356 ml Output Urine Total 1000 ml 750 ml 200 ml # Voids 2 # Bowel Movements 3 0 Physical Exam GENERAL: Well developed, thin. No acute distress. HEENT: Jugular venous pressure is normal. CHEST: Lungs decreased clear to auscultation bilaterally. Unlabored respiratory effort. CARDIAC: Regular rate and rhythm without S3, S4, or murmur. ABDOMEN: Soft, nontender, no hepatosplenomegaly. Bowel sounds present. EXTREMITIES: No edema. Laboratory Laboratory Tests Test 06/10/16 06:50 White Blood Count 11.8 TH/MM3 Red Blood Count 3.22 MIL/MM3 Hemoglobin 11.4 GM/DL Hematocrit 33.5 % Mean Corpuscular Volume 103.9 FL Mean Corpuscular Hemoglobin 35.3 PG Mean Corpuscular Hemoglobin 34.0 % Concent Red Cell Distribution Width 14.2 % Platelet Count 209 TH/MM3 Mean Platelet Volume 9.6 FL Neutrophils (%) (Auto) 92.9 % Lymphocytes (%) (Auto) 3.3 % Monocytes (%) (Auto) 3.8 % Eosinophils (%) (Auto) 0.0 % Basophils (%) (Auto) 0.0 % Neutrophils # (Auto) 10.9 TH/MM3 Lymphocytes # (Auto) 0.4 TH/MM3 Monocytes # (Auto) 0.4 TH/MM3 Eosinophils # (Auto) 0.0 TH/MM3 Basophils # (Auto) 0.0 TH/MM3 CBC Comment DIFF FINAL Differential Comment Sodium Level 142 MEQ/L Potassium Level 3.1 MEQ/L Chloride Level 102 MEQ/L Carbon Dioxide Level 28.0 MEQ/L Anion Gap 12 MEQ/L Blood Urea Nitrogen 22 MG/DL Creatinine 1.07 MG/DL Estimat Glomerular Filtration 50 ML/MIN Rate Random Glucose 122 MG/DL Calcium Level 8.6 MG/DL Magnesium Level 1.7 MG/DL B-Type Natriuretic Peptide 1008 PG/ML Assessment and Plan Assessment and Plan IMPRESSION1. AF- in NSR today - on PO amio and cardizem, - CHADS VASC=6, HTN, female, CHF, PAD, >75; -Her yearly event rate is 10-15% off of medications. Long-term anticoagulation will need to be evaluated with the primary team as she is mildly anemic now. 2. Cardiomyopathy - the patient's EF is 35-40%. This is likely a tachycardia induced -BP a bit too low for JOANNE 3. COPD - This is being managed by the primary team. 4. Systolic heart failure - as above. Jo-Ann Mercer MD Jun 10, 2016 11:19
[2016-06-10] MEDS: RESP: ALBUTEROL 2.5 MG/IPRATROPIUM 0.5 MG NEB (SCH) NEB ×2 (13:57→19:41)
[2016-06-10] MEDS: REMOVE OLD NICODERM (NICOTINE) PATCH TD SCH (21:00)
[2016-06-10] MEDS ORDERED: POTASSIUM CHLORIDE 20 MEQ CONTROLLED RELEASE TAB PO SCH (21:00)
[2016-06-10] MEDS: predniSONE 20 MG TAB PO SCH (21:27)
[2016-06-10] MEDS: ENOXAPARIN SODIUM 30 MG/0.3 ML SYRINGE SQ SCH (21:28)
[2016-06-11] VITALS (10 sets, daily range): BP systolic 93–120; BP diastolic 55–69; PULSE 76–95; RESP 16–18; TEMP 97.8–98.5; O2SAT 95–98
[2016-06-11] MEDS: RESP: ALBUTEROL 2.5 MG/IPRATROPIUM 0.5 MG NEB (SCH) NEB ×3 (08:37→19:19)
--- NOTE | 2016-06-11 08:38 | HHI.PR ---
Subjective Remarks eating breakfast. describes weakness with ambulation. Objective Vitals heart reg lung scattered wheezing. abd s/nt ext no edema Vital Signs Date Time Temp Pulse Resp B/P Pulse Ox O2 Delivery O2 Flow Rate FiO2 06/11/16 04:58 77 18 113/64 98 06/10/16 23:52 98.3 79 20 91/57 98 06/10/16 21:04 80 06/10/16 20:16 97.9 84 20 95/53 98 06/10/16 19:41 93 Nasal Cannula 2.00 06/10/16 16:05 98.0 86 16 98/51 94 06/10/16 12:09 98.2 75 16 89/54 95 06/10/16 06/10/16 06/11/16 15:00 23:00 07:00 Intake Total 480 ml 242 ml 240 ml Output Total 250 ml Balance 480 ml 242 ml -10 ml Intake Oral 480 ml 240 ml 240 ml IV Total 2 ml Output Urine Total 250 ml # Voids 6 2 # Bowel Movements 1 1 0 Result Diagram: 06/10/16 0650 06/10/16 [address] Angiography 06/06/16 0000 Signed Impressions: Service Date/Time: June 01:30 - CONCLUSION: 1. Negative for pulmonary embolus. 2. Fairly extensive peribronchial thickening especially at the lung bases most characteristic of a bronchitis. 3. Small bilateral pleural effusions. No pericardial effusion. 4. Moderate to severe coronary artery calcifications. 5. Moderate centrilobular emphysema. Josh Almonte MD Chest X-Ray 06/05/162044 Signed Impressions: Service Date/Time: Sunday, June 05, 2016 21:31 - CONCLUSION: Advanced chronic obstructive pulmonary disease Mild generalized interstitial vascular prominence which may represent early congestion. Minimal bilateral effusions. Gilles Jim MD Procedures 2D echo (06/06/16): - Estimated EF 35-40% - Severe hypokinesis of the anteroseptal myocardium - Mild to moderate mitral regurgitation - Moderate tricuspid regurgitation - PA peak pressure 77mmHg A/P Problem List: (1) Atrial fibrillation with RVR Status: Acute Plan: - comgmt with Cardiology - Pt developed A. fib RVR with HR into the 160-180's on telemetry 06/07/16 - Pt denies any chest pain or palpitations -converted to sinus - Pt's BPs low - Lisinopril stopped, last dose was on 06/06 - currently on cardizem and amiodarone. - cardiology recommended anticoagulation on d/c due to high [id number] score Pt will need snf on d/c due to weakness. (2) COPD exacerbation Status: Acute Plan: - Pt admitted with worsening SOB, productive cough, and congestion that has progressively worsened over the last 3 weeks. - Labs at admission noted WNC count to be WNL. Her Lactic acid was elevated at 5.4. - She was given Zosyn and Azithromycin IV in the ER and these were continued upon admission. - Pt had an elevated BNP of 4483 at admission. - CXR (06/05) -->Advanced chronic obstructive pulmonary disease Mild generalized interstitial vascular prominence which may represent early congestion. Minimal bilateral effusions. - Pt was given Lasix 20mg IV x 2 in the ER. - Pts D-dimer was elevated. CTA lungs (06/05) --> Negative for pulmonary embolus. Fairly extensive peribronchial thickening especially at the lung bases most characteristic of a bronchitis. Small bilateral pleural effusions. No pericardial effusion. Moderate to severe coronary artery calcifications. Moderate centrilobular emphysema. Treatment was initiated for copd exacerbation and bronchitis converted iv to po steroid taper and iv to po abx complete the course. cont nebs wean o2 walk test (3) CHF (congestive heart failure) Status: Acute Plan: - 2D echo (06/06/16): - Estimated EF 35-40% - Severe hypokinesis of the anteroseptal myocardium - Mild to moderate mitral regurgitation - Moderate tricuspid regurgitation - PA peak pressure 77mmHg - BNP was elevated over 4000 at admission cardiology feels chf is due to tachycardia. (4) Bronchitis Status: Acute Plan: - See above. (5) HTN (hypertension) Status: Chronic Plan: - Hold Lisinopril due to hypotension - Monitor (6) Elevated troponin Status: Acute Plan: - Flat pattern, 0.12-->0.14-->0.12 - No complaints of chest pain (7) Hyperlipidemia Status: Chronic (8) Tobacco use Status: Chronic Plan: - Counselled on tobacco cessation - Nicotine patch (9) Alcohol use Status: Chronic Plan: - Alcohol withdrawal precautions -wean librium. prn ativan (10) Chronic back pain Status: Chronic Plan: - Cont. home meds Ty Combs MD Jun 11, 2016 08:38
[2016-06-11] MEDS: SODIUM CHLORIDE 0.9% FLUSH 5 ML FLUSH FLUSH SCH ×2 (09:05→21:49)
[2016-06-11] MEDS: UMECLIDINIUM 62.5 MCG/VILANTEROL 25 MCG INHALER INH SCH (09:05)
[2016-06-11] MEDS: DILTIAZEM-CD 120 MG CAP ER PO SCH (09:06)
[2016-06-11] MEDS: CETIRIZINE HCL 10 MG TAB PO SCH (09:06)
[2016-06-11] MEDS: MEGESTROL ACETATE 40 MG TAB PO SCH ×2 (09:07→21:49)
[2016-06-11] MEDS: PRAVASTATIN SOD 40 MG TAB PO SCH (09:07)
[2016-06-11] MEDS: PANTOPRAZOLE SOD 20 MG DELAYED RELEASE TAB PO SCH (09:07)
[2016-06-11] MEDS: predniSONE 20 MG TAB PO SCH ×2 (09:07→21:50)
[2016-06-11] MEDS: AMIODARONE 200 MG TAB PO SCH (09:07)
[2016-06-11] MEDS: LEVOFLOXACIN 500 MG TAB PO SCH (09:07)
[2016-06-11] MEDS: NICOTINE 14 MG/24 HR PATCH TD SCH (09:08)
[2016-06-11] MEDS ORDERED: POTASSIUM CHLORIDE 20 MEQ PWD PACKET PO ONE (10:00)
[2016-06-11 10:24] LABS: BICARBONATE 29.2 MEQ/L (21.0-32.0); MAGNESIUM 1.7 MG/DL (1.5-2.5); POTASSIUM 4.1 MEQ/L (3.5-5.1)
[2016-06-11] MEDS: REMOVE OLD NICODERM (NICOTINE) PATCH TD SCH (21:00)
[2016-06-11] MEDS: ENOXAPARIN SODIUM 30 MG/0.3 ML SYRINGE SQ SCH (21:49)
[2016-06-12] VITALS (8 sets, daily range): BP systolic 103–155; BP diastolic 57–77; PULSE 80–92; RESP 18–20; TEMP 97.5–99; O2SAT 95–98
[2016-06-12] MEDS: fentaNYL 50 MCG/HR PATCH T-DERMAL SCH (02:42)
[2016-06-12] MEDS: RESP: ALBUTEROL 2.5 MG/IPRATROPIUM 0.5 MG NEB (SCH) NEB ×3 (08:00→19:30)
[2016-06-12] MEDS: PRAVASTATIN SOD 40 MG TAB PO SCH (08:57)
[2016-06-12] MEDS: LEVOFLOXACIN 500 MG TAB PO SCH (08:57)
[2016-06-12] MEDS: MEGESTROL ACETATE 40 MG TAB PO SCH ×2 (08:57→21:07)
[2016-06-12] MEDS: predniSONE 20 MG TAB PO SCH ×2 (08:57→21:07)
[2016-06-12] MEDS: AMIODARONE 200 MG TAB PO SCH (08:57)
[2016-06-12] MEDS: CETIRIZINE HCL 10 MG TAB PO SCH (08:57)
[2016-06-12] MEDS: DILTIAZEM-CD 120 MG CAP ER PO SCH (08:57)
[2016-06-12] MEDS: PANTOPRAZOLE SOD 20 MG DELAYED RELEASE TAB PO SCH (08:57)
[2016-06-12] MEDS: NICOTINE 14 MG/24 HR PATCH TD SCH (08:58)
[2016-06-12] MEDS: SODIUM CHLORIDE 0.9% FLUSH 5 ML FLUSH FLUSH SCH ×2 (08:58→21:08)
[2016-06-12] MEDS: UMECLIDINIUM 62.5 MCG/VILANTEROL 25 MCG INHALER INH SCH (08:58)
--- NOTE | 2016-06-12 09:21 | HHI.PR ---
Subjective Remarks breathing is better. she is eager to start rehab her son is present and updated. Objective Vitals heart reg lung improved air entry. few wheezes abd s/nt ext no edema Vital Signs Date Time Temp Pulse Resp B/P Pulse Ox O2 Delivery O2 Flow Rate FiO2 06/12/16 08:00 98.2 86 18 121/77 97 06/12/16 04:00 99.0 80 18 113/62 98 06/12/16 00:00 98.6 80 20 108/66 97 06/11/16 20:05 86 18 108/62 98 06/11/16 19:57 95 06/11/16 19:20 98 Nasal Cannula 2.00 06/11/16 16:30 98.1 83 18 118/58 98 06/11/16 16:05 98.1 83 16 118/58 97 06/11/16 12:04 98.5 87 16 93/55 95 06/11/16 06/11/16 06/12/16 15:00 23:00 07:00 Intake Total 362 ml 4 ml 500 ml Balance 362 ml 4 ml 500 ml Intake Oral 360 ml 500 ml IV Total 2 ml 4 ml # Voids 4 5 # Bowel Movements 1 0 Result Diagram: 06/10/16 0650 06/11/16 [address] Angiography 06/06/16 0000 Signed Impressions: Service Date/Time: June 01:30 - CONCLUSION: 1. Negative for pulmonary embolus. 2. Fairly extensive peribronchial thickening especially at the lung bases most characteristic of a bronchitis. 3. Small bilateral pleural effusions. No pericardial effusion. 4. Moderate to severe coronary artery calcifications. 5. Moderate centrilobular emphysema. Josh Almonte MD Chest X-Ray 06/05/162044 Signed Impressions: Service Date/Time: Sunday, June 05, 2016 21:31 - CONCLUSION: Advanced chronic obstructive pulmonary disease Mild generalized interstitial vascular prominence which may represent early congestion. Minimal bilateral effusions. Gilles Jim MD Procedures 2D echo (06/06/16): - Estimated EF 35-40% - Severe hypokinesis of the anteroseptal myocardium - Mild to moderate mitral regurgitation - Moderate tricuspid regurgitation - PA peak pressure 77mmHg A/P Problem List: (1) Atrial fibrillation with RVR Status: Acute Plan: - comgmt with Cardiology - Pt developed A. fib RVR with HR into the 160-180's on telemetry 06/07/16 - Pt denies any chest pain or palpitations -converted to sinus - Pt's BPs low - Lisinopril stopped, last dose was on 06/06 - currently on cardizem and amiodarone. - cardiology recommended anticoagulation on d/c due to high [id number] score start xarelto d/c to snf in AM. pt very weak on ambulation. and would benefit from continued medical management at snf. (2) COPD exacerbation Status: Acute Plan: - Pt admitted with worsening SOB, productive cough, and congestion that has progressively worsened over the last 3 weeks. - Labs at admission noted WNC count to be WNL. Her Lactic acid was elevated at 5.4. - She was given Zosyn and Azithromycin IV in the ER and these were continued upon admission. - Pt had an elevated BNP of 4483 at admission. - CXR (06/05) -->Advanced chronic obstructive pulmonary disease Mild generalized interstitial vascular prominence which may represent early congestion. Minimal bilateral effusions. - Pt was given Lasix 20mg IV x 2 in the ER. - Pts D-dimer was elevated. CTA lungs (06/05) --> Negative for pulmonary embolus. Fairly extensive peribronchial thickening especially at the lung bases most characteristic of a bronchitis. Small bilateral pleural effusions. No pericardial effusion. Moderate to severe coronary artery calcifications. Moderate centrilobular emphysema. Treatment was initiated for copd exacerbation and bronchitis converted iv to po steroid taper and iv to po abx complete the course. cont nebs wean o2 walk test noted (3) CHF (congestive heart failure) Status: Acute Plan: - 2D echo (06/06/16): - Estimated EF 35-40% - Severe hypokinesis of the anteroseptal myocardium - Mild to moderate mitral regurgitation - Moderate tricuspid regurgitation - PA peak pressure 77mmHg - BNP was elevated over 4000 at admission cardiology feels chf is due to tachycardia. will have her f/u outpt for cardiology and repeat echo. (4) Bronchitis Status: Acute Plan: - See above. (5) HTN (hypertension) Status: Chronic Plan: - Hold Lisinopril due to hypotension - Monitor (6) Elevated troponin Status: Acute Plan: - Flat pattern, 0.12-->0.14-->0.12 - No complaints of chest pain (7) Hyperlipidemia Status: Chronic (8) Tobacco use Status: Chronic Plan: - Counselled on tobacco cessation - Nicotine patch (9) Alcohol use Status: Chronic Plan: - Alcohol withdrawal precautions -wean librium. prn ativan (10) Chronic back pain Status: Chronic Plan: - Cont. home meds Ty Combs MD Jun 12, 2016 09:21
[2016-06-12] MEDS ORDERED: RIVAROXABAN 20 MG TAB PO SCH (21:00)
[2016-06-12] MEDS: REMOVE OLD NICODERM (NICOTINE) PATCH TD SCH (21:00)
[2016-06-13] VITALS: BP 89/53; PULSE 80; RESP 16; TEMP 97.4; O2SAT 98
[2016-06-13 02:16] VITALS: BP 97/57
[2016-06-13 04:00] VITALS: BP 104/56; PULSE 76; RESP 16; TEMP 97.3; O2SAT 97
[2016-06-13 08:00] VITALS: BP 97/62; PULSE 76; PULSE 78; PULSE 82; RESP 20; TEMP 98.6; O2SAT 96
[2016-06-13] MEDS: RESP: ALBUTEROL 2.5 MG/IPRATROPIUM 0.5 MG NEB (SCH) NEB (08:34)
[2016-06-13 08:38] VITALS: O2SAT 98
[2016-06-13] MEDS: MEGESTROL ACETATE 40 MG TAB PO SCH (08:52)
[2016-06-13] MEDS: PRAVASTATIN SOD 40 MG TAB PO SCH (08:52)
[2016-06-13] MEDS: AMIODARONE 200 MG TAB PO SCH (08:52)
[2016-06-13] MEDS: PANTOPRAZOLE SOD 20 MG DELAYED RELEASE TAB PO SCH (08:52)
[2016-06-13] MEDS: DILTIAZEM-CD 120 MG CAP ER PO SCH (08:52)
[2016-06-13] MEDS: LEVOFLOXACIN 500 MG TAB PO SCH (08:52)
[2016-06-13] MEDS: CETIRIZINE HCL 10 MG TAB PO SCH (08:52)
[2016-06-13] MEDS: predniSONE 20 MG TAB PO SCH (08:52)
[2016-06-13] MEDS: NICOTINE 14 MG/24 HR PATCH TD SCH (08:53)
[2016-06-13] MEDS: UMECLIDINIUM 62.5 MCG/VILANTEROL 25 MCG INHALER INH SCH (08:53)
[2016-06-13] MEDS: SODIUM CHLORIDE 0.9% FLUSH 5 ML FLUSH FLUSH SCH (08:56)
--- NOTE | 2016-06-13 09:04 | HHI.PR ---
Subjective Remarks wants snf. eating breakfast. weak and sob with minimal exertion Objective Vitals heart reg lung good air entry abd s/nt ext no edema Vital Signs Date Time Temp Pulse Resp B/P Pulse Ox O2 Delivery O2 Flow Rate FiO2 06/13/16 08:38 98 Nasal Cannula 1.00 06/13/16 08:00 98.6 78 20 97/62 96 06/13/16 04:00 97.3 76 16 104/56 97 06/13/16 02:16 97/57 06/13/16 00:00 97.4 80 16 89/53 98 06/12/16 20:00 98.3 88 18 103/57 97 06/12/16 19:30 98 Nasal Cannula 2.00 06/12/16 16:00 98.2 89 18 105/75 98 06/12/16 12:00 97.5 92 20 155/70 95 06/12/16 11:15 98 Nasal Cannula 2.00 06/12/16 06/12/16 06/13/16 15:00 23:00 07:00 Intake Total 480 ml 240 ml Output Total 550 ml Balance -70 ml 240 ml Intake Oral 480 ml 240 ml Output Urine Total 550 ml # Voids 3 # Bowel Movements 1 Result Diagram: 06/10/16 0650 06/11/16 [address] Angiography 06/06/16 0000 Signed Impressions: Service Date/Time: June 01:30 - CONCLUSION: 1. Negative for pulmonary embolus. 2. Fairly extensive peribronchial thickening especially at the lung bases most characteristic of a bronchitis. 3. Small bilateral pleural effusions. No pericardial effusion. 4. Moderate to severe coronary artery calcifications. 5. Moderate centrilobular emphysema. Josh Almonte MD Chest X-Ray 06/05/162044 Signed Impressions: Service Date/Time: Sunday, June 05, 2016 21:31 - CONCLUSION: Advanced chronic obstructive pulmonary disease Mild generalized interstitial vascular prominence which may represent early congestion. Minimal bilateral effusions. Gilles Jim MD Procedures 2D echo (06/06/16): - Estimated EF 35-40% - Severe hypokinesis of the anteroseptal myocardium - Mild to moderate mitral regurgitation - Moderate tricuspid regurgitation - PA peak pressure 77mmHg A/P Problem List: (1) Atrial fibrillation with RVR Status: Acute Plan: - comgmt with Cardiology - Pt developed A. fib RVR with HR into the 160-180's on telemetry 06/07/16 - Pt denies any chest pain or palpitations -converted to sinus - Pt's BPs low - Lisinopril stopped, last dose was on 06/06 - currently on cardizem and amiodarone. - cardiology recommended anticoagulation on d/c due to high [id number] score started xarelto d/c to snf i. pt very weak on ambulation. and would benefit from continued medical management at snf. (2) COPD exacerbation Status: Acute Plan: - Pt admitted with worsening SOB, productive cough, and congestion that has progressively worsened over the last 3 weeks. - Labs at admission noted WNC count to be WNL. Her Lactic acid was elevated at 5.4. - She was given Zosyn and Azithromycin IV in the ER and these were continued upon admission. - Pt had an elevated BNP of 4483 at admission. - CXR (06/05) -->Advanced chronic obstructive pulmonary disease Mild generalized interstitial vascular prominence which may represent early congestion. Minimal bilateral effusions. - Pt was given Lasix 20mg IV x 2 in the ER. - Pts D-dimer was elevated. CTA lungs (06/05) --> Negative for pulmonary embolus. Fairly extensive peribronchial thickening especially at the lung bases most characteristic of a bronchitis. Small bilateral pleural effusions. No pericardial effusion. Moderate to severe coronary artery calcifications. Moderate centrilobular emphysema. Treatment was initiated for copd exacerbation and bronchitis converted iv to po steroid taper and iv to po abx complete the course. cont nebs wean o2 walk test noted (3) CHF (congestive heart failure) Status: Acute Plan: - 2D echo (06/06/16): - Estimated EF 35-40% - Severe hypokinesis of the anteroseptal myocardium - Mild to moderate mitral regurgitation - Moderate tricuspid regurgitation - PA peak pressure 77mmHg - BNP was elevated over 4000 at admission cardiology feels chf is due to tachycardia. will have her f/u outpt for cardiology and repeat echo. (4) Bronchitis Status: Acute Plan: - See above. (5) HTN (hypertension) Status: Chronic Plan: - Hold Lisinopril due to hypotension - Monitor (6) Elevated troponin Status: Acute Plan: - Flat pattern, 0.12-->0.14-->0.12 - No complaints of chest pain (7) Hyperlipidemia Status: Chronic (8) Tobacco use Status: Chronic Plan: - Counselled on tobacco cessation - Nicotine patch (9) Alcohol use Status: Chronic Plan: - Alcohol withdrawal precautions -wean librium. prn ativan (10) Chronic back pain Status: Chronic Plan: - Cont. home meds Ty Combs MD Jun 13, 2016 09:04
[2016-06-13] MEDS ORDERED: LEVA500T PO (09:10)
[2016-06-13] MEDS ORDERED: MUCI600T PO (09:10)
[2016-06-13] MEDS ORDERED: XARE20TA PO (09:10)
[2016-06-13] MEDS ORDERED: MEGE40TA PO (09:10)
[2016-06-13] MEDS ORDERED: FENT50DI T-DERMAL (09:10)
[2016-06-13] MEDS ORDERED: CARD120C4 PO (09:10)
[2016-06-13] MEDS ORDERED: AMIO200T PO (09:10)
[2016-06-13] MEDS ORDERED: PRED20 PO (09:10)
[2016-06-13] MEDS ORDERED: IPRASOL NEB (09:10)
--- NOTE | 2016-06-13 09:10 | HHI.DCPOC ---
Discharge Care Plan Diagnosis: (1) Atrial fibrillation with RVR (2) CHF (congestive heart failure) (3) COPD exacerbation (4) Bronchitis (5) Hyperlipidemia (6) HTN (hypertension) (7) Chronic back pain Goals to Promote Your Health * To prevent worsening of your condition and complications * To maintain your health at the optimal level Directions to Meet Your Goals Take your medications as prescribed Follow your dietary instruction Follow activity as directed Keep your appointments as scheduled Take your immunizations and boosters as scheduled If your symptoms worsen call your PCP, if no PCP go to Urgent Care Center or Emergency Room Smoking is Dangerous to Your Health. Avoid second hand smoke Call the 24-hour hour crisis hotline for domestic abuse at Ty Combs MD Jun 13, 2016 09:10
--- NOTE | 2016-07-04 21:02 | HHI.DS ---
Discharge Summary Admission Date Jun 06, 2016 at 02:24 Discharge Date: Jun 13, 2016 Admitting Diagnosis exacerbation COPD; CHF; elevated troponin I (1) Atrial fibrillation with RVR Diagnosis: Principal (2) COPD exacerbation Diagnosis: Principal (3) CHF (congestive heart failure) Diagnosis: Principal (4) Bronchitis Diagnosis: Principal (5) HTN (hypertension) Diagnosis: Secondary (6) Elevated troponin Diagnosis: Secondary (7) Hyperlipidemia Diagnosis: Secondary (8) Tobacco use Diagnosis: Secondary (9) Alcohol use Diagnosis: Secondary (10) Chronic back pain Diagnosis: Secondary Procedures 2D echo (06/06/16): - Estimated EF 35-40% - Severe hypokinesis of the anteroseptal myocardium - Mild to moderate mitral regurgitation - Moderate tricuspid regurgitation - PA peak pressure 77mmHg Brief History Mrs. Casas is a pleasant 76 y/o WF with COPD, HTN, hyperlipidemia, tobacco use and regular alcohol use. She presented to the ED at [facility] via EMS transport from home on 06/05/16 for progressively worsening shortness of breath over the past 3 weeks which acutely worsened yesterday. Patient has been seen by her primary care physician for upper respiratory infection and COPD exacerbation around 3 months ago and states that she was on antibiotics and steroids. She states that the steroids helped her significantly but then she developed thrush and stopped taking the steroids and antibiotics. Patient states that her symptoms returned after stopping medications and have been progressively worsening. She denies any fevers but states that she has felt chilled. Pt has had a productive cough with yellow sputum. Patient denies any chest pain, LE edema, orthopnea or PND. Patient denies home oxygen use. Labs at admission noted WNC count to be WNL. Her Lactic acid was elevated at 5.4. She was given Zosyn and Azithromycin IV in the ER and these were continued upon admission. She was also noted to have elevated BNP of 4483 but CXR noted advanced chronic obstructive pulmonary disease and some mild generalized interstitial vascular prominence which may represent early congestion and minimal bilateral effusions. Pt was given Lasix 20mg IV in the ER. Pts D-dimer was elevated and a CTA was performed which was negative for pulmonary embolus, fairly extensive peribronchial thickening especially at the lung bases most characteristic of a bronchitis, small bilateral pleural effusions, no pericardial effusion, moderate to severe coronary artery calcifications, and moderate centrilobular emphysema. Hospital Course - Pt developed A. fib RVR with HR into the 160-180's on telemetry 06/07/16 - Pt denies any chest pain or palpitations-converted to sinus - Pt's BPs low - Lisinopril stopped, last dose was on 06/06 - currently on cardizem and amiodarone. - cardiology recommended anticoagulation on d/c due to high [id number] score started xarelto d/c to snf i. pt very weak on ambulation. and would benefit from continued medical management at snf. -- - Pt admitted with worsening SOB, productive cough, and congestion that has progressively worsened over the last 3 weeks. - Labs at admission noted WNC count to be WNL. Her Lactic acid was elevated at 5.4. - She was given Zosyn and Azithromycin IV in the ER and these were continued upon admission. - Pt had an elevated BNP of 4483 at admission. - CXR (06/05) -->Advanced chronic obstructive pulmonary disease Mild generalized interstitial vascular prominence which may represent early congestion. Minimal bilateral effusions. - Pt was given Lasix 20mg IV x 2 in the ER. - Pts D-dimer was elevated. CTA lungs (06/05) --> Negative for pulmonary embolus. Fairly extensive peribronchial thickening especially at the lung bases most characteristic of a bronchitis. Small bilateral pleural effusions. No pericardial effusion. Moderate to severe coronary artery calcifications. Moderate centrilobular emphysema. Treatment was initiated for copd exacerbation and bronchitis converted iv to po steroid taper and iv to po abx complete the course. cont nebs wean o2 ( - 2D echo (06/06/16): - Estimated EF 35-40% - Severe hypokinesis of the anteroseptal myocardium - Mild to moderate mitral regurgitation - Moderate tricuspid regurgitation - PA peak pressure 77mmHg - BNP was elevated over 4000 at admission cardiology feels chf is due to tachycardia. will have her f/u outpt for cardiology and repeat echo. ( Pt Condition on Discharge: Stable Discharge Disposition: Discharge to SNF Discharge Instructions DIET: Follow Instructions for: Heart Healthy Diet Activities you can perform: Regular-No Restrictions Follow up Referrals: Cardiology - [address] rory luna PCP Follow-up - [address] matt mccann SNF/DETENTION/ with [facility] New Medications: Guaifenesin ER 12 HR (Mucinex ER 12 HR) 600 Mg Xavier 600 MG PO BID Chest Congestion/Cough Days 7 Ref 0 TAB Amiodarone (Amiodarone) 200 Mg Tab 200 MG PO DAILY afib #30 Ref 3 TAB Ipratropium-Albuterol Neb (Duoneb) 0.5-2.5 Mg/3 Ml Neb 1 AMPULE NEB Q6HR WHILE AWAKE NEB copd Days 30 ML Megestrol (Megestrol) 40 Mg Tab 40 MG PO Q12HR appetite Days 14 TAB Continued Medications: Cetirizine (Zyrtec Allergy) 10 Mg Cap 10 MG PO DAILY Allergies Ref 0 CAP Lovastatin (Lovastatin) 40 Mg Tab 40 MG PO DAILY Cholesterol Management #30 Ref 0 TAB Umeclidinium-Vilanterol Inh (Anoro Ellipta Inh) 62.5-25 Mcg/Act Aero 1 PUFF INH DAILY COPD #1 Ref 0 INHALER Discontinued Medications: Lisinopril (Lisinopril) 10 Mg Tab 10 MG PO DAILY #30 Ref 0 TAB Ty Combs MD Jul 04, 2016 21:02
== END 2016-06-13 12:02 | DRG 190 ==
LOC: NEPC 17:52 → NEDA 06-06 02:24 → NEDH 06-06 06:56 → HIME 06-06 11:28 → N04B 06-09 17:57
PROVIDERS: ADMIT Hospitalist; ATTEND Hospitalist
DX: J44.0 Chronic obstructive pulmonary disease with (acute) lower respiratory infection (principal); J20.9 Acute bronchitis, unspecified; I50.21 Acute systolic (congestive) heart failure; I42.9 Cardiomyopathy, unspecified; I48.91 Unspecified atrial fibrillation; I08.1 Rheumatic disorders of both mitral and tricuspid valves; J44.1 Chronic obstructive pulmonary disease with (acute) exacerbation; R74.8 Abnormal levels of other serum enzymes; F17.200 Nicotine dependence, unspecified, uncomplicated; Z72.89 Other problems related to lifestyle; I10 Essential (primary) hypertension; D64.9 Anemia, unspecified; E78.5 Hyperlipidemia, unspecified; F32.9 Major depressive disorder, single episode, unspecified; F41.9 Anxiety disorder, unspecified; G89.29 Other chronic pain; M54.5 Low back pain; I65.29 Occlusion and stenosis of unspecified carotid artery; M19.90 Unspecified osteoarthritis, unspecified site; I73.9 Peripheral vascular disease, unspecified; M41.9 Scoliosis, unspecified; M81.0 Age-related osteoporosis without current pathological fracture; Z85.3 Personal history of malignant neoplasm of breast; Z85.42 Personal history of malignant neoplasm of other parts of uterus
CPT/HCPCS: 36600; 71010; 71275; 76937; 80048; 80053; 80162; 82550; 82552; 82607; 82805; 83605; 83735; 83880; 84439; 84443; 84484; 85025; 85379; 85610; 85730; 87040; 87641; 87804; 93005; 93306; 94150; 94640; 94664; 94667; 94668; 96365; 96366; 96367; 96375; J0282; J0456; J1160; J1650; J1940; J2543; J2930; J7050; J7060; J7512; Q9967

== ENCOUNTER 2016-06-17 22:06 | Inpatient (IN) | payer MEDICARE ==
[~2016-06-17] VITALS: Ht 157.5 cm; Wt 41.9 kg
[~2016-06-17 22:06] MED LIST changes: +AMIO200T PO; -AMLO5TAB96 PO; +CARD120C4 PO; -DONNTAB12 PO; +FENT50DI T-DERMAL; +IPRASOL NEB; +LEVA500T PO; -LORT5TAB PO; +LOVA40TA PO; +MEGE40TA PO; -MEVA40TA6 PO; +MUCI600T PO; -NAPR-697 PO; -OMEP20CA5 PO; +OMEP20TA PO; +PRED20 PO; -SUCR1TAB6 PO; +UMEC1AER INH; +XARE20TA PO; +ZYRT10CA PO; -ZYRT10TA12 PO
[2016-06-17 22:21] VITALS: BP 117/53; PULSE 90; RESP 19; TEMP 98.7; O2SAT 83
[2016-06-17] MEDS ORDERED: SODIUM CHLORIDE 0.9% FLUSH 5 ML FLUSH IVF PRN (22:30)
--- NOTE | 2016-06-17 22:43 | RADRPT ---
EXAM DATE/TIME: 06/17/2016 22:37 [facility] COMPARISON: CHEST SINGLE AP, June 09, 2016, 8:27. INDICATIONS : Weakness. Short of breath. MEDICAL HISTORY : Chronic obstructive pulmonary disease. SURGICAL HISTORY : None. ENCOUNTER: Subsequent ACUITY: 1 day PAIN SCORE: Non-responsive. LOCATION: Bilateral chest FINDINGS: A single view of the chest demonstrates a small infiltrate in the right costophrenic angle. Otherwise the lungs are clear and hyperaerated. Heart size is within normal limits. There are no pleural effus ions. The bony structures are grossly stable.. CONCLUSION: Small infiltrate right costophrenic angle. Asaf Barriga MD on June 17, 2016 at 22:40 Board Certified Radiologist. This report was verified electronically.
[2016-06-17 22:44] LABS: AUTOMATED NEUTROPHIL # 23.4 TH/MM3 (1.8-7.7); BASOPHIL # 0.1 TH/MM3 (0-0.2); BASOPHIL % 0.4 % (0.0-2.0); LYMPH % 0.9 % (9.0-44.0); LYMPHOCYTE # 0.2 TH/MM3 (1.0-4.8); MEAN CELL VOLUME 103.9 FL (80.0-100.0); MEAN CORPUSCULAR HEMOGLOBIN 35.7 PG (27.0-34.0); MEAN CORPUSCULAR HGB CONC 34.4 % (32.0-36.0); MONO % 4.8 % (0.0-8.0); NEUT % 93.9 % (16.0-70.0); PLATELET COUNT 153 TH/MM3 (150-450); RED BLOOD COUNT 1.83 MIL/MM3 (4.00-5.30); RED CELL DISTRIBUTION WIDTH 14.1 % (11.6-17.2); WHITE BLOOD COUNT 24.9 TH/MM3 (4.0-11.0)
[2016-06-17 22:45] LABS: HEMO FLAGS AUTO DIFF
[2016-06-17 22:58] LABS: APTT (PATIENT) 25.6 SEC (24.3-30.1); PROTHROMBIN TIME - PATIENT 11.6 SEC (9.8-11.6)
--- NOTE | 2016-06-17 23:06 | PD ---
HPI Chief Complaint: Abnormal Results Time Seen by Provider: 22:23 Travel History International Travel<30 days: No Contact w/Intl Traveler<30days: No Traveled to known affect area: No History of Present Illness HPI 76-year-old female brought in by [facility] for evaluation of low hemoglobin. The patient has history of CHF, COPD. She is on Xarelto. She is complaining of left lower quadrant abdominal pain. Pain is moderate, cramping, worse with movement and palpation. She denies nausea or vomiting. She denies melena or hematochezia. She is complaining of generalized weakness. No chest pain or dyspnea. PFSH Past Medical History Arthritis: Yes Autoimmune Disease: No Anxiety: Yes Depression: Yes Heart Rhythm Problems: No Cancer: Yes (BREAST) Cardiovascular Problems: Yes High Cholesterol: Yes Chemotherapy: Yes (RIGHT BREAST CA/MASTECTOMY) Chest Pain: No Congestive Heart Failure: No COPD: Yes Diabetes: No Diminished Hearing: No GERD: No Glaucoma: No Hepatitis: Yes Hiatal Hernia: No Hypertension: Yes Immune Disorder: No Kidney Stones: No Musculoskeletal: Yes (; OSTEOPOROSIS; SCOLIOSIS.) Neurologic: No Psychiatric: Yes Respiratory: Yes (COPD/LEFT LOBECTOMY) Immunizations Current: No Migraines: No Radiation Therapy: No Renal Failure: No Seizures: No Sleep Apnea: No Thyroid Disease: No Ulcer: Yes Past Surgical History Abdominal Surgery: Yes (APPY, SPLEENECTOMY) Appendectomy: Yes Cardiac Surgery: No Gynecologic Surgery: Yes (HYSTERECTOMY) Hysterectomy: Yes Oral Surgery: Yes (TONSILLECTOMY) Pacemaker: No Thoracic Surgery: Yes (LUMPECTOMY RT BREAST; MASTECTOMY RT BREAST) Tonsillectomy: Yes Other Surgery: Yes Social History Alcohol Use: No Tobacco Use: No Substance Use: No Allergies-Medications (Allergen,Severity, Reaction): Coded Allergies: Morphine (Verified Allergy, Severe, THRASHING, 06/05/16) Lisinopril (Verified Allergy, Intermediate, VOMITING, 06/05/16) Reported Meds & Prescriptions Reported Meds & Active Scripts Active Mucinex ER 12 HR (Guaifenesin) 600 Mg Xavier 600 Mg PO BID 7 Days Levaquin (Levofloxacin) 500 Mg Tab 500 Mg PO DAILY 2 Days Xarelto (Rivaroxaban) 20 Mg Tab 20 Mg PO DAILY Prednisone 20 Mg Tab 20 Mg PO DIRECTED 10 Days 20mg po bid x 3 days, 10mg po bid x 3 days, 10mg po daily x 4 days Megestrol (Megestrol Acetate) 40 Mg Tab 40 Mg PO Q12HR 14 Days Duoneb (Ipratropium-Albuterol Neb) 0.5-2.5 Mg/3 Ml Neb 1 Ampule NEB Q6HR WHILE AWAKE NEB 30 Days Cardizem CD 24 HR (Diltiazem CD 24 HR) 120 Mg Caper 120 Mg PO DAILY Amiodarone (Amiodarone HCl) 200 Mg Tab 200 Mg PO DAILY Fentanyl Patch 72 HR (Fentanyl) 50 Mcg/Hr Patch 50 Mcg T-DERMAL Q72H Remove old patch when new one placed. Reported Omeprazole 20 Mg Tab 20 Mg PO DAILY Lovastatin 40 Mg Tab 40 Mg PO DAILY Anoro Ellipta Inh (Umeclidinium/Vilanterol) 62.5-25 Mcg/Act Aero 1 Puff INH DAILY Zyrtec Allergy (Cetirizine HCl) 10 Mg Cap 10 Mg PO DAILY Review of Systems Except as stated in HPI: all other systems reviewed are Neg Physical Exam Narrative GENERAL: Well-developed, well-nourished, awake, alert, elderly-appearing female , comfortable, no acute distress. SKIN: Warm and dry. Diffuse pallor. Ecchymosis over lateral left hip/flank. Stage I sacral decubitus ulcer. HEAD: Atraumatic. Normocephalic. EYES: Pupils equal and round. No scleral icterus. No injection or drainage. ENT: Mucous membranes pink and moist. NECK: Trachea midline. No JVD. CARDIOVASCULAR: Regular rate and rhythm. No murmur appreciated. RESPIRATORY: No accessory muscle use. Clear to auscultation. Breath sounds equal bilaterally. GASTROINTESTINAL: Abdomen soft, non-tender, nondistended. RECTUM: No masses, no fissures, no hemorrhoids, heme positive brown stool. MUSCULOSKELETAL: No obvious deformities. No clubbing. No cyanosis. No edema. NEUROLOGICAL: Awake and alert. No obvious cranial nerve deficits. Motor grossly within normal limits. Normal speech. PSYCHIATRIC: Appropriate mood and affect; insight and judgment normal. Data Data Last Documented VS Vital Signs Date Time Temp Pulse Resp B/P Pulse Ox O2 Delivery O2 Flow Rate FiO2 06/18/16 01:11 97.9 77 18 98/52 97 Nasal Cannula 2 Orders Complete Blood Count With Diff (06/17/16:25) Comprehensive Metabolic Panel (06/17/16:25) Prothrombin Time / Inr (Pt) (06/17/16:25) Act Partial Throm Time (Ptt) (06/17/16:) Iv Access Insert/Monitor (06/17/16:) Ecg Monitoring (06/17/16:) Oximetry (06/17/16:) Sodium Chloride 0.9% Flush (Ns Flush) (06/17/16 22:30) Electrocardiogram (06/17/16:) B-Type Natriuretic Peptide (06/17/16:) Ckmb (Isoenzyme) Profile (06/17/16:) Troponin I (06/17/16:) Chest, Single Ap (06/17/16:) Type And Screen (06/17/16:) Blood Culture (06/17/16 23:03) Red Blood Cells (Rbc) (06/17/16 23:06) Blood Product Administration .UPON TRANSFUSION (06/17/16 23:06) Sodium Chlor 0.9% 250 Ml Inj (Ns 250 Ml (06/17/16 23:15) Vancomycin Inj (Vancomycin Inj) (06/17/16 23:15) Piperacil-Tazo 3.375 Gm Premix (Zosyn 3. (06/17/16 23:15) CKMB (06/17/16 22:27) CKMB% (06/17/16 22:27) Ct Abd/Pel W/O Iv Contrast (06/18/16 ) Labs Laboratory Tests Test 06/17/16 06/17/16 22:27 23:18 White Blood Count 24.9 TH/MM3 Red Blood Count 1.83 MIL/MM3 Hemoglobin 6.5 GM/DL Hematocrit 19.0 % Mean Corpuscular Volume 103.9 FL Mean Corpuscular Hemoglobin 35.7 PG Mean Corpuscular Hemoglobin 34.4 % Concent Red Cell Distribution Width 14.1 % Platelet Count 153 TH/MM3 Mean Platelet Volume 8.4 FL Neutrophils (%) (Auto) 93.9 % Lymphocytes (%) (Auto) 0.9 % Monocytes (%) (Auto) 4.8 % Eosinophils (%) (Auto) 0.0 % Basophils (%) (Auto) 0.4 % Neutrophils # (Auto) 23.4 TH/MM3 Lymphocytes # (Auto) 0.2 TH/MM3 Monocytes # (Auto) 1.2 TH/MM3 Eosinophils # (Auto) 0.0 TH/MM3 Basophils # (Auto) 0.1 TH/MM3 CBC Comment AUTO DIFF Differential Comment AUTO DIFF CONFIRMED Toxic Granulation 1+ Platelet Estimate NORMAL Platelet Morphology Comment NORMAL Prothrombin Time 11.6 SEC Prothromb Time International 1.0 RATIO Ratio Activated Partial 25.6 SEC Thromboplast Time B-Type Natriuretic Peptide 166 PG/ML Sodium Level 142 MEQ/L Potassium Level 4.1 MEQ/L Chloride Level 103 MEQ/L Carbon Dioxide Level 28.7 MEQ/L Anion Gap 10 MEQ/L Blood Urea Nitrogen 72 MG/DL Creatinine 2.05 MG/DL Estimat Glomerular Filtration 24 ML/MIN Rate Random Glucose 158 MG/DL Calcium Level 8.4 MG/DL Total Bilirubin 0.7 MG/DL Aspartate Amino Transf 52 U/L (AST/SGOT) Alanine Aminotransferase 31 U/L (ALT/SGPT) Alkaline Phosphatase 49 U/L Total Creatine Kinase 718 U/L Creatine Kinase MB 1.9 NG/ML Creatine Kinase MB % 0.3 % Troponin I 0.11 NG/ML Total Protein 5.4 GM/DL Albumin 2.7 GM/DL Blood Type A POSITIVE Antibody Screen NEGATIVE Crossmatch Leukocyte-Reduced Red Blood Cells Blood Bank Comment MDM Medical Decision Making Medical Screen Exam Complete: Yes Emergency Medical Condition: Yes Medical Record Reviewed: Yes Differential Diagnosis GI bleed, anemia, colitis, diverticulitis, cancer Narrative Course Vital signs show heart rate 94, blood pressure 136/86, pulse ox 99% on 4 L nasal cannula, oral temp of 98.7F. CBC shows WBCs 24.9, hemoglobin 6.5, hematocrit 19, platelets 153, neutrophils 93.9%. CMP is remarkable for BUN 72, creatinine 2.05, GFR 24, otherwise unremarkable. Troponin is 0.11. BNP is 166. Chest x-ray: Small infiltrate right costophrenic angle. Given above CBC findings with abdominal tenderness, the patient likely has an intra-abdominal source for infection. She was started on vancomycin and Zosyn empirically. She was also consented for and transfused 2 units of PRBCs. She takes Xarelto. CT abdomen pelvis: CONCLUSION: 1. 8 x 5 cm left-sided rectus sheath hematoma. 2. Punctate calcific densities in the kidneys likely representing vascular calcifications. 3. Colonic diverticulosis but no evidence of acute diverticulitis. Case discussed with on-call [facility] physician Dr. Richard. The patient will be admitted to their service under Dr. Lopez to the ICU. The patient was made aware of all findings and plan for admission. Critical Care Narrative Aggregate critical care time was 35 minutes. Time to perform other separately billable procedures was not included in the critical care time. My time did not include minutes spent treating any other patients simultaneously or on activities that did not directly contribute to the patient's treatment. The services I provided to this patient were to treat and/or prevent clinically significant deterioration that could result in: , permanent disability, worsening clinical condition I provided critical care services requiring my management, as noted below: Chart data review, documentation time, medication orders and management, vital sign assessments/reviewing monitor data, ordering and reviewing lab tests, ordering and interpreting/reviewing x-rays and diagnostic studies, care of the patient and discussion of the patient with the admitting physicians. Diagnosis Primary Impression: Anemia Qualified Code: D62 - Acute posthemorrhagic anemia Additional Impressions: Abdominal wall hematoma Qualified Code: S30.1XXA - Abdominal wall hematoma, initial encounter GI bleed Qualified Code: K92.2 - Gastrointestinal hemorrhage, unspecified gastrointestinal hemorrhage type Admitting Information Admitting Physician Requests: Admit Kobi Harris MD Jun 17, 2016 23:06
[2016-06-17] MEDS ORDERED: VANCOMYCIN INJ 1,000 MG in SODIUM CHLOR 0.9% 250 ML INJ 250 ML IV ONE (23:15)
[2016-06-17] MEDS ORDERED: PIPERACIL-TAZO 3.375 GM PREMIX 50 ML IV ONE (23:15)
[2016-06-17] MEDS ORDERED: SODIUM CHLOR 0.9% 250 ML INJ 250 ML IV ONE (23:15)
[2016-06-17 23:32] VITALS: BP 136/86; PULSE 94; RESP 18; O2SAT 99
[2016-06-17 23:53] LABS: PLATELET ESTIMATE SMEAR NORMAL (NORMAL); PLATELET MORPHOLOGY NORMAL (NORMAL); SCAN/DIFF AUTO DIFF CONFIRMED; TOXIC GRANULATION 1+ (NORMAL)
[2016-06-17 23:54] LABS: ALKALINE PHOSPHATASE 49 U/L (45-117); ALT (GPT) 31 U/L (10-53); ANION GAP 10 MEQ/L (5-15); AST (GOT) 52 U/L (15-37); BICARBONATE 28.7 MEQ/L (21.0-32.0); BLOOD UREA NITROGEN 72 MG/DL (7-18); CHLORIDE 103 MEQ/L (98-107); CREATINE KINASE 718 U/L (26-192); GLOMERULAR FILTRATION RATE 24 ML/MIN (>89); POTASSIUM 4.1 MEQ/L (3.5-5.1); SODIUM (NA) 142 MEQ/L (136-145); TOTAL BILIRUBIN ADULT 0.7 MG/DL (0.2-1.0)
[2016-06-18] VITALS (21 sets, daily range): BP systolic 89–116; BP diastolic 52–66; PULSE 71–88; RESP 12–22; TEMP 97.9–99.6; O2SAT 92–99
[2016-06-18 00:06] LABS: CKMB 1.9 NG/ML (0.5-3.6)
--- NOTE | 2016-06-18 01:21 | RADRPT ---
EXAM DATE/TIME: 06/18/2016 00:43 [place] COMPARISON: No previous studies available for comparison. INDICATIONS : left lower abdomen pain. ORAL CONTRAST: No oral contrast ingested. RADIATION DOSE: 4.72 CTDIvol (mGy) MEDICAL HISTORY : Cardiovascular disease. Hypertension. Chronic obstructive pulmonary disease.Breast cancer SURGICAL HISTORY : Appendectomy. Hysterectomy.Nephrectomy, left.Mastectomy ENCOUNTER: Initial ACUITY: 1 day PAIN SCALE: 2/10 LOCATION: Left lower quadrant TECHNIQUE: Volumetric scanning of the abdomen and pelvis was performed. Using automated exposure control and ad justment of the mA and/or kV according to patient size, radiation dose was kept as low as reasonably achievable to obtain optimal diagnostic quality images. FINDINGS: LOWER LUNGS: Bilateral lower lobe interstitial opacity with bronchiectasis, ground glass opacity and mild honeycom corey indicating chronic lung disease. LIVER: 1.4 cm rounded hypodensity in the inferior aspect of the right lobe of the liver. 1.3 cm rounded hypo density in the inferior right lobe of the liver. Findings likely represent cysts or hemangiomas. Live r otherwise within normal limits. Gallbladder within normal limits. SPLEEN: Spleen is very small. PANCREAS: Within normal limits. KIDNEYS: Multiple punctate and linear calcific densities in the renal mabel bilaterally. Some of these clearly represent arterial calcification. Others are indeterminate and may represent arterial calcification o r punctate calculi in the collecting systems. No evidence of hydronephrosis. Kidneys otherwise within normal limits. No ureteral calculi identified. ADRENAL GLANDS: Within normal limits. VASCULAR: Diffuse aortoiliac calcification. Aortic diameter within normal limits. BOWEL/MESENTERY: No evidence of bowel dilatation. Numerous colonic diverticula. No evidence of acute diverticulitis. L ikely appendix is seen and is within normal limits. No free air or free fluid. ABDOMINAL WALL: There is rounded heterogeneous hyperdensity in the left rectus abdominous muscle indicating rectus sh eath hematoma. It measures 8.7 x 5.4 cm in diameter. RETROPERITONEUM: There is no lymphadenopathy. BLADDER: No wall thickening or mass. REPRODUCTIVE: Within normal limits. INGUINAL: There is no lymphadenopathy or hernia. MUSCULOSKELETAL: Within normal limits for patient age. CONCLUSION: 1. 8 x 5 cm left-sided rectus sheath hematoma. 2. Punctate calcific densities in the kidneys likely representing vascular calcifications. 3. Colonic diverticulosis but no evidence of acute diverticulitis. Jesse Hoff MD on June 18, 2016 at 1:11 Board Certified Radiologist. This report was verified electronically.
[2016-06-18] MEDS ORDERED: SODIUM CHLORIDE 0.9% FLUSH 5 ML FLUSH IVF PRN (01:45)
[2016-06-18] MEDS ORDERED: CHLORHEXIDINE GLUCONATE 2 % 1 PACK (2 CLOTHS)(extra cloths) TOP PRN (03:30)
[2016-06-18] MEDS: CHLORHEXIDINE GLUCONATE 2 % 1 PACK (2 CLOTHS)(taper/protocol) TOP SCH (04:00)
[2016-06-18 08:03] LABS: AUTOMATED NEUTROPHIL # 21.6 TH/MM3 (1.8-7.7); BASOPHIL # 0.1 TH/MM3 (0-0.2); BASOPHIL % 0.3 % (0.0-2.0); HEMATOCRIT 28.6 % (35.0-46.0); HEMO FLAGS DIFF FINAL; LYMPH % 1.7 % (9.0-44.0); LYMPHOCYTE # 0.4 TH/MM3 (1.0-4.8); MEAN CELL VOLUME 93.4 FL (80.0-100.0); MEAN CORPUSCULAR HEMOGLOBIN 32.5 PG (27.0-34.0); MEAN CORPUSCULAR HGB CONC 34.8 % (32.0-36.0); MONO % 3.2 % (0.0-8.0); NEUT % 94.8 % (16.0-70.0); PLATELET COUNT 120 TH/MM3 (150-450); RED BLOOD COUNT 3.06 MIL/MM3 (4.00-5.30); RED CELL DISTRIBUTION WIDTH 19.1 % (11.6-17.2); WHITE BLOOD COUNT 22.8 TH/MM3 (4.0-11.0)
[2016-06-18] MEDS: CETIRIZINE HCL 10 MG TAB PO SCH (09:00)
[2016-06-18] MEDS: PANTOPRAZOLE SOD 20 MG DELAYED RELEASE TAB PO SCH (09:00)
[2016-06-18] MEDS ORDERED: fentaNYL 50 MCG/HR PATCH T-DERMAL SCH (09:00)
[2016-06-18] MEDS: MEGESTROL ACETATE 40 MG TAB PO SCH ×2 (09:00→20:59)
[2016-06-18] MEDS: AMIODARONE 200 MG TAB PO SCH (09:00)
[2016-06-18] MEDS: fentaNYL 50 MCG/HR PATCH T-DERMAL SCH (09:00)
[2016-06-18] MEDS: UMECLIDINIUM 62.5 MCG/VILANTEROL 25 MCG INHALER INH SCH (09:00)
--- NOTE | 2016-06-18 09:12 | HHI.HP ---
HPI [facility] Primary Care Physician Colleen Morales MD Admission Diagnosis anemia, abdominal wall hematoma, GI bleed Chief Complaint: SOB Travel History International Travel<30 Days: No Contact w/Intl Traveler <30 Da: No Traveled to Known Affected Are: No History of Present Illness Mrs. Casas is a pleasant 76 y/o WF with COPD, HTN, atrial fibrillation, hyperlipidemia, tobacco use and regular alcohol use. She was just discharged from [facility] on 06/13/16 after an admission for COPD exacerbation, CHF and atrial fibrillation. She was treated for her COPD exacerbation with antibiotics and steroids. During that admission she developed atrial fibrillation with RVR and was treated with Cardizem and Amiodarone with return to sinus rhythm. Pt was seen by Cardiology and was recommended anticoagulation on d/c due to high [id number] score and she was started on Xarelto. Pt was brought back to the ED at [facility] on 06/17/16 for anemia. She complained of left lower quadrant abdominal pain, worse with movement and palpation and some shortness of breath. She denies any noted melena or hematochezia. Her labs at admission noted Hgb 6.5/ Hct 19.0. Prior to his previous discharge her last labs on 06/10/16 noted Hgb 11.4. Pt was transfused with 2 units PRBCs and repeat labs this morning noted an improvement with a Hgb 9.9/Hct 28.6. Pt had a CT abd/pelvis which revealed an 8 x 5cm left sided rectus sheath hematoma. Her renal function is increased with Cr 2.05/BUN 71, GFR 24. Prior labs on 06/11/16 noted Cr 1.01/BUN 28, GFR 53. Review of Systems Constitutional: DENIES: Fever, Chills, Change in appetite Ears, nose, mouth, throat: DENIES: Hearing loss Respiratory: COMPLAINS OF: Shortness of breath, DENIES: Cough Cardiovascular: DENIES: Chest pain, Palpitations Gastrointestinal: COMPLAINS OF: Abdominal pain, Diarrhea, DENIES: Black stools , Bloody stools, BRB per rectum, Nausea, Vomiting Genitourinary: DENIES: Urinary frequency, Urgency, Hematuria Musculoskeletal: DENIES: Back pain, Neck pain Integumentary: DENIES: Rash Neurologic: DENIES: Headache Psychiatric: DENIES: Confusion Past Family Social History Past Medical History COPD/chronic bronchitis A. fib, paroxysmal HTN Hyperlipidemia Depression/Anxiety Chronic low back pain Carotid artery stenosis Nicotine dependence Osteoarthritis Osteopenia PVD Hx of breast cancer s/p lumpectomy Hx of uterine cancer s/p JOSH Past Surgical History Appendectomy Right breast lumpectomy in 1996 Splenectomy in 1963 JOSH with BSO for uterine cancer in 1972 Excision of ganglion cyst to left wrist in 1979 Reported Medications Mucinex ER 12 HR 600 Mg PO BID Xarelto (Rivaroxaban) 20 Mg Tab 20 Mg PO DAILY Prednisone 20 Mg Tab 20 Mg PO DIRECTED 10 Days 20mg po bid x 3 days, 10mg po bid x 3 days, 10mg po daily x 4 days Megestrol 40 Mg PO Q12HR Duoneb Q6HR WHILE AWAKE NEB Cardizem CD 24 HR 120 Mg PO DAILY Amiodarone 200 Mg PO DAILY Fentanyl Patch 50 Mcg T-DERMAL Q72H Omeprazole 20 Mg PO DAILY Lovastatin 40 Mg PO DAILY Anoro Ellipta Inh 62.5-25 Mcg/Act Aero 1 Puff INH DAILY Zyrtec Allergy 10 Mg PO DAILY Allergies: Coded Allergies: Morphine (Verified Allergy, Severe, THRASHING, 06/05/16) Lisinopril (Verified Allergy, Intermediate, VOMITING, 06/05/16) Family History Mother with hx of breast cancer and gastric cancer, at age 64 Father with hx of prostate cancer, at age 84 Social History (+)Alcohol use, drinks 3-4 beers per night (+)Tobacco use Denies any hx of illicit drug use Pt is currently Physical Exam Vital Signs Vital Signs Date Time Temp Pulse Resp B/P Pulse Ox O2 Delivery O2 Flow Rate FiO2 06/18/16 06:00 74 06/18/16 04:00 86 06/18/16 04:00 98.6 88 15 103/56 97 06/18/16 04:00 98.6 86 17 103/56 96 06/18/16 03:45 99.6 83 12 108/58 98 06/18/16 02:49 98.0 83 20 89/53 97 06/18/16 01:38 76 18 97/61 99 Nasal Cannula 2 06/18/16 01:11 97.9 77 18 98/52 97 Nasal Cannula 2 06/18/16 01:11 97 Nasal Cannula 2.00 06/17/16 23:32 94 18 136/86 99 Room Air 06/17/16 23:32 136/86 06/17/16 22:26 84 Nasal Cannula 4 06/17/16 22:21 98.7 90 19 117/53 83 Physical Exam GENERAL: This is a well-nourished, well-developed patient, in no apparent distress. HEENT: Atraumatic. Normocephalic. No temporal or scalp tenderness. No scleral icterus. Airway patent. NECK: Trachea midline, supple, nontender. CARDIO: Regular RESP: Good air movement bilaterally. ABD: +BS, soft, nondistended, mild swelling and tenderness in the left mid abdomen. EXT: Extremities without clubbing, cyanosis, or edema. NEURO: Awake and alert. Motor and sensory grossly within normal limits. Normal speech. Laboratory Laboratory Tests Test 06/17/16 06/17/16 06/18/16 22:27 23:18 07:48 White Blood Count 24.9 22.8 Red Blood Count 1.83 3.06 Hemoglobin 6.5 9.9 Hematocrit 19.0 28.6 Mean Corpuscular Volume 103.9 93.4 Mean Corpuscular Hemoglobin 35.7 32.5 Mean Corpuscular Hemoglobin 34.4 34.8 Concent Red Cell Distribution Width 14.1 19.1 Platelet Count 153 120 Mean Platelet Volume 8.4 8.2 Neutrophils (%) (Auto) 93.9 94.8 Lymphocytes (%) (Auto) 0.9 1.7 Monocytes (%) (Auto) 4.8 3.2 Eosinophils (%) (Auto) 0.0 0.0 Basophils (%) (Auto) 0.4 0.3 Neutrophils # (Auto) 23.4 21.6 Lymphocytes # (Auto) 0.2 0.4 Monocytes # (Auto) 1.2 0.7 Eosinophils # (Auto) 0.0 0.0 Basophils # (Auto) 0.1 0.1 CBC Comment AUTO DIFF DIFF FINAL Differential Comment AUTO DIFF CONFIRMED Toxic Granulation 1+ Platelet Estimate NORMAL Platelet Morphology Comment NORMAL Prothrombin Time 11.6 Prothromb Time International 1.0 Ratio Activated Partial 25.6 Thromboplast Time B-Type Natriuretic Peptide 166 Sodium Level 142 Potassium Level 4.1 Chloride Level 103 Carbon Dioxide Level 28.7 Anion Gap 10 Blood Urea Nitrogen 72 Creatinine 2.05 Estimat Glomerular Filtration 24 Rate Random Glucose 158 Calcium Level 8.4 Total Bilirubin 0.7 Aspartate Amino Transf 52 (AST/SGOT) Alanine Aminotransferase 31 (ALT/SGPT) Alkaline Phosphatase 49 Total Creatine Kinase 718 Creatine Kinase MB 1.9 Creatine Kinase MB % 0.3 Troponin I 0.11 Total Protein 5.4 Albumin 2.7 Blood Type A POSITIVE Antibody Screen NEGATIVE Crossmatch Leukocyte-Reduced Red Blood Cells Blood Bank Comment Date/Time Procedure Status Source Growth 06/17/16 22:15 Aerobic Blood Culture Received Blood Peripheral Pending 06/17/16 22:15 Anaerobic Blood Culture Received Blood Peripheral Pending Result Diagram: 06/18/16 0748 06/17/[address] Abd/pelvis (06/18/16) - 8 x 5cm left sided rectus sheath hematoma - Punctate calcific densities in the kidneys likely representing vascular calcifications - Colonic diverticulosis but no evidence of acute diverticulitis. Septic Shock Reassessment Heart: Regular rate and rhythm Lungs: Clear Skin: Warm Assessment and Plan Problem List: (1) Anemia Status: Acute Plan: - Pt admitted with an acute drop in here H/H to Hgb 6.5/Hct 19.0. - Prior to his previous discharge her last labs on 06/10/16 noted Hgb 11.4. - Pt was transfused with 2 units PRBCs and repeat labs this morning noted an improvement with a Hgb 9.9/Hct 28.6. - Pt denies any active GIB and no noted hematuria. - Pt had a CT abd/pelvis which revealed an 8 x 5cm left sided rectus sheath hematoma. - Xarelto has been stopped - Monitor H/H closely - Monitor clinical status and for any evidence of further bleeding. - IVF - Supportive care - DVT prophylaxis with SCDs (2) Abdominal wall hematoma Status: Acute Plan: - See above. (3) COPD (chronic obstructive pulmonary disease) Status: Chronic Plan: - Pt recently admitted with a COPD exacerbation/bronchitis. - She was treated with Solumedrol, Duonebs and antibiotics. - Pt ws discharged to rehab on a taper of prednisone, duonebs and Levaquin x 2 days. - Pt was noted to have leukocytosis at admission, this may be related to the steroids. - CXR at admission noted a possible small infiltrate at the right costophrenic angle but pt feels that she has been symptomatically improving since her last hospitalization. She was feeling somewhat more SOB prior to this admission which was likely due to her anemia. This has improved with her blood transfusion. - Cont. Duonebs Q6H WA (4) Paroxysmal atrial fibrillation with rapid ventricular response Status: Resolved Plan: - Pt had previous paroxysmal atrial fibrillation with RVR during her last admission but converted to NSR with Amio and Cardizem - She was continued on Amiodarone and Cardizem at discharge. - We will resume her Amiodarone at this time. - Her BP has been somewhat low so we will hold the Cardizem. Add back as the BP allows. - Telemetry - Hold Xarelto (5) HTN (hypertension) Status: Chronic Plan: - BP running low - Monitor (6) Hyperlipidemia Status: Chronic Plan: - Cont. home meds (7) Tobacco use Status: Chronic Plan: - Tobacco cessation - Will add on Nicotine patch should the pt require this. (8) Alcohol use Status: Chronic Plan: - No alcohol since previous admission earlier this month. Assessment and Plan Patient examined. Assessment and plan formulated with Saritha Marie PA-C. I agree with the above. Physician Certification 2 Midnight Certification Type: Admission for Inpatient Services Order for Inpatient Services The services are ordered in accordance with Medicare regulations or non- Medicare payer requirements, as applicable. In the case of services not specified as inpatient-only, they are appropriately provided as inpatient services in accordance with the 2-midnight benchmark. Estimated LOS (days): 3 3 days is the estimated time the patient will need to remain in the hospital, assuming treatment plan goals are met and no additional complications. Post-Hospital Plan: Not yet determined Problem Qualifiers (1) Anemia: Qualified Code: D62 - Acute posthemorrhagic anemia (2) Abdominal wall hematoma: Qualified Code: S30.1XXA - Abdominal wall hematoma, initial encounter Saritha Marie Jun 18, 2016 09:12 Richard Lopez DO Jun 18, 2016 19:20
[2016-06-18] MEDS: RESP: ALBUTEROL 2.5 MG/IPRATROPIUM 0.5 MG NEB (SCH) NEB ×2 (16:34→20:05)
[2016-06-18] MEDS: SODIUM CHLORIDE 0.9% FLUSH 5 ML FLUSH IVF SCH (20:59)
[2016-06-18] MEDS: PRAVASTATIN SOD 40 MG TAB PO SCH (20:59)
[2016-06-18 22:47] LABS: HEMATOCRIT 28.3 % (35.0-46.0); REVIEW FLAG FINAL
[2016-06-19] VITALS (11 sets, daily range): BP systolic 103–156; BP diastolic 55–86; PULSE 70–108; RESP 12–21; TEMP 96.6–99.3; O2SAT 93–100
[2016-06-19] MEDS: CHLORHEXIDINE GLUCONATE 2 % 1 PACK (2 CLOTHS)(taper/protocol) TOP SCH (04:00)
[2016-06-19 05:40] LABS: AUTOMATED NEUTROPHIL # 18.7 TH/MM3 (1.8-7.7); BASOPHIL # 0.1 TH/MM3 (0-0.2); BASOPHIL % 0.3 % (0.0-2.0); EOSINOPHIL % 0.1 % (0.0-4.0); HEMATOCRIT 29.2 % (35.0-46.0); HEMO FLAGS DIFF FINAL; LYMPH % 1.5 % (9.0-44.0); LYMPHOCYTE # 0.3 TH/MM3 (1.0-4.8); MEAN CELL VOLUME 94.4 FL (80.0-100.0); MEAN CORPUSCULAR HEMOGLOBIN 32.4 PG (27.0-34.0); MEAN CORPUSCULAR HGB CONC 34.3 % (32.0-36.0); MONO % 2.2 % (0.0-8.0); NEUT % 95.9 % (16.0-70.0); PLATELET COUNT 118 TH/MM3 (150-450); RED CELL DISTRIBUTION WIDTH 19.1 % (11.6-17.2); WHITE BLOOD COUNT 19.5 TH/MM3 (4.0-11.0)
[2016-06-19] MEDS: RESP: ALBUTEROL 2.5 MG/IPRATROPIUM 0.5 MG NEB (SCH) NEB ×3 (07:27→20:32)
--- NOTE | 2016-06-19 07:35 | EKG ---
Date Performed: 06/17/2016 Time Performed: 20:37:07 PTAGE: 76 years EKG: Sinus rhythm BORDERLINE LEFT AXIS DEVIATION NONSPECIFIC T-WAVE ABNORMALITY BORDERLINE ECG Compared to the PREVIOUS TRACING sinus rhythm has replaced atrial fibrillation with rapid ventricular re sponse PREVIOUS TRACIN06/07/2016 15.17 DOCTOR: Robin Stanford Interpretating Date/Time 06/19/2016 07:34:31
[2016-06-19] MEDS ORDERED: FUROSEMIDE 100 MG/10 ML VIAL IV PUSH ONE (09:00)
[2016-06-19] MEDS: UMECLIDINIUM 62.5 MCG/VILANTEROL 25 MCG INHALER INH SCH (09:00)
[2016-06-19] MEDS: CETIRIZINE HCL 10 MG TAB PO SCH (09:29)
[2016-06-19] MEDS: SODIUM CHLORIDE 0.9% FLUSH 5 ML FLUSH IVF SCH ×2 (09:29→19:53)
[2016-06-19] MEDS: PANTOPRAZOLE SOD 20 MG DELAYED RELEASE TAB PO SCH (09:29)
[2016-06-19] MEDS: AMIODARONE 200 MG TAB PO SCH (09:29)
[2016-06-19] MEDS: MEGESTROL ACETATE 40 MG TAB PO SCH ×2 (09:29→19:53)
--- NOTE | 2016-06-19 09:32 | HHI.PR ---
Subjective Remarks Pts O2 requirements have increased overnight to 6L of supplemental O2 Currently she is on 5L of supplemental O2 The pt denies any increased cough or congestion She does feel more SOB today Afebrile. Objective Vitals Vital Signs Date Time Temp Pulse Resp B/P Pulse Ox O2 Delivery O2 Flow Rate FiO2 06/19/16 07:28 94 Nasal Cannula 6.00 06/19/16 06:00 78 06/19/16 04:00 86 06/19/16 04:00 97.8 86 21 111/76 99 06/19/16 02:00 70 06/19/16 00:00 71 06/19/16 00:00 97.6 71 12 103/55 97 06/18/16 23:00 78 06/18/16 22:00 78 06/18/16 20:03 98 Nasal Cannula 3.00 06/18/16 20:00 98.4 71 14 114/65 96 06/18/16 20:00 71 06/18/16 18:00 74 06/18/16 16:26 98.2 74 22 116/58 96 06/18/16 16:25 76 06/18/16 15:03 74 06/18/16 14:00 72 06/18/16 12:24 98.5 75 18 106/66 93 06/18/16 12:23 76 06/18/16 10:00 74 06/18/16 06/18/16 06/19/16 15:00 23:00 07:00 Intake Total 550 ml 150 ml Output Total 825 ml 750 ml 600 ml Balance -275 ml -600 ml -600 ml Intake Oral 550 ml IV Total 150 ml Output Urine Total 825 ml 750 ml 600 ml # Voids 3 # Bowel Movements 0 Result Diagram: 06/19/16 0440 06/17/16 2227 Other Results Laboratory Tests Test 06/17/16 06/17/16 06/18/16 06/18/16 22:27 23:18 02:45 07:48 White Blood Count 24.9 TH/MM3 22.8 TH/MM3 Red Blood Count 1.83 MIL/MM3 3.06 MIL/MM3 Hemoglobin 6.5 GM/DL 9.9 GM/DL Hematocrit 19.0 % 28.6 % Mean Corpuscular Volume 103.9 FL 93.4 FL Mean Corpuscular Hemoglobin 35.7 PG 32.5 PG Mean Corpuscular Hemoglobin 34.4 % 34.8 % Concent Red Cell Distribution Width 14.1 % 19.1 % Platelet Count 153 TH/MM3 120 TH/MM3 Mean Platelet Volume 8.4 FL 8.2 FL Neutrophils (%) (Auto) 93.9 % 94.8 % Lymphocytes (%) (Auto) 0.9 % 1.7 % Monocytes (%) (Auto) 4.8 % 3.2 % Eosinophils (%) (Auto) 0.0 % 0.0 % Basophils (%) (Auto) 0.4 % 0.3 % Neutrophils # (Auto) 23.4 TH/MM3 21.6 TH/MM3 Lymphocytes # (Auto) 0.2 TH/MM3 0.4 TH/MM3 Monocytes # (Auto) 1.2 TH/MM3 0.7 TH/MM3 Eosinophils # (Auto) 0.0 TH/MM3 0.0 TH/MM3 Basophils # (Auto) 0.1 TH/MM3 0.1 TH/MM3 CBC Comment AUTO DIFF DIFF FINAL Differential Comment AUTO DIFF CONFIRMED Toxic Granulation 1+ Platelet Estimate NORMAL Platelet Morphology Comment NORMAL Prothrombin Time 11.6 SEC Prothromb Time International 1.0 RATIO Ratio Activated Partial 25.6 SEC Thromboplast Time B-Type Natriuretic Peptide 166 PG/ML Sodium Level 142 MEQ/L Potassium Level 4.1 MEQ/L Chloride Level 103 MEQ/L Carbon Dioxide Level 28.7 MEQ/L Anion Gap 10 MEQ/L Blood Urea Nitrogen 72 MG/DL Creatinine 2.05 MG/DL Estimat Glomerular Filtration 24 ML/MIN Rate Random Glucose 158 MG/DL Calcium Level 8.4 MG/DL Total Bilirubin 0.7 MG/DL Aspartate Amino Transf 52 U/L (AST/SGOT) Alanine Aminotransferase 31 U/L (ALT/SGPT) Alkaline Phosphatase 49 U/L Total Creatine Kinase 718 U/L Creatine Kinase MB 1.9 NG/ML Creatine Kinase MB % 0.3 % Troponin I 0.11 NG/ML Total Protein 5.4 GM/DL Albumin 2.7 GM/DL Blood Type A POSITIVE Antibody Screen NEGATIVE Crossmatch Leukocyte-Reduced Red Blood Cells Blood Bank Comment Nasal Screen MRSA (PCR) NEGATIVE Test 06/18/16 06/19/16 22:37 04:40 Hemoglobin 9.8 GM/DL 10.0 GM/DL Hematocrit 28.3 % 29.2 % White Blood Count 19.5 TH/MM3 Red Blood Count 3.10 MIL/MM3 Mean Corpuscular Volume 94.4 FL Mean Corpuscular Hemoglobin 32.4 PG Mean Corpuscular Hemoglobin 34.3 % Concent Red Cell Distribution Width 19.1 % Platelet Count 118 TH/MM3 Mean Platelet Volume 8.7 FL Neutrophils (%) (Auto) 95.9 % Lymphocytes (%) (Auto) 1.5 % Monocytes (%) (Auto) 2.2 % Eosinophils (%) (Auto) 0.1 % Basophils (%) (Auto) 0.3 % Neutrophils # (Auto) 18.7 TH/MM3 Lymphocytes # (Auto) 0.3 TH/MM3 Monocytes # (Auto) 0.4 TH/MM3 Eosinophils # (Auto) 0.0 TH/MM3 Basophils # (Auto) 0.1 TH/MM3 CBC Comment DIFF FINAL Differential Comment Imaging CT Abd/pelvis (06/18/16) - 8 x 5cm left sided rectus sheath hematoma - Punctate calcific densities in the kidneys likely representing vascular calcifications - Colonic diverticulosis but no evidence of acute diverticulitis. Objective Remarks General: NAD, AAOx3 Chest: Good air movement bilaterally Cardiac: Regular Abd: +BS, soft ND/NT Ext: No edema A/P Problem List: (1) Anemia Status: Acute Plan: - Pt admitted with an acute drop in here H/H to Hgb 6.5/Hct 19.0. - Prior to his previous discharge her last labs on 06/10/16 noted Hgb 11.4. - Pt was transfused with 2 units PRBCs and repeat labs this morning noted an improvement in her H/H - Pt denies any active GIB and no noted hematuria. - Pt had a CT abd/pelvis which revealed an 8 x 5cm left sided rectus sheath hematoma. - Xarelto has been stopped - Monitor H/H closely - Monitor clinical status and for any evidence of further bleeding. - Supportive care - DVT prophylaxis with SCDs (2) Abdominal wall hematoma Status: Acute Plan: - See above. (3) COPD (chronic obstructive pulmonary disease) Status: Chronic Plan: - Pt recently admitted with a COPD exacerbation/bronchitis. - She was treated with Solumedrol, Duonebs and antibiotics. - Pt ws discharged to rehab on a taper of prednisone, duonebs and Levaquin x 2 days. - Pt was noted to have leukocytosis at admission, this may be related to the steroids. - CXR at admission noted a possible small infiltrate at the right costophrenic angle but pt feels that she has been symptomatically improving since her last hospitalization. She was feeling somewhat more SOB prior to this admission which was likely due to her anemia. This has improved with her blood transfusion. - Cont. Duonebs Q6H WA - Pt with increased O2 requirements overnight and this morning - Check CXR this morning and recheck BMP - Resume Solu-Medrol - Repeat CXR in AM (4) Paroxysmal atrial fibrillation with rapid ventricular response Status: Resolved Plan: - Pt had previous paroxysmal atrial fibrillation with RVR during her last admission but converted to NSR with Amio and Cardizem - She was continued on Amiodarone and Cardizem at discharge. - We will resume her Amiodarone at this time. - Her BP has been somewhat low so we will hold the Cardizem. Add back as the BP allows. - Telemetry - Hold Xarelto (5) HTN (hypertension) Status: Chronic Plan: - BP running low - Monitor (6) Hyperlipidemia Status: Chronic Plan: - Cont. home meds (7) Tobacco use Status: Chronic Plan: - Tobacco cessation - Pt declines Nicotine patch (8) Alcohol use Status: Chronic Plan: - No alcohol since previous admission earlier this month. Assessment and Plan Patient examined. Assessment and plan formulated with Saritha Marie PA-C. I agree with the above. Problem Qualifiers (1) Anemia: Qualified Code: D62 - Acute posthemorrhagic anemia (2) Abdominal wall hematoma: Qualified Code: S30.1XXA - Abdominal wall hematoma, initial encounter Saritha Marie Jun 19, 2016 09:32 Richard Lopez DO Jun 20, 2016 15:45
--- NOTE | 2016-06-19 09:58 | RADRPT ---
EXAM DATE/TIME: 06/19/2016 08:03 [facility] COMPARISON: CT PULMONARY ANGIOGRAM, June 06, 2016, 1:30. CHEST SINGLE AP, June 17, 2016, 22:37. INDICATIONS : Shortness of breath MEDICAL HISTORY : Chronic obstructive pulmonary disease. SURGICAL HISTORY : None. ENCOUNTER: Subsequent ACUITY: 3 days PAIN SCORE: 0/10 LOCATION: Bilateral chest FINDINGS: Heart size is normal. There is some patchy density identified at the bases bilaterally. There is so me underlying prominence in the interstitium which appears unchanged. A significant effusion is not seen. The lungs do appear somewhat hyperinflated. CONCLUSION: 1... Bibasilar areas of increased density seen at the medial left base and the lateral right base. 2. Hyperinflated lungs with some prominence in the interstitium likely related to chronic obstructiv e disease. Howie López MD on June 19, 2016 at 9:47 Board Certified Radiologist. This report was verified electronically.
[2016-06-19] MEDS ORDERED: RESP: ACETYLCYSTEINE 20% 30 ML NEB NEB ONE (12:00)
[2016-06-19] MEDS: methylPREDNISolone SOD SUCC 125 MG/2 ML VIAL IV PUSH SCH ×2 (12:21→17:32)
[2016-06-19 12:28] LABS: BICARBONATE 31.4 MEQ/L (21.0-32.0); POTASSIUM 3.2 MEQ/L (3.5-5.1)
[2016-06-19] MEDS: RESP: ACETYLCYSTEINE 20% 30 ML NEB NEB SCH ×2 (15:14→20:31)
[2016-06-19] MEDS ORDERED: POTASSIUM BICARBONATE 25 MEQ EFFERVESCENT TAB PO ONE (16:15)
[2016-06-19] MEDS: POTASSIUM CHLOR 20 MEQ PREMIX 100 ML IV SCH ×2 (17:32→17:39)
[2016-06-19] MEDS: PRAVASTATIN SOD 40 MG TAB PO SCH (19:53)
[2016-06-20] VITALS (8 sets, daily range): BP systolic 99–160; BP diastolic 52–99; PULSE 70–97; RESP 18–20; TEMP 96.4–98; O2SAT 95–98
[2016-06-20] MEDS: methylPREDNISolone SOD SUCC 125 MG/2 ML VIAL IV PUSH SCH ×5 (00:22→21:32)
[2016-06-20 00:59] LABS: C. DIFF EPI 027 PRESUMPTIVE NEGATIVE (NEGATIVE); C. DIFF TOXIN PCR NEGATIVE (NEGATIVE)
[2016-06-20] MEDS: CHLORHEXIDINE GLUCONATE 2 % 1 PACK (2 CLOTHS)(taper/protocol) TOP SCH (04:00)
[2016-06-20] MEDS: RESP: ACETYLCYSTEINE 20% 30 ML NEB NEB SCH ×3 (04:05→19:50)
--- NOTE | 2016-06-20 08:28 | RADRPT ---
EXAM DATE/TIME: 06/20/2016 06:54 [facility] COMPARISON: CHEST SINGLE AP, June 19, 2016, 8:03. INDICATIONS: Cough, short of breath MEDICAL HISTORY: Chronic obstructive pulmonary disease. SURGICAL HISTORY: None. ENCOUNTER: Subsequent ACUITY: 4 - 6 days PAIN SCORE: 0/10 LOCATION: Bilateral chest FINDINGS: There are increasing bibasilar parenchymal changes worse on the left than the right when compared to 06/19. There is no pneumothorax. Old clavicular fracture seen on the left. CONCLUSION: Increasing consolidative changes in the left base. Fawad Gray MD FACR on June 20, 2016 at 7:44 Board Certified Radiologist. This report was verified electronically.
[2016-06-20 08:31] LABS: BICARBONATE 32.4 MEQ/L (21.0-32.0); POTASSIUM 3.4 MEQ/L (3.5-5.1)
[2016-06-20 08:32] LABS: AUTOMATED NEUTROPHIL # 13.8 TH/MM3 (1.8-7.7); BASOPHIL % 0.2 % (0.0-2.0); HEMATOCRIT 31.1 % (35.0-46.0); HEMO FLAGS DIFF FINAL; LYMPH % 1.3 % (9.0-44.0); LYMPHOCYTE # 0.2 TH/MM3 (1.0-4.8); MEAN CELL VOLUME 96.2 FL (80.0-100.0); MEAN CORPUSCULAR HEMOGLOBIN 31.4 PG (27.0-34.0); MEAN CORPUSCULAR HGB CONC 32.7 % (32.0-36.0); MONO % 2.3 % (0.0-8.0); NEUT % 96.2 % (16.0-70.0); PLATELET COUNT 107 TH/MM3 (150-450); RED BLOOD COUNT 3.24 MIL/MM3 (4.00-5.30); WHITE BLOOD COUNT 14.4 TH/MM3 (4.0-11.0)
--- NOTE | 2016-06-20 09:02 | HHI.PR ---
Subjective Remarks Pt is on the bedside commode this morning having a BM. She is now on 4L of supplemental O2 Still feeling SOB with minimal ambulation. Denies any chest pain, dizziness, chills or fever Pt overall feels weak. Objective Vitals Vital Signs Date Time Temp Pulse Resp B/P Pulse Ox O2 Delivery O2 Flow Rate FiO2 06/20/16 04:00 97.7 70 18 115/74 97 06/20/16 00:00 97.7 80 18 121/56 98 06/19/16 22:30 96.6 88 17 119/67 97 06/19/16 20:32 100 Nasal Cannula 4.00 06/19/16 20:00 96.9 90 20 142/71 96 06/19/16 20:00 90 06/19/16 16:00 99.3 97 20 156/86 93 06/19/16 12:00 98.1 81 17 107/62 95 06/19/16 06/19/16 06/20/16 15:00 23:00 07:00 Intake Total 200 ml 290 ml 200 ml Output Total 300 ml 250 ml Balance -100 ml 40 ml 200 ml Intake Oral 200 ml 240 ml 200 ml IV Total 50 ml Output Urine Total 300 ml 250 ml # Voids 1 2 # Bowel Movements 1 1 1 Result Diagram: 06/20/16 0729 06/20/16 0729 Other Results Laboratory Tests Test 06/18/16 06/19/16 06/19/16 06/19/16 22:37 04:40 11:13 23:07 Hemoglobin 9.8 GM/DL 10.0 GM/DL Hematocrit 28.3 % 29.2 % White Blood Count 19.5 TH/MM3 Red Blood Count 3.10 MIL/MM3 Mean Corpuscular Volume 94.4 FL Mean Corpuscular Hemoglobin 32.4 PG Mean Corpuscular Hemoglobin 34.3 % Concent Red Cell Distribution Width 19.1 % Platelet Count 118 TH/MM3 Mean Platelet Volume 8.7 FL Neutrophils (%) (Auto) 95.9 % Lymphocytes (%) (Auto) 1.5 % Monocytes (%) (Auto) 2.2 % Eosinophils (%) (Auto) 0.1 % Basophils (%) (Auto) 0.3 % Neutrophils # (Auto) 18.7 TH/MM3 Lymphocytes # (Auto) 0.3 TH/MM3 Monocytes # (Auto) 0.4 TH/MM3 Eosinophils # (Auto) 0.0 TH/MM3 Basophils # (Auto) 0.1 TH/MM3 CBC Comment DIFF FINAL Differential Comment Sodium Level 145 MEQ/L Potassium Level 3.2 MEQ/L Chloride Level 107 MEQ/L Carbon Dioxide Level 31.4 MEQ/L Anion Gap 7 MEQ/L Blood Urea Nitrogen 38 MG/DL Creatinine 1.16 MG/DL Estimat Glomerular Filtration 46 ML/MIN Rate Random Glucose 129 MG/DL Calcium Level 8.8 MG/DL Stool C. difficile Toxin (PCR) NEGATIVE Stl C. difficile Toxin PRESUMPTIVE Epiderm 027 NEGATIVE Test 06/20/16 07:29 White Blood Count 14.4 TH/MM3 Red Blood Count 3.24 MIL/MM3 Hemoglobin 10.2 GM/DL Hematocrit 31.1 % Mean Corpuscular Volume 96.2 FL Mean Corpuscular Hemoglobin 31.4 PG Mean Corpuscular Hemoglobin 32.7 % Concent Red Cell Distribution Width 19.0 % Platelet Count 107 TH/MM3 Mean Platelet Volume 8.3 FL Neutrophils (%) (Auto) 96.2 % Lymphocytes (%) (Auto) 1.3 % Monocytes (%) (Auto) 2.3 % Eosinophils (%) (Auto) 0.0 % Basophils (%) (Auto) 0.2 % Neutrophils # (Auto) 13.8 TH/MM3 Lymphocytes # (Auto) 0.2 TH/MM3 Monocytes # (Auto) 0.3 TH/MM3 Eosinophils # (Auto) 0.0 TH/MM3 Basophils # (Auto) 0.0 TH/MM3 CBC Comment DIFF FINAL Differential Comment Sodium Level 145 MEQ/L Potassium Level 3.4 MEQ/L Chloride Level 105 MEQ/L Carbon Dioxide Level 32.4 MEQ/L Anion Gap 8 MEQ/L Blood Urea Nitrogen 31 MG/DL Creatinine 1.03 MG/DL Estimat Glomerular Filtration 52 ML/MIN Rate Random Glucose 158 MG/DL Calcium Level 9.1 MG/DL Magnesium Level 2.0 MG/DL Imaging CT Abd/pelvis (06/18/16) - 8 x 5cm left sided rectus sheath hematoma - Punctate calcific densities in the kidneys likely representing vascular calcifications - Colonic diverticulosis but no evidence of acute diverticulitis. Objective Remarks General: NAD, AAOx3 Chest: Good air movement bilaterally Cardiac: Regular Abd: +BS, soft ND/NT Ext: No edema A/P Problem List: (1) Anemia Status: Acute Plan: - Pt admitted with an acute drop in here H/H to Hgb 6.5/Hct 19.0. - Prior to his previous discharge her last labs on 06/10/16 noted Hgb 11.4. - Pt was transfused with 2 units PRBCs and repeat labs this morning noted an improvement in her H/H - Pt denies any active GIB and no noted hematuria. - Pt had a CT abd/pelvis which revealed an 8 x 5cm left sided rectus sheath hematoma. - Xarelto has been stopped - H/H has been stable. - She was noted to be Hemoccult positive but no active GIB noted. - Monitor H/H closely - Monitor clinical status and for any evidence of further bleeding. - Supportive care - Consult PT - DVT prophylaxis with SCDs (2) Abdominal wall hematoma Status: Acute Plan: - See above. (3) COPD (chronic obstructive pulmonary disease) Status: Chronic Plan: - Pt recently admitted with a COPD exacerbation/bronchitis. - She was treated with Solumedrol, Duonebs and antibiotics. - Pt ws discharged to rehab on a taper of prednisone, duonebs and Levaquin x 2 days. - Pt was noted to have leukocytosis at admission, this may be related to the steroids. - CXR at admission noted a possible small infiltrate at the right costophrenic angle but pt feels that she has been symptomatically improving since her last hospitalization. She was feeling somewhat more SOB prior to this admission which was likely due to her anemia. This has improved with her blood transfusion. - Cont. Duonebs Q6H WA - Pt with increased O2 requirements overnight on 06/19 - Repeat CXR (06/20) with increasing consolidative change in the left base. - Solu-Medrol - Mucomyst - Start Zosyn (06/20) - IS - Acapella (4) Paroxysmal atrial fibrillation with rapid ventricular response Status: Resolved Plan: - Pt had previous paroxysmal atrial fibrillation with RVR during her last admission but converted to NSR with Amio and Cardizem - She was continued on Amiodarone and Cardizem at discharge. - We will resume her Amiodarone at this time. - Her BP has been somewhat low so we will hold the Cardizem. Add back as the BP allows. - Telemetry - Hold Xarelto (5) HTN (hypertension) Status: Chronic Plan: - BP running low/normal - Cardizem has been on hold - Monitor (6) Hyperlipidemia Status: Chronic Plan: - Cont. home meds (7) Tobacco use Status: Chronic Plan: - Tobacco cessation - Pt declines Nicotine patch (8) Alcohol use Status: Chronic Plan: - No alcohol since previous admission earlier this month. Assessment and Plan Patient examined. Assessment and plan formulated with Saritha Marie PA-C. I agree with the above. Problem Qualifiers (1) Anemia: Qualified Code: D62 - Acute posthemorrhagic anemia (2) Abdominal wall hematoma: Qualified Code: S30.1XXA - Abdominal wall hematoma, initial encounter Saritha Marie Jun 20, 2016 09:02 Richard Lopez DO Jun 20, 2016 15:46
[2016-06-20] MEDS ORDERED: POTASSIUM CHLORIDE 20 MEQ CONTROLLED RELEASE TAB PO ONE (09:30)
[2016-06-20] MEDS: RESP: ALBUTEROL 2.5 MG/IPRATROPIUM 0.5 MG NEB (SCH) NEB ×3 (09:40→19:50)
[2016-06-20] MEDS: PANTOPRAZOLE SOD 20 MG DELAYED RELEASE TAB PO SCH (09:50)
[2016-06-20] MEDS: CETIRIZINE HCL 10 MG TAB PO SCH (09:50)
[2016-06-20] MEDS: MEGESTROL ACETATE 40 MG TAB PO SCH ×2 (09:50→21:32)
[2016-06-20] MEDS: AMIODARONE 200 MG TAB PO SCH (09:50)
[2016-06-20] MEDS: SODIUM CHLORIDE 0.9% FLUSH 5 ML FLUSH IVF SCH ×2 (09:50→21:32)
[2016-06-20] MEDS: PIPERACIL-TAZO 3.375 GM PREMIX 50 ML IV SCH ×2 (11:40→17:26)
[2016-06-20] MEDS: UMECLIDINIUM 62.5 MCG/VILANTEROL 25 MCG INHALER INH SCH (11:40)
[2016-06-20] MEDS: PRAVASTATIN SOD 40 MG TAB PO SCH (21:32)
[2016-06-21] VITALS (8 sets, daily range): BP systolic 108–145; BP diastolic 71–86; PULSE 84–102; RESP 16–20; TEMP 96.6–98.5; O2SAT 95–99
[2016-06-21] MEDS: PIPERACIL-TAZO 3.375 GM PREMIX 50 ML IV SCH ×3 (02:33→18:07)
[2016-06-21] MEDS: CHLORHEXIDINE GLUCONATE 2 % 1 PACK (2 CLOTHS)(taper/protocol) TOP SCH (03:33)
[2016-06-21] MEDS: RESP: ACETYLCYSTEINE 20% 30 ML NEB NEB SCH ×4 (04:42→21:58)
[2016-06-21] MEDS: RESP: ALBUTEROL 2.5 MG/IPRATROPIUM 0.5 MG NEB (SCH) NEB ×4 (04:43→21:58)
[2016-06-21] MEDS: methylPREDNISolone SOD SUCC 125 MG/2 ML VIAL IV PUSH SCH ×3 (06:40→18:07)
[2016-06-21 06:52] LABS: AUTOMATED NEUTROPHIL # 14.9 TH/MM3 (1.8-7.7); BASOPHIL % 0.1 % (0.0-2.0); HEMATOCRIT 28.9 % (35.0-46.0); LYMPH % 0.7 % (9.0-44.0); LYMPHOCYTE # 0.1 TH/MM3 (1.0-4.8); MEAN CELL VOLUME 95.3 FL (80.0-100.0); MEAN CORPUSCULAR HEMOGLOBIN 31.9 PG (27.0-34.0); MEAN CORPUSCULAR HGB CONC 33.4 % (32.0-36.0); NEUT % 96.2 % (16.0-70.0); PLATELET COUNT 91 TH/MM3 (150-450); RED BLOOD COUNT 3.04 MIL/MM3 (4.00-5.30); RED CELL DISTRIBUTION WIDTH 18.2 % (11.6-17.2); WHITE BLOOD COUNT 15.5 TH/MM3 (4.0-11.0)
[2016-06-21 06:55] LABS: HEMO FLAGS AUTO DIFF
[2016-06-21 08:06] LABS: KERATOCYTES OCC (NORMAL); PLATELET ESTIMATE SMEAR LOW (NORMAL); PLATELET MORPHOLOGY NORMAL (NORMAL); SCAN/DIFF AUTO DIFF CONFIRMED
[2016-06-21] MEDS: AMIODARONE 200 MG TAB PO SCH (09:00)
[2016-06-21] MEDS: REMOVE OLD DURAGESIC (FENTANYL) PATCH TD SCH (09:00)
[2016-06-21] MEDS: PANTOPRAZOLE SOD 20 MG DELAYED RELEASE TAB PO SCH (10:18)
[2016-06-21] MEDS: CETIRIZINE HCL 10 MG TAB PO SCH (10:18)
[2016-06-21] MEDS: MEGESTROL ACETATE 40 MG TAB PO SCH ×2 (10:19→20:24)
[2016-06-21] MEDS: SODIUM CHLORIDE 0.9% FLUSH 5 ML FLUSH IVF SCH ×2 (10:20→20:24)
[2016-06-21] MEDS: fentaNYL 50 MCG/HR PATCH T-DERMAL SCH (10:21)
[2016-06-21] MEDS: UMECLIDINIUM 62.5 MCG/VILANTEROL 25 MCG INHALER INH SCH (10:21)
--- NOTE | 2016-06-21 11:55 | HHI.PR ---
Subjective Remarks Pt and nurse reports that she had a maroon colored stool last night. Pt feels that her SOB is slightly worse today Pt still on 4L of supplemental O2 She reports thrush today Objective Vitals Vital Signs Date Time Temp Pulse Resp B/P Pulse Ox O2 Delivery O2 Flow Rate FiO2 06/21/16 09:06 99 Nasal Cannula 4.00 06/21/16 08:00 96.6 93 18 108/74 96 06/21/16 04:00 96.9 84 16 125/71 99 06/21/16 00:00 98.4 90 17 109/76 97 06/20/16 20:00 98.0 97 20 160/99 98 06/20/16 19:53 98 Nasal Cannula 4.00 06/20/16 16:00 97.9 85 18 106/72 98 06/20/16 12:00 96.4 90 20 99/52 95 06/20/16 06/20/16 06/21/16 15:00 23:00 07:00 Intake Total 1155 ml Balance 1155 ml Intake Oral 1080 ml IV Total 75 ml # Voids 2 1 3 # Bowel Movements 1 1 Result Diagram: 06/21/16 0548 06/20/16 0729 Other Results Laboratory Tests Test 06/19/16 06/20/16 06/21/16 23:07 07:29 05:48 Stool C. difficile Toxin (PCR) NEGATIVE Stl C. difficile Toxin PRESUMPTIVE Epiderm 027 NEGATIVE White Blood Count 14.4 TH/MM3 15.5 TH/MM3 Red Blood Count 3.24 MIL/MM3 3.04 MIL/MM3 Hemoglobin 10.2 GM/DL 9.7 GM/DL Hematocrit 31.1 % 28.9 % Mean Corpuscular Volume 96.2 FL 95.3 FL Mean Corpuscular Hemoglobin 31.4 PG 31.9 PG Mean Corpuscular Hemoglobin 32.7 % 33.4 % Concent Red Cell Distribution Width 19.0 % 18.2 % Platelet Count 107 TH/MM3 91 TH/MM3 Mean Platelet Volume 8.3 FL 8.5 FL Neutrophils (%) (Auto) 96.2 % 96.2 % Lymphocytes (%) (Auto) 1.3 % 0.7 % Monocytes (%) (Auto) 2.3 % 3.0 % Eosinophils (%) (Auto) 0.0 % 0.0 % Basophils (%) (Auto) 0.2 % 0.1 % Neutrophils # (Auto) 13.8 TH/MM3 14.9 TH/MM3 Lymphocytes # (Auto) 0.2 TH/MM3 0.1 TH/MM3 Monocytes # (Auto) 0.3 TH/MM3 0.5 TH/MM3 Eosinophils # (Auto) 0.0 TH/MM3 0.0 TH/MM3 Basophils # (Auto) 0.0 TH/MM3 0.0 TH/MM3 CBC Comment DIFF FINAL AUTO DIFF Differential Comment AUTO DIFF CONFIRMED Sodium Level 145 MEQ/L Potassium Level 3.4 MEQ/L Chloride Level 105 MEQ/L Carbon Dioxide Level 32.4 MEQ/L Anion Gap 8 MEQ/L Blood Urea Nitrogen 31 MG/DL Creatinine 1.03 MG/DL Estimat Glomerular Filtration 52 ML/MIN Rate Random Glucose 158 MG/DL Calcium Level 9.1 MG/DL Magnesium Level 2.0 MG/DL Platelet Estimate LOW Platelet Morphology Comment NORMAL Keratocytes OCC Imaging Last Impressions Chest X-Ray 06/20/16 0600 Signed Impressions: Service Date/Time: June 06:54 - CONCLUSION: Increasing consolidative changes in the left base. Fawad Gray MD FACR Abdomen/Pelvis CT 06/18/16 0000 Signed Impressions: Service Date/Time: Saturday, June 18, 2016 00:43 - CONCLUSION: 1. 8 x 5 cm left-sided rectus sheath hematoma. 2. Punctate calcific densities in the kidneys likely representing vascular calcifications. 3. Colonic diverticulosis but no evidence of acute diverticulitis. Jesse Hoff MD Objective Remarks General: NAD, AAOx3 ENT: White plaquing on tongue Chest: Diminished air movement worse at the bases bilaterally Cardiac: Regular Abd: +BS, soft ND/NT Ext: No edema A/P Problem List: (1) Anemia Status: Acute Plan: - Pt admitted with an acute drop in here H/H to Hgb 6.5/Hct 19.0. - Prior to his previous discharge her last labs on 06/10/16 noted Hgb 11.4. - Pt was transfused with 2 units PRBCs and repeat labs noted an improvement in her H/H - Pt had a CT abd/pelvis which revealed an 8 x 5cm left sided rectus sheath hematoma. - Xarelto has been stopped - H/H has been stable. - She was noted to be Hemoccult positive and pt is nor reporting maroon colored stool. - Consult GI - Monitor H/H closely - Supportive care - Consult PT - DVT prophylaxis with SCDs (2) Abdominal wall hematoma Status: Acute Plan: - See above. (3) COPD (chronic obstructive pulmonary disease) Status: Chronic Plan: - Pt recently admitted with a COPD exacerbation/bronchitis. - She was treated with Solumedrol, Duonebs and antibiotics. - Pt ws discharged to rehab on a taper of prednisone, duonebs and Levaquin x 2 days. - Pt was noted to have leukocytosis at admission, this may be related to the steroids. - CXR at admission noted a possible small infiltrate at the right costophrenic angle but pt feels that she has been symptomatically improving since her last hospitalization. She was feeling somewhat more SOB prior to this admission which was likely due to her anemia. This has improved with her blood transfusion. - Cont. Duonebs Q6H WA - Pt with increased O2 requirements overnight on 06/19 - Repeat CXR (06/20) with increasing consolidative change in the left base. - Solu-Medrol - Mucomyst - Start Zosyn (06/20) - IS - Acapella (4) Thrush Status: Acute Plan: - Add on Nystatin swish and swallow (5) Paroxysmal atrial fibrillation with rapid ventricular response Status: Resolved Plan: - Pt had previous paroxysmal atrial fibrillation with RVR during her last admission but converted to NSR with Amio and Cardizem - She was continued on Amiodarone and Cardizem at discharge. - We will resume her Amiodarone at this time. - Her BP has been somewhat low so we will hold the Cardizem. Add back as the BP allows. - Telemetry - Hold Xarelto (6) HTN (hypertension) Status: Chronic Plan: - BP running low/normal - Cardizem has been on hold - Monitor (7) Hyperlipidemia Status: Chronic Plan: - Cont. home meds (8) Tobacco use Status: Chronic Plan: - Tobacco cessation - Pt declines Nicotine patch (9) Alcohol use Status: Chronic Plan: - No alcohol since previous admission earlier this month. Assessment and Plan Patient examined. Assessment and plan formulated with Saritha Marie PA-C. I agree with the above. Problem Qualifiers (1) Anemia: Qualified Code: D62 - Acute posthemorrhagic anemia (2) Abdominal wall hematoma: Qualified Code: S30.1XXA - Abdominal wall hematoma, initial encounter Saritha Marie Jun 21, 2016 11:55 Richard Lopez DO Jun 22, 2016 11:56
[2016-06-21] MEDS ORDERED: POTASSIUM CHLORIDE 20 MEQ CONTROLLED RELEASE TAB PO ONE (13:30)
[2016-06-21] MEDS ORDERED: ACETAMINOPHEN/HYDROcodone 325 MG/5 MG TAB PO PRN (15:00)
--- NOTE | 2016-06-21 15:13 | PD.CONS ---
HPI History of Present Illness This is a 76 year old female patient who is was brought in from a local nursing facility for evaluation of anemia. She was hospitalized earlier this month and during that hospitalization, developed atrial fibrillation with RVR. She was given Cardizem and Amiodarone and converted to sinus rhythm and was started on Xarelto per cardiology's recommendations. She was discharged on 06/13. Her last H/H prior to d/c was on 06/10/16 and was 11.4/33.5. She was brought back to the ER on 06/17/16 and noted to have H/H of 6.5/19.0 at that time. Abdomen/Pelvis CT (06/18/16) revealed 1. 8 x 5 cm left-sided rectus sheath hematoma. 2. Punctate calcific densities in the kidneys likely representing vascular calcifications. 3. Colonic diverticulosis but no evidence of acute diverticulitis. It was originally thought that this was likely the etiology for her anemia. However, the patient had a bloody bowel movement earlier today and therefore GI was consulted. The patient is an extremely poor historian. She reports that she has recently had some red blood mixed within her stool. The nurse reports that earlier today, she had a formed bowel movement, which had a maroon tint to it. She occasionally has constipation and needs to take a laxative, although she cannot state how often this occurs or what laxative she uses. She reports that she has had a poor appetite and has lost some weight, although she cannot quantify the amount. She has a remote history of PUD, but states has not had any issues with this in quite some time. EGD/Colonoscopy (09/12/11)------> gastritis in the antrum, duodenitis in ghulam bulb of duodenum, esophagitis in the distal esophagus, a hiatal hernia, diminutive polyp in the ascending colon, mid transverse colon, descending colon, and rectum; poor prep in the ascending colon, moderate diverticulosis in the the descending and sigmoid colon, small internal hemorrhoids, decreased sphincter tone, perianal skin tags. Recommended repeat colonoscopy in 3 years. Pathology revealed reactive gastropathy, benign duodenal mucosa without pathological abnormalities , distal esophagus squamocolumnar junction mucosa without significant pathological abnormalities, ascending colon polyp with benign polypoid colonic mucosal fold, transverse colon biopsy with tubular adenoma, descending colon with tubular adenoma, rectal polyp with hyperplastic polyp. (Dania Jacobs) PFSH Past Medical History Diverticulosis/Diverticulitis Fibromyalgia Gastritis Hyperlipidemia HTN Hemorrhoids Chronic back pain Chronic bronchitis Osteoarthritis PVD Hx rectovaginal fistula Hx colon polyps Hx uterine cancer Atrial fibrillation Past Surgical History Appendectomy Breast surgery mastectomy EGD/Colonoscopy Tonsillectomy Splenectomy Total abdominal hysterectomy Wrist excision of ganglion (Dania Jacobs) Coded Allergies: Morphine (Verified Allergy, Severe, THRASHING, 06/05/16) Lisinopril (Verified Allergy, Intermediate, VOMITING, 06/05/16) Medications Allergies Coded Allergies Type Severity Reaction Last Updated Verified Morphine Allergy Severe THRASHING 06/05/16 Yes Lisinopril Allergy Intermediate VOMITING 06/05/16 Yes Active Scripts Medications Dose Route/Sig Days Date Category Dose Instructions Mucinex ER 12 HR (Guaifenesin) 600 Mg Xavier 600 Mg PO BID 7 06/13/16 Rx Levaquin (Levofloxacin) 500 Mg Tab 500 Mg PO DAILY 2 06/13/16 Rx Xarelto (Rivaroxaban) 20 Mg Tab 20 Mg PO DAILY 06/13/16 Rx Prednisone 20 Mg Tab 20 Mg PO DIRECTED 10 06/13/16 Rx 20mg po bid x 3 days, 10mg po bid x 3 days, 10mg po daily x 4 days Megestrol (Megestrol Acetate) 40 Mg Tab 40 Mg PO Q12HR 14 06/13/16 Rx Duoneb (Ipratropium-Albuterol Neb) 0.5-2.5 Mg/3 Ml Neb 1 Ampule NEB Q6HR WHILE AWAKE NEB 30 06/13/16 Rx Cardizem CD 24 HR (Diltiazem CD 24 HR) 120 Mg Caper 120 Mg PO DAILY 06/13/16 Rx Amiodarone (Amiodarone HCl) 200 Mg Tab 200 Mg PO DAILY 06/13/16 Rx Fentanyl Patch 72 HR (Fentanyl) 50 Mcg/Hr Patch 50 Mcg T-DERMAL Q72H 06/13/16 Rx Remove old patch when new one placed. Omeprazole 20 Mg Tab 20 Mg PO DAILY 06/05/16 Reported Lovastatin 40 Mg Tab 40 Mg PO DAILY 06/05/16 Reported Anoro Ellipta Inh (Umeclidinium/Vilanterol) 62.5-25 Mcg/Act Aero 1 Puff INH DAILY 06/05/16 Reported Zyrtec Allergy (Cetirizine HCl) 10 Mg Cap 10 Mg PO DAILY 06/05/16 Reported Family History Maternal history of breast cancer, gastric cancer, heart dz; Paternal hx of DM and prostate cancer. Social History States she drinks 3 cans of beer per day, smokes 3 cigarettes per day. (Dania Jacobs) Review of Systems Constitutional: COMPLAINS OF: Fatigue, Weight loss, Change in appetite Ears, nose, mouth, throat: COMPLAINS OF: Vertigo Respiratory: COMPLAINS OF: Cough, Shortness of breath Cardiovascular: DENIES: Chest pain Gastrointestinal: COMPLAINS OF: Bloody stools, Constipation, Anorexia, DENIES : Abdominal pain, Black stools, Diarrhea, Nausea, Vomiting, Swelling of Abdomen , Heartburn Musculoskeletal: COMPLAINS OF: Joint pain, Back pain Hematologic/lymphatic: COMPLAINS OF: Bruising Psychiatric: DENIES: Confusion (poor historian) (Dania Jacobs) GI Exam Vitals I&O Vital Signs Date Time Temp Pulse Resp B/P Pulse Ox O2 Delivery O2 Flow Rate FiO2 06/21/16 09:06 99 Nasal Cannula 4.00 06/21/16 08:00 96.6 93 18 108/74 96 06/21/16 04:00 96.9 84 16 125/71 99 06/21/16 00:00 98.4 90 17 109/76 97 06/20/16 20:00 98.0 97 20 160/99 98 06/20/16 19:53 98 Nasal Cannula 4.00 06/20/16 16:00 97.9 85 18 106/72 98 I/O 06/20/16 06/20/16 06/20/16 06/21/16 06/21/16 06/21/16 07:00 15:00 23:00 07:00 15:00 23:00 Intake Total 200 ml 1155 ml Balance 200 ml 1155 ml Intake Oral 200 ml 1080 ml IV Total 75 ml # Voids 2 2 1 3 # Bowel Movements 1 1 1 Imaging Last Impressions Chest X-Ray 06/20/16 0600 Signed Impressions: Service Date/Time: June 06:54 - CONCLUSION: Increasing consolidative changes in the left base. Fawad Gray MD FACR Abdomen/Pelvis CT 06/18/16 0000 Signed Impressions: Service Date/Time: Saturday, June 18, 2016 00:43 - CONCLUSION: 1. 8 x 5 cm left-sided rectus sheath hematoma. 2. Punctate calcific densities in the kidneys likely representing vascular calcifications. 3. Colonic diverticulosis but no evidence of acute diverticulitis. Jesse Hoff MD Laboratory Test 06/21/16 05:48 White Blood Count 15.5 TH/MM3 Red Blood Count 3.04 MIL/MM3 Hemoglobin 9.7 GM/DL Hematocrit 28.9 % Mean Corpuscular Volume 95.3 FL Mean Corpuscular Hemoglobin 31.9 PG Mean Corpuscular Hemoglobin 33.4 % Concent Red Cell Distribution Width 18.2 % Platelet Count 91 TH/MM3 Mean Platelet Volume 8.5 FL Neutrophils (%) (Auto) 96.2 % Lymphocytes (%) (Auto) 0.7 % Monocytes (%) (Auto) 3.0 % Eosinophils (%) (Auto) 0.0 % Basophils (%) (Auto) 0.1 % Neutrophils # (Auto) 14.9 TH/MM3 Lymphocytes # (Auto) 0.1 TH/MM3 Monocytes # (Auto) 0.5 TH/MM3 Eosinophils # (Auto) 0.0 TH/MM3 Basophils # (Auto) 0.0 TH/MM3 CBC Comment AUTO DIFF Differential Comment AUTO DIFF CONFIRMED Platelet Estimate LOW Platelet Morphology Comment NORMAL Keratocytes OCC Date/Time Procedure Status Source Growth 06/20/16 20:10 Stool Occult Blood (NELDA) - Final Complete Stool Stool HEMOCCULT POSITIVE 06/19/16 23:07 Cyclospora Exam - Final Resulted Stool Stool NO CYCLOSPORA SEEN 06/19/16 23:07 Cryptosporidium Exam Resulted Stool Stool Pending 06/19/16 23:07 Stool Pus (NELDA) - Final Resulted Stool Stool RARE WBC 06/19/16 23:07 Giardia Antigen (NELDA) Resulted Stool Stool Pending 06/19/16 23:07 Stool Occult Blood (NELDA) - Final Resulted Stool Stool HEMOCCULT POSITIVE 06/19/16 23:07 - Final Complete Stool Stool NO ENTERIC PATHOGENS DETECTED BY PCR... 06/18/16 23:07 Cyclospora Exam Received Stool Stool Pending 06/18/16 23:07 Cryptosporidium Exam Received Stool Stool Pending 06/18/16 23:07 Stool Pus (NELDA) Received Stool Stool Pending 06/18/16 23:07 Giardia Antigen (NELDA) Received Stool Stool Pending 06/18/16 23:07 Stool Occult Blood (NELDA) Received Stool Stool Pending 06/18/16 23:07 Received Stool Stool Pending 06/17/16 22:15 Aerobic Blood Culture - Preliminary Resulted Blood Peripheral NO GROWTH IN 4 DAYS 06/17/16 22:15 Anaerobic Blood Culture - Preliminary Resulted Blood Peripheral NO GROWTH IN 4 DAYS Physical Examination HEENT: Pupils round and reactive to light; normocephalic; atraumatic; no jaundice. CHEST: CTA CARDIAC: RRR ABDOMEN: Soft, nondistended, nontender; no hepatosplenomegaly; bowel sounds are present in all four quadrants. EXTREMITIES: No clubbing, cyanosis, or edema. SKIN: Bruising to periarea. IRRIGATION FOREMAN: No focal deficits; Lethargic and oriented times to self and place. Poor historian. (Dania Jacobs) Assessment and Plan Plan ASSESSMENT: - Severe anemia. Pt was recently hospitalized and started on Xarelto for atrial fibrillation. Her last HH prior to d/c on 06/10 was 11.4/33.5. She was brought to the ER on 06/17 with HH of 6.5/19.0. Abdomen/Pelvis CT (06/18/16) revealed 1. 8 x 5 cm left-sided rectus sheath hematoma. 2. Punctate calcific densities in the kidneys likely representing vascular calcifications. 3. Colonic diverticulosis but no evidence of acute diverticulitis. The anemia was initially thought to be related to this hematoma. However, today she had a bloody stool. The nurse reports that this was a formed stool, dark maroon in color. HH this am was 9.7/28.9. He has received 2 units of PRBC. Xarelto on hold. PPI. - GIB, Lower. Formed stool earlier today, maroon in color per nurse. HH stable. EGD/Colonoscopy (09/12/11)------> gastritis in the antrum, duodenitis in the bulb of duodenum, esophagitis in the distal esophagus, a hiatal hernia, diminutive polyp in the ascending colon, mid transverse colon, descending colon, and rectum; poor prep in the ascending colon, moderate diverticulosis in the the descending and sigmoid colon, small internal hemorrhoids, decreased sphincter tone, perianal skin tags. Recommended repeat colonoscopy in 3 years. Pathology revealed reactive gastropathy, benign duodenal mucosa without pathological abnormalities, distal esophagus squamocolumnar junction mucosa without significant pathological abnormalities, ascending colon polyp with benign polypoid colonic mucosal fold, transverse colon biopsy with tubular adenoma, descending colon with tubular adenoma, rectal polyp with hyperplastic polyp. - Abdominal wall hematoma. CT with 8 x 5 cm left-sided rectus sheath hematoma. - Atrial fibrillation. Xarelto on hold. - HTN, COPD, Hyperlipidemia, PVD, per primary. PLAN: - Plan for egd/colonoscopy on Friday - Obtain consents - Clear liquids on Friday - NPO after MN Friday night - Golytely prep Friday - HH now - Monitor labs - Transfuse as necessary - Cont. PPI - Supportive care - Further recommendations to follow based on results of above - Pt seen and examined by Dr. Alicea and myself and this note is written on his behalf (Dania Jacobs) Physician Comments Seen and examined with BEAUTY ADVISOR, no active bleeding at this time. Anemia could be from rectus sheath hematoma. Egd/ Colonoscopy planned for friday. Dr. Bernabe to follow. Thank you. (Raffi Alicea MD) Dania Jacobs Jun 21, 2016 15:13 Raffi Alicea MD Jun 21, 2016 18:32
[2016-06-21 15:21] LABS: BLOOD, URINE SMALL (NEG); COMMENT (UR) CULT NOT INDICATED; CULTURE IF INDICATED CULT NOT INDICATED; GLUCOSE,URINE 300 mg/dL (NEG); GRANULAR CAST, URINE 6 /lpf; KETONE, URINE NEG (NEG); NITRITE,URINE NEG (NEG); PH, URINE 6.5 (5.0-8.5); SQUAMOUS EPITHELIAL CELL URINE <1 /hpf (0-5); URINE COLOR LIGHT-YELLOW (YELLW/STRAW)
[2016-06-21] MEDS: NYSTATIN SUSP 500,000 U/5 ML CUP SWISH-SWAL SCH ×2 (18:07→20:24)
[2016-06-21 19:55] LABS: HEMATOCRIT 30.9 % (35.0-46.0)
[2016-06-21 20:01] LABS: REVIEW FLAG FINAL
[2016-06-21] MEDS: PRAVASTATIN SOD 40 MG TAB PO SCH (20:24)
[2016-06-22] VITALS (9 sets, daily range): BP systolic 114–143; BP diastolic 72–88; PULSE 90–105; RESP 19–22; TEMP 97–97.8; O2SAT 93–98
[2016-06-22] MEDS: methylPREDNISolone SOD SUCC 125 MG/2 ML VIAL IV PUSH SCH ×4 (00:13→17:00)
[2016-06-22] MEDS: PIPERACIL-TAZO 3.375 GM PREMIX 50 ML IV SCH ×3 (01:29→17:01)
[2016-06-22] MEDS: RESP: ACETYLCYSTEINE 20% 30 ML NEB NEB SCH ×4 (03:44→21:03)
[2016-06-22] MEDS: RESP: ALBUTEROL 2.5 MG/IPRATROPIUM 0.5 MG NEB (SCH) NEB ×4 (03:44→21:03)
[2016-06-22] MEDS: CHLORHEXIDINE GLUCONATE 2 % 1 PACK (2 CLOTHS)(taper/protocol) TOP SCH (04:00)
[2016-06-22 07:48] LABS: AUTOMATED NEUTROPHIL # 12.4 TH/MM3 (1.8-7.7); BASOPHIL % 0.1 % (0.0-2.0); HEMATOCRIT 30.1 % (35.0-46.0); LYMPHOCYTE # 0.1 TH/MM3 (1.0-4.8); MEAN CELL VOLUME 95.5 FL (80.0-100.0); MEAN CORPUSCULAR HEMOGLOBIN 31.7 PG (27.0-34.0); MEAN CORPUSCULAR HGB CONC 33.2 % (32.0-36.0); MONO % 3.4 % (0.0-8.0); NEUT % 95.5 % (16.0-70.0); PLATELET COUNT 82 TH/MM3 (150-450); RED BLOOD COUNT 3.15 MIL/MM3 (4.00-5.30); RED CELL DISTRIBUTION WIDTH 18.1 % (11.6-17.2)
[2016-06-22 08:07] LABS: BICARBONATE 32.2 MEQ/L (21.0-32.0); MAGNESIUM 1.8 MG/DL (1.5-2.5)
[2016-06-22 08:15] LABS: HEMO FLAGS AUTO DIFF
[2016-06-22 08:17] LABS: POTASSIUM 2.6 MEQ/L (3.5-5.1)
--- NOTE | 2016-06-22 09:11 | RADRPT ---
EXAM DATE/TIME: 06/22/2016 08:51 [facility] COMPARISON: CHEST SINGLE AP, June 20, 2016, 6:54. INDICATIONS : Evaluate for pneumonia. Shortness of breath and cough. MEDICAL HISTORY : Chronic obstructive pulmonary disease. SURGICAL HISTORY : None. ENCOUNTER: Subsequent ACUITY: 4 - 6 days PAIN SCORE: 0/10 LOCATION: chest FINDINGS: PA and lateral views of the chest demonstrates improvement of the previously noted left lower lung in filtrate. There is a small mild infiltrate in the right costophrenic angle. There is chronic intersti tial changes which are stable. No other new infiltrates are seen. The heart size is stable. There is no pleural effusions. The bony structures are stable. There is an old fracture of the left clavicle. CONCLUSION: 1. Improving left lower lung infiltrate. 2. Small focal infiltrate right costophrenic angle. Asaf Barriga MD on June 22, 2016 at 9:08 Board Certified Radiologist. This report was verified electronically.
[2016-06-22] MEDS: PANTOPRAZOLE SOD 20 MG DELAYED RELEASE TAB PO SCH (09:19)
[2016-06-22] MEDS: UMECLIDINIUM 62.5 MCG/VILANTEROL 25 MCG INHALER INH SCH (09:19)
[2016-06-22] MEDS: AMIODARONE 200 MG TAB PO SCH (09:19)
[2016-06-22] MEDS: CETIRIZINE HCL 10 MG TAB PO SCH (09:19)
[2016-06-22] MEDS: MEGESTROL ACETATE 40 MG TAB PO SCH ×2 (09:19→21:44)
[2016-06-22] MEDS: NYSTATIN SUSP 500,000 U/5 ML CUP SWISH-SWAL SCH ×4 (09:20→21:44)
[2016-06-22] MEDS: POTASSIUM CHLORIDE 20 MEQ CONTROLLED RELEASE TAB PO SCH ×2 (09:20→12:11)
[2016-06-22] MEDS: SODIUM CHLORIDE 0.9% FLUSH 5 ML FLUSH IVF SCH ×2 (09:21→21:44)
[2016-06-22 09:26] LABS: ACANTHOCYTES OCC (NORMAL); KERATOCYTES OCC (NORMAL); PLATELET ESTIMATE SMEAR LOW (NORMAL)
[2016-06-22 09:27] LABS: PLATELET MORPHOLOGY ENLARGED (NORMAL); SCAN/DIFF AUTO DIFF CONFIRMED
--- NOTE | 2016-06-22 12:00 | HHI.PR ---
Subjective Remarks NO melanotic stools today. Pt is tolerating PO intake. Objective Vitals Vital Signs Date Time Temp Pulse Resp B/P Pulse Ox O2 Delivery O2 Flow Rate FiO2 06/22/16 10:00 97.8 105 20 119/78 96 06/22/16 09:47 97 Nasal Cannula 2.00 06/22/16 04:00 97.4 102 22 121/76 95 06/22/16 03:48 98 Nasal Cannula 3.00 06/22/16 00:00 97.2 104 22 143/88 96 06/21/16 22:00 98 Nasal Cannula 3.00 06/21/16 20:00 97.4 98 19 145/85 97 06/21/16 16:00 98.5 94 20 129/86 98 06/21/16 12:00 98.2 102 20 108/80 95 06/21/16 06/21/16 06/22/16 15:00 23:00 07:00 Intake Total 840 ml 402 ml 240 ml Output Total 300 ml 400 ml Balance 840 ml 102 ml -160 ml Intake Oral 840 ml 240 ml IV Total 402 ml Output Urine Total 300 ml 400 ml # Voids 3 # Bowel Movements 2 1 Result Diagram: 06/22/16 0720 06/22/16 0720 Imaging Last Impressions Chest X-Ray 06/20/16 0600 Signed Impressions: Service Date/Time: June 06:54 - CONCLUSION: Increasing consolidative changes in the left base. Fawad Gray MD FACR Abdomen/Pelvis CT 06/18/16 0000 Signed Impressions: Service Date/Time: Saturday, June 18, 2016 00:43 - CONCLUSION: 1. 8 x 5 cm left-sided rectus sheath hematoma. 2. Punctate calcific densities in the kidneys likely representing vascular calcifications. 3. Colonic diverticulosis but no evidence of acute diverticulitis. Jesse Hoff MD Objective Remarks General: NAD, AAOx3 ENT: White plaquing on tongue --> improving Chest: Diminished air movement worse at the bases bilaterally Cardiac: Regular Abd: +BS, soft ND/NT Ext: No edema A/P Problem List: (1) Anemia Status: Acute Plan: - comgmt with GI - Pt admitted with an acute drop in here H/H to Hgb 6.5/Hct 19.0. - Prior to his previous discharge her last labs on 06/10/16 noted Hgb 11.4. - Pt was transfused with 2 units PRBCs and repeat labs noted an improvement in her H/H - Pt had a CT abd/pelvis which revealed an 8 x 5cm left sided rectus sheath hematoma. - Xarelto has been stopped - H/H has been stable. - She was noted to be Hemoccult positive and pt is nor reporting maroon colored stool. - observe Hg level - Pt seen by GI & planned for EGD/Colonoscopy 06/24/16 - Supportive care - PT - Pt will need to return to SNF at the end of this hospitalization - Anticipate d/c to SNF on Friday or Friday - DVT prophylaxis with SCDs (2) Abdominal wall hematoma Status: Acute Plan: - See above. (3) COPD (chronic obstructive pulmonary disease) Status: Chronic Plan: - Pt recently admitted with a COPD exacerbation/bronchitis. - She was treated with Solumedrol, Duonebs and antibiotics. - Pt ws discharged to rehab on a taper of prednisone, duonebs and Levaquin x 2 days. - Pt was noted to have leukocytosis at admission, this may be related to the steroids. - CXR at admission noted a possible small infiltrate at the right costophrenic angle but pt feels that she has been symptomatically improving since her last hospitalization. She was feeling somewhat more SOB prior to this admission which was likely due to her anemia. This has improved with her blood transfusion. - Cont. Duonebs Q6H WA - Pt with increased O2 requirements overnight on 06/19, oxygen now down to 2L by NC - Repeat CXR (06/20) with increasing consolidative change in the left base. - Solu-Medrol - Mucomyst - Zosyn (06/20- present) - IS - Acapella (4) Thrush Status: Acute Plan: - Nystatin swish and swallow (5) Paroxysmal atrial fibrillation with rapid ventricular response Status: Resolved Plan: - Pt had previous paroxysmal atrial fibrillation with RVR during her last admission but converted to NSR with Amio and Cardizem - She was continued on Amiodarone and Cardizem at discharge. - We will resume her Amiodarone at this time. - Her BP has been somewhat low so we will hold the Cardizem. Add back as the BP allows. - Telemetry - Hold Xarelto (6) HTN (hypertension) Status: Chronic Plan: - BP running low/normal - Cardizem has been on hold - Monitor (7) Hyperlipidemia Status: Chronic Plan: - Cont. home meds (8) Tobacco use Status: Chronic Plan: - Tobacco cessation - Pt declines Nicotine patch (9) Alcohol use Status: Chronic Plan: - No alcohol since previous admission earlier this month. Problem Qualifiers (1) Anemia: Qualified Code: D62 - Acute posthemorrhagic anemia (2) Abdominal wall hematoma: Qualified Code: S30.1XXA - Abdominal wall hematoma, initial encounter Richard Lopez DO Jun 22, 2016 12:00
--- NOTE | 2016-06-22 12:55 | HHI.GIFU ---
Subjective Remarks Resting in bed. No n/v. No abdominal pain. No further bleeding noted. Family at bedside. D/W patient and family plans for egd/colonoscopy on Friday and they would like to proceed. (Dania Jcaobs) Objective Vitals I&O Vital Signs Date Time Temp Pulse Resp B/P Pulse Ox O2 Delivery O2 Flow Rate FiO2 06/22/16 12:00 97.7 90 20 114/76 93 06/22/16 10:00 97.8 105 20 119/78 96 06/22/16 09:47 97 Nasal Cannula 2.00 06/22/16 04:00 97.4 102 22 121/76 95 06/22/16 03:48 98 Nasal Cannula 3.00 06/22/16 00:00 97.2 104 22 143/88 96 06/21/16 22:00 98 Nasal Cannula 3.00 06/21/16 20:00 97.4 98 19 145/85 97 06/21/16 16:00 98.5 94 20 129/86 98 I/O 06/21/16 06/21/16 06/21/16 06/22/16 06/22/16 06/22/16 07:00 15:00 23:00 07:00 15:00 23:00 Intake Total 840 ml 402 ml 240 ml Output Total 300 ml 400 ml Balance 840 ml 102 ml -160 ml Intake Oral 840 ml 240 ml IV Total 402 ml Output Urine Total 300 ml 400 ml # Voids 3 3 # Bowel Movements 2 1 Laboratory Laboratory Tests Test 06/21/16 06/21/16 06/22/16 14:45 19:20 07:20 Urine Color LIGHT-YELLOW Urine Turbidity CLEAR Urine pH 6.5 Urine Specific [place] 1.016 Urine Protein 30 Urine Glucose (UA) 300 Urine Ketones NEG Urine Occult Blood SMALL Urine Nitrite NEG Urine Bilirubin NEG Urine Urobilinogen LESS THAN 2.0 Urine Leukocyte Esterase NEG Urine RBC LESS THAN 1 Urine WBC 1 Urine Squamous Epithelial <1 Cells Urine Granular Casts 6 Microscopic Urinalysis Comment CULT NOT INDICATED Hemoglobin 10.2 10.0 Hematocrit 30.9 30.1 White Blood Count 13.0 Red Blood Count 3.15 Mean Corpuscular Volume 95.5 Mean Corpuscular Hemoglobin 31.7 Mean Corpuscular Hemoglobin 33.2 Concent Red Cell Distribution Width 18.1 Platelet Count 82 Mean Platelet Volume 8.9 Neutrophils (%) (Auto) 95.5 Lymphocytes (%) (Auto) 1.0 Monocytes (%) (Auto) 3.4 Eosinophils (%) (Auto) 0.0 Basophils (%) (Auto) 0.1 Neutrophils # (Auto) 12.4 Lymphocytes # (Auto) 0.1 Monocytes # (Auto) 0.4 Eosinophils # (Auto) 0.0 Basophils # (Auto) 0.0 CBC Comment AUTO DIFF Differential Comment AUTO DIFF CONFIRMED Platelet Estimate LOW Platelet Morphology Comment ENLARGED Acanthocytes OCC Keratocytes OCC Sodium Level 143 Potassium Level 2.6 Chloride Level 102 Carbon Dioxide Level 32.2 Anion Gap 9 Blood Urea Nitrogen 25 Creatinine 0.89 Estimat Glomerular Filtration 62 Rate Random Glucose 188 Calcium Level 8.4 Magnesium Level 1.8 Date/Time Procedure Status Source Growth 06/20/16 20:10 Stool Occult Blood (NELDA) - Final Complete Stool Stool HEMOCCULT POSITIVE 06/19/16 23:07 Cyclospora Exam - Final Resulted Stool Stool NO CYCLOSPORA SEEN 06/19/16 23:07 Cryptosporidium Exam Resulted Stool Stool Pending 06/19/16 23:07 Stool Pus (NELDA) - Final Resulted Stool Stool RARE WBC 06/19/16 23:07 Giardia Antigen (NELDA) Resulted Stool Stool Pending 06/19/16 23:07 Stool Occult Blood (NELDA) - Final Resulted Stool Stool HEMOCCULT POSITIVE 06/19/16 23:07 - Final Complete Stool Stool NO ENTERIC PATHOGENS DETECTED BY PCR... 06/18/16 23:07 Cyclospora Exam Received Stool Stool Pending 06/18/16 23:07 Cryptosporidium Exam Received Stool Stool Pending 06/18/16 23:07 Stool Pus (NELDA) Received Stool Stool Pending 06/18/16 23:07 Giardia Antigen (NELDA) Received Stool Stool Pending 06/18/16 23:07 Stool Occult Blood (NELDA) Received Stool Stool Pending 06/18/16 23:07 Received Stool Stool Pending 06/17/16 22:15 Aerobic Blood Culture - Final Complete Blood Peripheral NO GROWTH IN 5 DAYS 06/17/16 22:15 Anaerobic Blood Culture - Final Complete Blood Peripheral NO GROWTH IN 5 DAYS Imaging Last Impressions Chest X-Ray 06/22/16 0600 Signed Impressions: Service Date/Time: Wednesday, June 22, 2016 08:51 - CONCLUSION: 1. Improving left lower lung infiltrate. 2. Small focal infiltrate right costophrenic angle. Asaf Barriga MD Abdomen/Pelvis CT 06/18/16 0000 Signed Impressions: Service Date/Time: Saturday, June 18, 2016 00:43 - CONCLUSION: 1. 8 x 5 cm left-sided rectus sheath hematoma. 2. Punctate calcific densities in the kidneys likely representing vascular calcifications. 3. Colonic diverticulosis but no evidence of acute diverticulitis. Jesse Hoff MD Physical Exam HEENT: Normocephalic; atraumatic; no jaundice. CHEST: CTA CARDIAC: RRR ABDOMEN: Soft, nondistended, nontender; no hepatosplenomegaly; bowel sounds are present in all four quadrants. EXTREMITIES: No clubbing, cyanosis, or edema. SKIN: Bruising to periarea. FISH NET STRINGER: No focal deficits; Lethargic and oriented times to self and place (Dania Jacobs) Assessment and Plan Plan ASSESSMENT: - Severe anemia. Pt was recently hospitalized and started on Xarelto for atrial fibrillation. Her last HH prior to d/c on 06/10 was 11.4/33.5. She was brought to the ER on 06/17 with HH of 6.5/19.0. Abdomen/Pelvis CT (06/18/16) revealed 1. 8 x 5 cm left-sided rectus sheath hematoma. 2. Punctate calcific densities in the kidneys likely representing vascular calcifications. 3. Colonic diverticulosis but no evidence of acute diverticulitis. The anemia was initially thought to be related to this hematoma. Had a bloody stool yesterday, no further episodes. The nurse reports that this was a formed stool, dark maroon in color. S/P 2 units PRBC. Xarelto on hold. .1. PPI Plan for EGD/Colon on Friday. - GIB, Lower. EGD/Colonoscopy (09/12/11)------> gastritis in the antrum, duodenitis in the bulb of duodenum, esophagitis in the distal esophagus, a hiatal hernia, diminutive polyp in the ascending colon, mid transverse colon, descending colon, and rectum; poor prep in the ascending colon, moderate diverticulosis in the the descending and sigmoid colon, small internal hemorrhoids, decreased sphincter tone, perianal skin tags. Recommended repeat colonoscopy in 3 years. Pathology revealed reactive gastropathy, benign duodenal mucosa without pathological abnormalities, distal esophagus squamocolumnar junction mucosa without significant pathological abnormalities, ascending colon polyp with benign polypoid colonic mucosal fold, transverse colon biopsy with tubular adenoma, descending colon with tubular adenoma, rectal polyp with hyperplastic polyp. HH stable. Plan for endoscopies on Friday. - Abdominal wall hematoma. CT with 8 x 5 cm left-sided rectus sheath hematoma. - Atrial fibrillation. Xarelto on hold. - HTN, COPD, Hyperlipidemia, PVD, per primary. PLAN: - Plan for egd/colonoscopy on Friday - Obtain consents - Clear liquids on Friday - NPO after MN Friday night - Golytely prep Friday - HH now - Monitor labs - Transfuse as necessary - Cont. PPI - Supportive care - Further recommendations to follow based on results of above - Pt seen and examined by Dr. Bernabe and myself and this note is written on his behalf (Dania Jacobs) Physician Comments Patient seen and examined Agree with above Continue with current supportive care Monitor labs EGD colonoscopy on Friday (Perry Bernabe MD) Dania Jacobs Jun 22, 2016 12:55 Perry Bernabe MD Jun 22, 2016 17:31
[2016-06-22] MEDS: PRAVASTATIN SOD 40 MG TAB PO SCH (21:43)
[2016-06-23] VITALS (8 sets, daily range): BP systolic 102–161; BP diastolic 59–97; PULSE 81–102; RESP 18–20; TEMP 96.9–97.1; O2SAT 93–99
[2016-06-23] MEDS: methylPREDNISolone SOD SUCC 125 MG/2 ML VIAL IV PUSH SCH ×2 (00:05→05:07)
[2016-06-23] MEDS: PIPERACIL-TAZO 3.375 GM PREMIX 50 ML IV SCH ×3 (02:48→17:00)
[2016-06-23] MEDS: RESP: ALBUTEROL 2.5 MG/IPRATROPIUM 0.5 MG NEB (SCH) NEB ×4 (03:21→21:16)
[2016-06-23] MEDS: RESP: ACETYLCYSTEINE 20% 30 ML NEB NEB SCH ×2 (03:21→09:14)
[2016-06-23 08:48] LABS: AUTOMATED NEUTROPHIL # 11.5 TH/MM3 (1.8-7.7); HEMATOCRIT 28.4 % (35.0-46.0); LYMPH % 1.1 % (9.0-44.0); LYMPHOCYTE # 0.1 TH/MM3 (1.0-4.8); MEAN CORPUSCULAR HEMOGLOBIN 32.1 PG (27.0-34.0); MEAN CORPUSCULAR HGB CONC 33.8 % (32.0-36.0); MONO % 4.1 % (0.0-8.0); NEUT % 94.8 % (16.0-70.0); PLATELET COUNT 62 TH/MM3 (150-450); RED BLOOD COUNT 2.99 MIL/MM3 (4.00-5.30); RED CELL DISTRIBUTION WIDTH 17.2 % (11.6-17.2); WHITE BLOOD COUNT 12.2 TH/MM3 (4.0-11.0)
[2016-06-23 08:54] LABS: HEMO FLAGS AUTO DIFF
[2016-06-23 09:27] LABS: BANDS 13 % (0-6); NEUTROPHIL # MANUAL DIFF 10.7 TH/MM3 (1.8-7.7); POLYS (SEG NEUTROPHILS) 75 % (16-70); WBC DIFF SAMPLE 100
[2016-06-23 09:28] LABS: ACANTHOCYTES OCC (NORMAL); OVALOCYTES 1+ (NORMAL); PLATELET ESTIMATE SMEAR LOW (NORMAL); PLATELET MORPHOLOGY NORMAL (NORMAL); SCAN/DIFF FINAL DIFF MANUAL; TOXIC GRANULATION 1+ (NORMAL)
[2016-06-23 09:49] LABS: POTASSIUM 3.1 MEQ/L (3.5-5.1)
[2016-06-23] MEDS: NYSTATIN SUSP 500,000 U/5 ML CUP SWISH-SWAL SCH ×4 (09:55→20:51)
[2016-06-23] MEDS: MEGESTROL ACETATE 40 MG TAB PO SCH ×2 (09:55→20:51)
[2016-06-23] MEDS: CETIRIZINE HCL 10 MG TAB PO SCH (09:55)
[2016-06-23] MEDS: PANTOPRAZOLE SOD 20 MG DELAYED RELEASE TAB PO SCH (09:55)
[2016-06-23] MEDS: UMECLIDINIUM 62.5 MCG/VILANTEROL 25 MCG INHALER INH SCH (09:55)
[2016-06-23] MEDS: SODIUM CHLORIDE 0.9% FLUSH 5 ML FLUSH IVF SCH ×2 (09:55→20:51)
[2016-06-23] MEDS: AMIODARONE 200 MG TAB PO SCH (09:55)
[2016-06-23 10:03] LABS: BICARBONATE 32.2 MEQ/L (21.0-32.0); MAGNESIUM 1.6 MG/DL (1.5-2.5)
--- NOTE | 2016-06-23 10:26 | HHI.GIFU ---
Subjective Remarks Pt had a formed nonbloody BM this morning. She is tolerating her diet She does not feel more SOB, some sputum production Pt is on 2L via NC (Saritha Marie) Objective Vitals I&O Vital Signs Date Time Temp Pulse Resp B/P Pulse Ox O2 Delivery O2 Flow Rate FiO2 06/23/16 09:16 94 Nasal Cannula 2.00 06/23/16 08:30 96.9 92 20 147/97 93 06/23/16 04:00 97.0 84 18 134/86 96 06/23/16 00:00 97.1 102 20 102/59 96 06/22/16 21:03 96 Nasal Cannula 2.00 06/22/16 20:00 97.0 93 19 127/80 96 06/22/16 16:15 97.2 96 20 121/72 96 06/22/16 12:00 97.7 90 20 114/76 93 I/O 06/22/16 06/22/16 06/22/16 06/23/16 06/23/16 06/23/16 07:00 15:00 23:00 07:00 15:00 23:00 Intake Total 240 ml 600 ml 480 ml 240 ml Output Total 400 ml 300 ml Balance -160 ml 600 ml 180 ml 240 ml Intake Oral 240 ml 600 ml 480 ml 240 ml Output Urine Total 400 ml 300 ml # Voids 2 1 2 1 # Bowel Movements 1 1 Laboratory Laboratory Tests Test 06/22/16 06/23/16 17:29 07:50 Potassium Level 3.4 3.1 White Blood Count 12.2 Red Blood Count 2.99 Hemoglobin 9.6 Hematocrit 28.4 Mean Corpuscular Volume 95.0 Mean Corpuscular Hemoglobin 32.1 Mean Corpuscular Hemoglobin 33.8 Concent Red Cell Distribution Width 17.2 Platelet Count 62 Mean Platelet Volume 9.6 Neutrophils (%) (Auto) 94.8 Lymphocytes (%) (Auto) 1.1 Monocytes (%) (Auto) 4.1 Eosinophils (%) (Auto) 0.0 Basophils (%) (Auto) 0.0 Neutrophils # (Auto) 11.5 Lymphocytes # (Auto) 0.1 Monocytes # (Auto) 0.5 Eosinophils # (Auto) 0.0 Basophils # (Auto) 0.0 CBC Comment AUTO DIFF Differential Total Cells 100 Counted Neutrophils % (Manual) 75 Band Neutrophils % 13 Lymphocytes % 5 Monocytes % 7 Neutrophils # (Manual) 10.7 Differential Comment FINAL DIFF MANUAL Toxic Granulation 1+ Platelet Estimate LOW Platelet Morphology Comment NORMAL Ovalocytes 1+ Acanthocytes OCC Sodium Level 142 Chloride Level 101 Carbon Dioxide Level 32.2 Anion Gap 9 Blood Urea Nitrogen 24 Creatinine 0.82 Estimat Glomerular Filtration 68 Rate Random Glucose 139 Calcium Level 8.0 Magnesium Level 1.6 Date/Time Procedure Status Source Growth 06/20/16 20:10 Stool Occult Blood (NELDA) - Final Complete Stool Stool HEMOCCULT POSITIVE 06/19/16 23:07 Cyclospora Exam - Final Resulted Stool Stool NO CYCLOSPORA SEEN 06/19/16 23:07 Cryptosporidium Exam Resulted Stool Stool Pending 06/19/16 23:07 Stool Pus (NELDA) - Final Resulted Stool Stool RARE WBC 06/19/16 23:07 Giardia Antigen (NELDA) Resulted Stool Stool Pending 06/19/16 23:07 Stool Occult Blood (NELDA) - Final Resulted Stool Stool HEMOCCULT POSITIVE 06/19/16 23:07 - Final Complete Stool Stool NO ENTERIC PATHOGENS DETECTED BY PCR... 06/18/16 23:07 Cyclospora Exam Received Stool Stool Pending 06/18/16 23:07 Cryptosporidium Exam Received Stool Stool Pending 06/18/16 23:07 Stool Pus (NELDA) Received Stool Stool Pending 06/18/16 23:07 Giardia Antigen (NELDA) Received Stool Stool Pending 06/18/16 23:07 Stool Occult Blood (NELDA) Received Stool Stool Pending 06/18/16 23:07 Received Stool Stool Pending Physical Exam HEENT: Normocephalic; atraumatic; no jaundice. CHEST: Coarse breath sounds in upper air, improves slightly with cough. Diminished at the bases. CARDIAC: RRR ABDOMEN: +BS, soft, nondistended, nontender EXTREMITIES: No clubbing, cyanosis, or edema. SKIN: Bruising to periarea. DEBATE DIRECTOR: No focal deficits (Saritha Marie) Assessment and Plan Plan ASSESSMENT: - Severe anemia. Pt was recently hospitalized and started on Xarelto for atrial fibrillation. Her last HH prior to d/c on 06/10 was 11.4/33.5. She was brought to the ER on 06/17 with HH of 6.5/19.0. Abdomen/Pelvis CT (06/18/16) revealed 1. 8 x 5 cm left-sided rectus sheath hematoma. 2. Punctate calcific densities in the kidneys likely representing vascular calcifications. 3. Colonic diverticulosis but no evidence of acute diverticulitis. The anemia was initially thought to be related to this hematoma. Had a bloody stool yesterday, no further episodes. The nurse reports that this was a formed stool, dark maroon in color. S/P 2 units PRBC. Xarelto on hold. .0.1. PPI Plan for EGD/Colon on Friday. - GIB, Lower. EGD/Colonoscopy (09/12/11)------> gastritis in the antrum, duodenitis in the bulb of duodenum, esophagitis in the distal esophagus, a hiatal hernia, diminutive polyp in the ascending colon, mid transverse colon, descending colon, and rectum; poor prep in the ascending colon, moderate diverticulosis in the the descending and sigmoid colon, small internal hemorrhoids, decreased sphincter tone, perianal skin tags. Recommended repeat colonoscopy in 3 years. Pathology revealed reactive gastropathy, benign duodenal mucosa without pathological abnormalities, distal esophagus squamocolumnar junction mucosa without significant pathological abnormalities, ascending colon polyp with benign polypoid colonic mucosal fold, transverse colon biopsy with tubular adenoma, descending colon with tubular adenoma, rectal polyp with hyperplastic polyp. HH stable. Plan for endoscopies on Friday. - Abdominal wall hematoma. CT with 8 x 5 cm left-sided rectus sheath hematoma. - Atrial fibrillation. Xarelto on hold. - HTN, COPD, Hyperlipidemia, PVD, per primary. PLAN: - EGD/colonoscopy tomorrow - Consents obtained - Clear liquids - Golytely - NPO after MN except meds - Monitor H/H - Transfuse as necessary - Cont. PPI - Supportive care - Further recommendations based on results of above - Pt seen and examined by Dr. Bernabe and myself and this note is written on his behalf (Saritha Marie) Physician Comments Patient seen and examined Agree with above Continue with current supportive care Monitor labs Plan for an EGD and a colonoscopy tomorrow (Perry Bernabe MD) Saritha Marie Jun 23, 2016 10:26 Perry Bernabe MD Jun 23, 2016 16:16
[2016-06-23] MEDS ORDERED: POTASSIUM CHLORIDE 20 MEQ CONTROLLED RELEASE TAB PO ONE (12:00)
--- NOTE | 2016-06-23 12:01 | HHI.PR ---
Subjective Remarks No new complaints. Pt still SOB with exertion. Pt with generalized weakness. Objective Vitals Vital Signs Date Time Temp Pulse Resp B/P Pulse Ox O2 Delivery O2 Flow Rate FiO2 06/23/16 09:16 94 Nasal Cannula 2.00 06/23/16 08:30 96.9 92 20 147/97 93 06/23/16 04:00 97.0 84 18 134/86 96 06/23/16 00:00 97.1 102 20 102/59 96 06/22/16 21:03 96 Nasal Cannula 2.00 06/22/16 20:00 97.0 93 19 127/80 96 06/22/16 16:15 97.2 96 20 121/72 96 06/22/16 12:00 97.7 90 20 114/76 93 06/22/16 06/22/16 06/23/16 15:00 23:00 07:00 Intake Total 600 ml 480 ml Output Total 300 ml Balance 600 ml 180 ml Intake Oral 600 ml 480 ml Output Urine Total 300 ml # Voids 2 1 2 # Bowel Movements 1 Result Diagram: 06/23/16 0750 06/23/16 0750 Imaging Last Impressions Chest X-Ray 06/20/16 0600 Signed Impressions: Service Date/Time: June 06:54 - CONCLUSION: Increasing consolidative changes in the left base. Fawad Gray MD FACR Abdomen/Pelvis CT 06/18/16 0000 Signed Impressions: Service Date/Time: Saturday, June 18, 2016 00:43 - CONCLUSION: 1. 8 x 5 cm left-sided rectus sheath hematoma. 2. Punctate calcific densities in the kidneys likely representing vascular calcifications. 3. Colonic diverticulosis but no evidence of acute diverticulitis. Jesse Hoff MD Objective Remarks General: NAD, AAOx3 ENT: White plaquing on tongue --> improving Chest: Diminished air movement worse at the bases bilaterally Cardiac: Regular Abd: +BS, soft ND/NT Ext: No edema A/P Problem List: (1) Anemia Status: Acute Plan: - comgmt with GI - Pt admitted with an acute drop in here H/H to Hgb 6.5/Hct 19.0. (06/17/16) - Prior to his previous discharge her last labs on 06/10/16 noted Hgb 11.4. - Pt was transfused with 2 units PRBCs and repeat labs noted an improvement in her H/H - Pt had a CT abd/pelvis which revealed an 8 x 5cm left sided rectus sheath hematoma. - Xarelto has been stopped - She was noted to be Hemoccult positive and pt is nor reporting maroon colored stool. - Hg (06/23/16) 9.6 - repeat CBC in AM - Pt seen by GI & planned for EGD/Colonoscopy 06/24/16 - Supportive care - PT - Pt will need to return to SNF at the end of this hospitalization - Anticipate d/c to SNF on Friday or Friday - DVT prophylaxis with SCDs (2) Abdominal wall hematoma Status: Acute Plan: - See above. (3) COPD (chronic obstructive pulmonary disease) Status: Chronic Plan: - Pt recently admitted with a COPD exacerbation/bronchitis. - She was treated with Solumedrol, Duonebs and antibiotics. - Pt ws discharged to rehab on a taper of prednisone, duonebs and Levaquin x 2 days. - Pt was noted to have leukocytosis at admission, this may be related to the steroids. - CXR at admission noted a possible small infiltrate at the right costophrenic angle but pt feels that she has been symptomatically improving since her last hospitalization. She was feeling somewhat more SOB prior to this admission which was likely due to her anemia. This has improved with her blood transfusion. - Cont. Duonebs Q6H WA - Pt with increased O2 requirements overnight on 06/19, oxygen now down to 2L by NC - Repeat CXR (06/20) with increasing consolidative change in the left base. - repeat CXR in AM 06/23 - Solu-Medrol --> change to PO prednisone - Mucomyst - Zosyn (06/20- present) - IS - Acapella (4) Thrush Status: Acute Plan: - Nystatin swish and swallow (5) Paroxysmal atrial fibrillation with rapid ventricular response Status: Resolved Plan: - Pt had previous paroxysmal atrial fibrillation with RVR during her last admission but converted to NSR with Amio and Cardizem - She was continued on Amiodarone and Cardizem at discharge. - We will resume her Amiodarone at this time. - Her BP has been somewhat low so we will hold the Cardizem. Add back as the BP allows. - Telemetry - Hold Xarelto (6) HTN (hypertension) Status: Chronic Plan: - BP running low/normal - Cardizem has been on hold - Monitor (7) Hyperlipidemia Status: Chronic Plan: - Cont. home meds (8) Tobacco use Status: Chronic Plan: - Tobacco cessation - Pt declines Nicotine patch (9) Alcohol use Status: Chronic Plan: - No alcohol since previous admission earlier this month. Problem Qualifiers (1) Anemia: Qualified Code: D62 - Acute posthemorrhagic anemia (2) Abdominal wall hematoma: Qualified Code: S30.1XXA - Abdominal wall hematoma, initial encounter Richard Lopez DO Jun 23, 2016 12:01
[2016-06-23] MEDS ORDERED: PEG (High)/E-LYTE SOLN 4000 ML BTL PO ONE (16:00)
[2016-06-23] MEDS: PRAVASTATIN SOD 40 MG TAB PO SCH (20:51)
[2016-06-23] MEDS: predniSONE 10 MG TAB PO SCH (20:51)
[2016-06-24] VITALS (7 sets, daily range): BP systolic 118–147; BP diastolic 73–116; PULSE 79–96; RESP 16–17; TEMP 97–98.1; O2SAT 94–100
[2016-06-24] MEDS: PIPERACIL-TAZO 3.375 GM PREMIX 50 ML IV SCH ×3 (02:18→18:22)
[2016-06-24] MEDS: RESP: ALBUTEROL 2.5 MG/IPRATROPIUM 0.5 MG NEB (SCH) NEB ×4 (03:47→21:22)
[2016-06-24 07:12] LABS: AUTOMATED NEUTROPHIL # 10.6 TH/MM3 (1.8-7.7); BASOPHIL % 0.1 % (0.0-2.0); HEMATOCRIT 28.4 % (35.0-46.0); LYMPH % 2.7 % (9.0-44.0); LYMPHOCYTE # 0.3 TH/MM3 (1.0-4.8); MEAN CELL VOLUME 95.4 FL (80.0-100.0); MEAN CORPUSCULAR HEMOGLOBIN 31.8 PG (27.0-34.0); MEAN CORPUSCULAR HGB CONC 33.3 % (32.0-36.0); MONO % 5.1 % (0.0-8.0); NEUT % 92.1 % (16.0-70.0); PLATELET COUNT 55 TH/MM3 (150-450); RED BLOOD COUNT 2.97 MIL/MM3 (4.00-5.30); RED CELL DISTRIBUTION WIDTH 16.9 % (11.6-17.2); WHITE BLOOD COUNT 11.5 TH/MM3 (4.0-11.0)
[2016-06-24 07:15] LABS: HEMO FLAGS AUTO DIFF
[2016-06-24 07:18] LABS: BICARBONATE 33.2 MEQ/L (21.0-32.0); MAGNESIUM 1.5 MG/DL (1.5-2.5)
[2016-06-24 07:34] LABS: POTASSIUM 2.5 MEQ/L (3.5-5.1)
[2016-06-24] MEDS ORDERED: POTASSIUM CHLORIDE 20 MEQ CONTROLLED RELEASE TAB PO ONE ×2 (08:00→12:00)
[2016-06-24] MEDS ORDERED: POTASSIUM CHLOR 20 MEQ PREMIX 100 ML IV ONE (08:00)
[2016-06-24 08:10] LABS: ACANTHOCYTES OCC (NORMAL); KERATOCYTES OCC (NORMAL)
[2016-06-24 08:11] LABS: PLATELET ESTIMATE SMEAR LOW (NORMAL); PLATELET MORPHOLOGY NORMAL (NORMAL); SCAN/DIFF AUTO DIFF CONFIRMED
[2016-06-24] MEDS: PANTOPRAZOLE SOD 20 MG DELAYED RELEASE TAB PO SCH (08:35)
[2016-06-24] MEDS: NYSTATIN SUSP 500,000 U/5 ML CUP SWISH-SWAL SCH ×4 (08:35→21:31)
[2016-06-24] MEDS: SODIUM CHLORIDE 0.9% FLUSH 5 ML FLUSH IVF SCH ×2 (08:36→21:32)
[2016-06-24] MEDS: predniSONE 10 MG TAB PO SCH ×2 (08:36→21:32)
[2016-06-24] MEDS: AMIODARONE 200 MG TAB PO SCH (08:36)
[2016-06-24] MEDS: CETIRIZINE HCL 10 MG TAB PO SCH (08:36)
[2016-06-24] MEDS: UMECLIDINIUM 62.5 MCG/VILANTEROL 25 MCG INHALER INH SCH (08:36)
[2016-06-24] MEDS: fentaNYL 50 MCG/HR PATCH T-DERMAL SCH (08:45)
[2016-06-24] MEDS: REMOVE OLD DURAGESIC (FENTANYL) PATCH TD SCH (08:47)
--- NOTE | 2016-06-24 09:51 | RADRPT ---
EXAM DATE/TIME: 06/24/2016 09:01 [place] COMPARISON: CHEST PA & LAT, June 22, 2016, 8:51. INDICATIONS : Short of breath, evaluate pneumonia MEDICAL HISTORY : Chronic obstructive pulmonary disease. SURGICAL HISTORY : None. ENCOUNTER: Subsequent ACUITY: 1 week PAIN SCORE: 0/10 LOCATION: Bilateral chest FINDINGS: PA and lateral views of the thorax demonstrate heart normal in size. There is prominence of the aorti c root suggesting ascending aortic aneurysm. This is stable upper to previous exam. There is diffuse infiltrate and interstitial fibrotic change throughout the lung bases. There are minimal basilar effu sions. These changes are similar to the previous exam dated 06/22/16. CONCLUSION: COPD changes with patchy areas of basilar infiltrate left greater than right concerning for pneumonia . Changes are similar to previous exam dated 06/22/16. Sabino Gray MD on June 24, 2016 at 9:47 Board Certified Radiologist. This report was verified electronically.
--- NOTE | 2016-06-24 10:05 | HHI.PR ---
Subjective Remarks breathing better. no complaints Objective Vitals heart reg lung cta abd left abdomen firm over rectus muscle left flank ecchymosis ext no edema Vital Signs Date Time Temp Pulse Resp B/P Pulse Ox O2 Delivery O2 Flow Rate FiO2 06/24/16 09:47 79 16 129/89 98 06/24/16 08:54 94 Nasal Cannula 2.00 06/24/16 08:45 98.1 79 16 129/87 98 06/24/16 04:00 97.0 80 17 118/73 97 06/24/16 00:00 97.6 96 17 129/86 98 06/23/16 20:00 97.0 81 18 142/75 96 06/23/16 16:07 98 Nasal Cannula 2.00 06/23/16 16:00 97.1 83 20 108/61 99 06/23/16 12:28 97.0 96 20 161/80 96 06/23/16 06/23/16 06/24/16 15:00 23:00 07:00 Intake Total 360 ml 480 ml Balance 360 ml 480 ml Intake Oral 360 ml 480 ml # Voids 2 3 # Bowel Movements 2 2 4 Result Diagram: 06/24/16 0615 06/24/16 0615 Imaging Last Impressions Chest X-Ray 06/20/16 0600 Signed Impressions: Service Date/Time: June 06:54 - CONCLUSION: Increasing consolidative changes in the left base. Fawad Gray MD FACR Abdomen/Pelvis CT 06/18/16 0000 Signed Impressions: Service Date/Time: Saturday, June 18, 2016 00:43 - CONCLUSION: 1. 8 x 5 cm left-sided rectus sheath hematoma. 2. Punctate calcific densities in the kidneys likely representing vascular calcifications. 3. Colonic diverticulosis but no evidence of acute diverticulitis. Jesse Hoff MD A/P Problem List: (1) Anemia Status: Acute Plan: acute blood loss anemia. related to acute left rectus abdomen muscle hematoma also pt with gib. She was on anticoagulation for afib. s/p 2 units PRBCs Pt had a CT abd/pelvis which revealed an 8 x 5cm left sided rectus sheath hematoma. - Pt seen by GI & planned for EGD/Colonoscopy today - Supportive care - PT - Pt will need to return to SNF at the end of this hospitalization - DVT prophylaxis with SCDs - anticoagulation stopped. will plan for just asa once stable. (2) Abdominal wall hematoma Status: Acute Plan: - See above. (3) COPD (chronic obstructive pulmonary disease) Status: Acute Plan: - Pt recently admitted with a COPD exacerbation/bronchitis. - She was treated with Solumedrol, Duonebs and antibiotics. - Pt ws discharged to rehab on a taper of prednisone, duonebs and Levaquin x 2 days. - Pt was noted to have leukocytosis at admission, this may be related to the steroids. - CXR at admission noted a possible small infiltrate at the right costophrenic angle but pt feels that she has been symptomatically improving since her last hospitalization. She was feeling somewhat more SOB prior to this admission which was likely due to her anemia. This has improved with her blood transfusion. - Cont. Duonebs Q6H WA - oxygen - cont abx - cont pred. taper - IS - Acapella (4) Thrush Status: Acute Plan: - Nystatin swish and swallow (5) Paroxysmal atrial fibrillation with rapid ventricular response Status: Resolved Plan: - Pt had previous paroxysmal atrial fibrillation with RVR during her last admission but converted to NSR with Amio and Cardizem - She was continued on Amiodarone and Cardizem at discharge. - We will resume her Amiodarone at this time. - Her BP has been somewhat low so we will hold the Cardizem. Add back as the BP allows. - Telemetry - Hold Xarelto (6) HTN (hypertension) Status: Chronic Plan: - BP running low/normal - Cardizem has been on hold - Monitor (7) Hyperlipidemia Status: Chronic Plan: - Cont. home meds (8) Tobacco use Status: Chronic Plan: - Tobacco cessation - Pt declines Nicotine patch (9) Alcohol use Status: Chronic Plan: - No alcohol since previous admission earlier this month. Problem Qualifiers (1) Anemia: Qualified Code: D62 - Acute posthemorrhagic anemia (2) Abdominal wall hematoma: Qualified Code: S30.1XXA - Abdominal wall hematoma, initial encounter Ty Combs MD Jun 24, 2016 10:05
--- NOTE | 2016-06-24 14:17 | EKG ---
Date Performed: 06/24/2016 Time Performed: 11:19:32 PTAGE: 76 years EKG: Sinus rhythm LEFT BUNDLE BRANCH BLOCK ABNORMAL ECG PREVIOUS TRACING : 06/17/2016 20.37 DOCTOR: Magan Montiel Interpretating Date/Time 06/24/2016 14:15:42
--- NOTE | 2016-06-24 14:58 | GIPROC ---
[facility] [address] [facility]. [facility], [address] EGD PROCEDURE REPORT EXAM DATE: 06/24/2016 PATIENT NAME: Brooklynn Casas MR #: [id number] BIRTHDATE: 1940 ATTENDING: Melissa Sinha MD ORDER #: [id number] DOORKEEPER: Adam Haynes and Linda Huggins STATUS: inpatient INDICATIONS: The patient is a 76 yr old female here for an EGD due to anemia, gi bleeding PROCEDURE PERFORMED: EGD w/ biopsy MEDICATIONS: None and Per Anesthesia. TOPICAL ANESTHETIC: none CONSENT: The patient understands the risks and benefits of the procedure and understands that these risks include, but are not limited to: sedation, allergic reaction, infection, perforation and/or bleeding. Alternative means of evaluation and treatment include, among others: physical exam, x-rays, and/or surgical intervention. The patient elects to proceed with this endoscopic procedure. medical equipment was checked for proper function. Hand hygiene and appropriate measures for infection prevention was taken. After the risks, benefits and alternatives of the procedure were thoroughly explained, Informed consent was verified, confirmed and timeout was successfully executed by the treatment team. The patient was anesthetized with topical anesthesia and the EC-[id number] (Pedi C) endoscope was introduced through the mouth and advanced to the second portion of the duodenum. Retroflexed views revealed a hiatal hernia The gastroscope was then slowly withdrawn and removed. Duodenitis second portion-biopsy esophagitis distal esophagus-biopsy gastritis antrum-biopsy. ADVERSE EVENTS: There were no complications. IMPRESSIONS: 1. Duodenitis second portion-biopsy esophagitis distal esophagus-biopsy gastritis antrum-biopsy 2. Retroflexed views revealed a hiatal hernia RECOMMENDATIONS: 1. Await biopsy results. Biopsy results will not be ready for 7-10 days. If you don't hear from us in two weeks, call our office for biopsy results. 2. Anti-reflux regimen 3. Continue PPI 4. Avoid NSAIDS PATIENT CONDITION: stable DISPOSITION: Inpatient REPEAT EXAM: EGD pending biopsy results Melissa Sinha MD eSigned: Melissa Sinha MD 06/24/2016 2:58 PM cc:
--- NOTE | 2016-06-24 15:01 | GIPROC ---
[facility] [address] [facility]. [facility], [address] COLONOSCOPY PROCEDURE REPORT EXAM DATE: 06/24/2016 PATIENT NAME: Brooklynn Casas MR #: [id number] BIRTHDATE: 1940 ENDOSCOPIST: Melissa Sinha MD ORDER #: [id number] BRAKE OPERATOR SHEET METAL: Adam Haynes and Linda Huggins STATUS: inpatient INDICATIONS: The patient is a 76 yr old female here for a colonoscopy due to anemia, gi bleeding PROCEDURE PERFORMED: Colonoscopy, incomplete Colonoscopy with biopsy MEDICATIONS: None and Per Anesthesia. PREP QUALITY: poor PREP TYPE:GoLytely ESTIMATED BLOOD LOSS: None CONSENT: The patient understands the risks and benefits of the procedure and understands that these risks include, but are not limited to: sedation, allergic reaction, infection, perforation and/or bleeding. Alternative means of evaluation and treatment include, among others: physical exam, x-rays, and/or surgical intervention. The patient elects to proceed with this endoscopic procedure. medical equipment was checked for proper function. Hand hygiene and appropriate measures for infection prevention was taken. After the risks, benefits and alternatives of the procedure were thoroughly explained, Informed consent was verified, confirmed and timeout was successfully executed by the treatment team. A digital exam revealed external hemorrhoids and revealed decreased sphincter tone The Pentax EC-[id number] endoscope was introduced through the anus and advanced to the descending colon. The instrument was then slowly withdrawn as the colon was fully examined. COLON FINDINGS: Ulcers in rectum-biopsy solid stool in descending could not be washed procedure terminated. Retroflexed views revealed internal hemorrhoids and Retroflexed views revealed small internal hemorrhoids The scope was then completely withdrawn from the patient and the procedure terminated. ADVERSE EVENTS: There were no complications. IMPRESSIONS: 1. Ulcers in rectum-biopsy solid stool in descending could not be washed procedure terminated 2. Retroflexed views revealed internal hemorrhoids 3. Retroflexed views revealed small internal hemorrhoids 4. Revealed external hemorrhoids 5. Revealed decreased sphincter tone RECOMMENDATIONS: 1. Await biopsy results. Biopsy results will not be ready for 7-10 days. If you don't hear from us in two weeks, call our office for results. 2. Benefiber 2 tsp daily 3. Probiotics from any [facility] or health food store 4. Yearly rectal exams 5. Hydrocortisone supp colon in am with better prep clear liquid diet RECALL: Return 1 day Colonoscopy Melissa Sinha MD eSigned: Melissa Sinha MD 06/24/2016 3:01 PM cc: PATIENT NAME: Brooklynn Casas MR#: [id number]
[2016-06-24] MEDS: MEGESTROL ACETATE 40 MG TAB PO SCH ×2 (15:22→21:32)
[2016-06-24] MEDS ORDERED: PROPOFOL 200 MG/20 ML AMP IV ONE (15:59)
[2016-06-24] MEDS: PRAVASTATIN SOD 40 MG TAB PO SCH (21:31)
[2016-06-25] VITALS (8 sets, daily range): BP systolic 92–155; BP diastolic 51–89; PULSE 76–88; RESP 16–20; TEMP 97–98.5; O2SAT 94–99
[2016-06-25] MEDS: PIPERACIL-TAZO 3.375 GM PREMIX 50 ML IV SCH ×3 (02:17→18:16)
[2016-06-25] MEDS: RESP: ALBUTEROL 2.5 MG/IPRATROPIUM 0.5 MG NEB (SCH) NEB ×2 (04:19→07:40)
[2016-06-25] MEDS ORDERED: MAGNESIUM CITRATE SOLN 300 ML BTL PO ONE (06:45)
[2016-06-25 07:21] LABS: BICARBONATE 31.8 MEQ/L (21.0-32.0); POTASSIUM 3.6 MEQ/L (3.5-5.1)
[2016-06-25] MEDS: predniSONE 10 MG TAB PO SCH ×2 (08:07→23:00)
[2016-06-25] MEDS: AMIODARONE 200 MG TAB PO SCH (08:08)
[2016-06-25] MEDS: MEGESTROL ACETATE 40 MG TAB PO SCH ×2 (08:08→23:00)
[2016-06-25] MEDS: PANTOPRAZOLE SOD 20 MG DELAYED RELEASE TAB PO SCH (08:08)
[2016-06-25] MEDS: CETIRIZINE HCL 10 MG TAB PO SCH (08:08)
[2016-06-25] MEDS: SODIUM CHLORIDE 0.9% FLUSH 5 ML FLUSH IVF SCH ×2 (08:09→23:05)
[2016-06-25] MEDS: UMECLIDINIUM 62.5 MCG/VILANTEROL 25 MCG INHALER INH SCH (08:09)
[2016-06-25] MEDS: NYSTATIN SUSP 500,000 U/5 ML CUP SWISH-SWAL SCH ×4 (08:11→23:00)
--- NOTE | 2016-06-25 11:28 | HHI.PR ---
Subjective Remarks doing ok. eager for snf return. Objective Vitals heart reg lung good air entry abd s/nt ext no edema Vital Signs Date Time Temp Pulse Resp B/P Pulse Ox O2 Delivery O2 Flow Rate FiO2 06/25/16 08:00 98.5 82 16 124/83 97 06/25/16 07:41 99 Nasal Cannula 2.50 06/25/16 04:00 97.0 86 16 121/89 96 06/25/16 00:00 97.0 88 16 110/81 94 06/24/16 20:00 97.8 79 16 119/78 99 06/24/16 16:00 97.6 91 16 147/116 100 136/100 140/95 06/24/16 15:15 82 16 157/88 97 06/24/16 15:05 78 16 155/89 97 06/24/16 14:54 97.8 80 16 143/81 96 06/24/16 06/24/16 06/25/16 15:00 23:00 07:00 Intake Total 925 ml 120 ml 60 ml Output Total 725 ml 550 ml Balance 925 ml -605 ml -490 ml Intake Oral 120 ml IV Total 125 ml 60 ml Other 800 ml Output Urine Total 725 ml 550 ml # Voids 1 Result Diagram: 06/24/16 0615 06/25/16 0613 Imaging Last Impressions Chest X-Ray 06/20/16 0600 Signed Impressions: Service Date/Time: June 06:54 - CONCLUSION: Increasing consolidative changes in the left base. Fawad Gray MD FACR Abdomen/Pelvis CT 06/18/16 0000 Signed Impressions: Service Date/Time: Saturday, June 18, 2016 00:43 - CONCLUSION: 1. 8 x 5 cm left-sided rectus sheath hematoma. 2. Punctate calcific densities in the kidneys likely representing vascular calcifications. 3. Colonic diverticulosis but no evidence of acute diverticulitis. Jesse Hoff MD A/P Problem List: (1) Anemia Status: Acute Plan: acute blood loss anemia. related to acute left rectus abdomen muscle hematoma also pt with gib. She was on anticoagulation for afib. s/p 2 units PRBCs Pt had a CT abd/pelvis which revealed an 8 x 5cm left sided rectus sheath hematoma. egd 06/24..esophagitis/gastritis - Supportive care - PT - colonoscopy today. - Pt will need to return to SNF at the end of this hospitalization - DVT prophylaxis with SCDs - anticoagulation stopped. will plan for just asa once stable. (2) Abdominal wall hematoma Status: Acute Plan: - See above. (3) COPD (chronic obstructive pulmonary disease) Status: Acute Plan: - Pt recently admitted with a COPD exacerbation/bronchitis. - She was treated with Solumedrol, Duonebs and antibiotics. - Pt ws discharged to rehab on a taper of prednisone, duonebs and Levaquin x 2 days. - Pt was noted to have leukocytosis at admission, this may be related to the steroids. - CXR at admission noted a possible small infiltrate at the right costophrenic angle but pt feels that she has been symptomatically improving since her last hospitalization. She was feeling somewhat more SOB prior to this admission which was likely due to her anemia. This has improved with her blood transfusion. - Cont. Duonebs Q6H WA - oxygen - cont abx - cont pred. taper - IS - Acapella (4) Thrush Status: Acute Plan: - Nystatin swish and swallow (5) Paroxysmal atrial fibrillation with rapid ventricular response Status: Resolved Plan: - Pt had previous paroxysmal atrial fibrillation with RVR during her last admission but converted to NSR with Amio and Cardizem - She was continued on Amiodarone and Cardizem at discharge. - We will resume her Amiodarone at this time. - Her BP has been somewhat low so we will hold the Cardizem. Add back as the BP allows. - Telemetry - Hold Xarelto (6) HTN (hypertension) Status: Chronic Plan: - BP running low/normal - Cardizem has been on hold - Monitor (7) Hyperlipidemia Status: Chronic Plan: - Cont. home meds (8) Tobacco use Status: Chronic Plan: - Tobacco cessation - Pt declines Nicotine patch (9) Alcohol use Status: Chronic Plan: - No alcohol since previous admission earlier this month. Problem Qualifiers (1) Anemia: Qualified Code: D62 - Acute posthemorrhagic anemia (2) Abdominal wall hematoma: Qualified Code: S30.1XXA - Abdominal wall hematoma, initial encounter Ty Combs MD Jun 25, 2016 11:28
[2016-06-25] MEDS ORDERED: PHENYLEPH/NS 1000 MCG/10 ML SYR IV ONE (12:00)
[2016-06-25] MEDS ORDERED: PROPOFOL 200 MG/20 ML AMP IV ONE (14:46)
--- NOTE | 2016-06-25 15:31 | GIPROC ---
[facility] [address] [facility]. [facility], [address] COLONOSCOPY PROCEDURE REPORT EXAM DATE: 06/25/2016 PATIENT NAME: Brooklynn Casas MR #: [id number] BIRTHDATE: 1940 ENDOSCOPIST: Melissa Sinha MD ORDER #: [id number] SURFACE GRINDER TENDER: Raza Saab and Katrin Mak STATUS: inpatient INDICATIONS: The patient is a 76 yr old female here for a colonoscopy due to anemia, gi bleeding PROCEDURE PERFORMED: Colonoscopy with polypectomy MEDICATIONS: None and Per Anesthesia. PREP QUALITY: 20 % obscured PREP TYPE:GoLytely PREP TYPE:Other: PREP TYPE:Other: magnesium , citrate, tap water enema ESTIMATED BLOOD LOSS: None CONSENT: The patient understands the risks and benefits of the procedure and understands that these risks include, but are not limited to: sedation, allergic reaction, infection, perforation and/or bleeding. Alternative means of evaluation and treatment include, among others: physical exam, x-rays, and/or surgical intervention. The patient elects to proceed with this endoscopic procedure. medical equipment was checked for proper function. Hand hygiene and appropriate measures for infection prevention was taken. After the risks, benefits and alternatives of the procedure were thoroughly explained, Informed consent was verified, confirmed and timeout was successfully executed by the treatment team. A digital exam revealed external hemorrhoids The Pentax [id number] endoscope was introduced through the anus and advanced to the cecum, which was identified by both the appendix and ileocecal valve. The instrument was then slowly withdrawn as the colon was fully examined. COLON FINDINGS: Diverticulosis sigmoid, descending polyp sessile in [id number]-yma 5 mm, one 7 mm-hot snare polypectomy polyps in ascending 5 mm each-cold snare polypectomy with comlete removal very tortous colon ulcer rectum-was biopsied yesterday. Retroflexed views revealed medium internal hemorrhoids The scope was then completely withdrawn from the patient and the procedure terminated. PROCEDURE WITHDRAWAL TIME:15minutes ADVERSE EVENTS: There were no complications. IMPRESSIONS: 1. Diverticulosis sigmoid, descending polyp sessile in [id number] 5 mm, one 7 mm-hot snare polypectomy polyps in ascending 5 mm each-cold snare polypectomy with comlete removal very tortous colon ulcer rectum-was biopsied yesterday 2. Retroflexed views revealed medium internal hemorrhoids 3. Revealed external hemorrhoids RECOMMENDATIONS: 1. Await biopsy results. Biopsy results will not be ready for 7-10 days. If you don't hear from us in two weeks, call our office for results. 2. Benefiber 2 tsp daily 3. High fiber diet 4. Avoid NSAIDS and Aspirin 5. Probiotics from any [facility] or health food store 6. Yearly rectal exams RECALL: Colonoscopy, pending biopsy results Melissa Sinha MD eSigned: Melissa Sinha MD 06/25/2016 3:31 PM cc: PATIENT NAME: Brooklynn Casas MR#: [id number]
[2016-06-25] MEDS: PRAVASTATIN SOD 40 MG TAB PO SCH (23:00)
[2016-06-26] VITALS (8 sets, daily range): BP systolic 100–158; BP diastolic 59–94; PULSE 71–87; RESP 16–20; TEMP 97.1–97.9; O2SAT 90–98
[2016-06-26] MEDS: PIPERACIL-TAZO 3.375 GM PREMIX 50 ML IV SCH ×3 (02:26→18:09)
--- NOTE | 2016-06-26 09:57 | HHI.PR ---
Subjective Remarks pt says she it totally wiped out and exhausted from the bowel preps. she reports inability to participate with rehab today. Objective Vitals heart reg lung few course bs abd ecchymosi over lower abdomen and left flank. palpable hematoma over left lower abdomen Vital Signs Date Time Temp Pulse Resp B/P Pulse Ox O2 Delivery O2 Flow Rate FiO2 06/26/16 07:50 97.6 75 20 132/84 93 06/26/16 04:00 97.1 71 16 131/71 95 06/26/16 02:16 97 Nasal Cannula 2.50 06/26/16 00:00 97.9 80 16 100/59 96 06/25/16 20:00 97.9 83 16 92/51 97 06/25/16 16:00 97.7 76 18 128/83 97 06/25/16 15:46 77 16 142/78 92 06/25/16 15:38 76 18 111/58 94 06/25/16 15:28 97.8 74 16 111/72 93 06/25/16 14:30 98.2 77 20 155/80 97 06/25/16 12:46 97.7 82 16 120/75 97 06/25/16 06/25/16 06/26/16 15:00 23:00 07:00 Intake Total 700 ml 250 ml 65 ml Output Total 200 ml Balance 500 ml 250 ml 65 ml Intake Oral 700 ml IV Total 125 ml 65 ml Other 125 ml Output Urine Total 200 ml # Voids 1 # Bowel Movements 3 Result Diagram: 06/24/16 0615 06/25/16 0613 Imaging Last Impressions Chest X-Ray 06/20/16 0600 Signed Impressions: Service Date/Time: June 06:54 - CONCLUSION: Increasing consolidative changes in the left base. Fawad Gray MD FACR Abdomen/Pelvis CT 06/18/16 0000 Signed Impressions: Service Date/Time: Saturday, June 18, 2016 00:43 - CONCLUSION: 1. 8 x 5 cm left-sided rectus sheath hematoma. 2. Punctate calcific densities in the kidneys likely representing vascular calcifications. 3. Colonic diverticulosis but no evidence of acute diverticulitis. Jesse Hoff MD A/P Problem List: (1) Anemia Status: Acute Plan: acute blood loss anemia. related to acute left rectus abdomen muscle hematoma also pt with gib. She was on anticoagulation for afib. s/p 2 units PRBCs Pt had a CT abd/pelvis which revealed an 8 x 5cm left sided rectus sheath hematoma. egd 06/24..esophagitis/gastritis. colonoscopy results noted...no active bleeding. - Supportive care - PT ...recheck bmp today to assure stable after prep will d/c to snf off anticoagulation (2) Abdominal wall hematoma Status: Acute Plan: - See above. (3) COPD (chronic obstructive pulmonary disease) Status: Acute Plan: - Pt recently admitted with a COPD exacerbation/bronchitis. - She was treated with Solumedrol, Duonebs and antibiotics. - Pt ws discharged to rehab on a taper of prednisone, duonebs and Levaquin x 2 days. - Pt was noted to have leukocytosis at admission, this may be related to the steroids. - CXR at admission noted a possible small infiltrate at the right costophrenic angle but pt feels that she has been symptomatically improving since her last hospitalization. She was feeling somewhat more SOB prior to this admission which was likely due to her anemia. This has improved with her blood transfusion. - Cont. Duonebs Q6H WA - oxygen - cont abx - cont pred. taper - IS - Acapella (4) Thrush Status: Acute Plan: - Nystatin swish and swallow (5) Paroxysmal atrial fibrillation with rapid ventricular response Status: Resolved Plan: - Pt had previous paroxysmal atrial fibrillation with RVR during her last admission but converted to NSR with Amio and Cardizem - She was continued on Amiodarone and Cardizem at discharge. - We will resume her Amiodarone at this time. - Her BP has been somewhat low so we will hold the Cardizem. Add back as the BP allows. - Telemetry - Hold Xarelto (6) HTN (hypertension) Status: Chronic Plan: - BP running low/normal - Cardizem has been on hold - Monitor (7) Hyperlipidemia Status: Chronic Plan: - Cont. home meds (8) Tobacco use Status: Chronic Plan: - Tobacco cessation - Pt declines Nicotine patch (9) Alcohol use Status: Chronic Plan: - No alcohol since previous admission earlier this month. Problem Qualifiers (1) Anemia: Qualified Code: D62 - Acute posthemorrhagic anemia (2) Abdominal wall hematoma: Qualified Code: S30.1XXA - Abdominal wall hematoma, initial encounter Ty Combs MD Jun 26, 2016 09:57
[2016-06-26] MEDS ORDERED: PROT40TA PO (10:01)
[2016-06-26] MEDS ORDERED: PRED10 PO (10:01)
[2016-06-26] MEDS ORDERED: FENT50DI T-DERMAL (10:01)
[2016-06-26] MEDS ORDERED: ASPI1TAB69 PO (10:02)
--- NOTE | 2016-06-26 10:06 | HHI.DCPOC ---
Discharge Care Plan Diagnosis: (1) Anemia (2) GI bleed (3) Abdominal wall hematoma (4) Paroxysmal atrial fibrillation with rapid ventricular response (5) Thrush (6) COPD exacerbation (7) CHF (congestive heart failure) (8) Alcohol use (9) Tobacco use Goals to Promote Your Health * To prevent worsening of your condition and complications * To maintain your health at the optimal level Directions to Meet Your Goals Take your medications as prescribed Follow your dietary instruction Follow activity as directed Keep your appointments as scheduled Take your immunizations and boosters as scheduled If your symptoms worsen call your PCP, if no PCP go to Urgent Care Center or Emergency Room Smoking is Dangerous to Your Health. Avoid second hand smoke Call the 24-hour hour crisis hotline for domestic abuse at Ty Combs MD Jun 26, 2016 10:06
[2016-06-26] MEDS: UMECLIDINIUM 62.5 MCG/VILANTEROL 25 MCG INHALER INH SCH (10:37)
[2016-06-26] MEDS: CETIRIZINE HCL 10 MG TAB PO SCH (10:39)
[2016-06-26] MEDS: AMIODARONE 200 MG TAB PO SCH (10:39)
[2016-06-26] MEDS: MEGESTROL ACETATE 40 MG TAB PO SCH ×2 (10:39→20:37)
[2016-06-26] MEDS: PANTOPRAZOLE SOD 20 MG DELAYED RELEASE TAB PO SCH (10:39)
[2016-06-26] MEDS: NYSTATIN SUSP 500,000 U/5 ML CUP SWISH-SWAL SCH ×4 (10:40→20:38)
[2016-06-26] MEDS: predniSONE 10 MG TAB PO SCH ×2 (10:40→20:37)
[2016-06-26] MEDS: SODIUM CHLORIDE 0.9% FLUSH 5 ML FLUSH IVF SCH ×2 (10:40→20:38)
[2016-06-26 12:45] LABS: BICARBONATE 34.1 MEQ/L (21.0-32.0)
[2016-06-26 12:48] LABS: POTASSIUM 2.7 MEQ/L (3.5-5.1)
[2016-06-26] MEDS ORDERED: POTASSIUM CHLORIDE 20 MEQ CONTROLLED RELEASE TAB PO ONE (13:00)
[2016-06-26] MEDS ORDERED: NS + KCL 20 MEQ INJ 1,000 ML IV SCH (14:00)
--- NOTE | 2016-06-26 15:45 | HHI.GIFU ---
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 Throat is clear. NECK: Neck is supple, no JVD, no lymphadenopathy. CHEST: Chest is clear to auscultation and percussion. CARDIAC: Regular rate and rhythm with no murmur gallop or rubs. ABDOMEN: Soft, nondistended, nontender; no hepatosplenomegaly; bowel sounds are present in all four quadrants. EXTREMITIES: No clubbing, cyanosis, or edema. SKIN: Normal; no rash; no jaundice. GLASS BULB MACHINE ADJUSTER: No focal deficits; alert and oriented times three. Available Data (labs, X- Rays, Procedues) : Vital Signs Date Time Temp Pulse Resp B/P Pulse Ox O2 Delivery O2 Flow Rate FiO2 06/26/16 13:48 98 21 06/26/16 11:50 97.5 87 20 122/74 90 Automatic Cuff 06/26/16 07:50 97.6 75 20 132/84 93 ASSESSMENT/PLAN: gi bleeding -no indication of active gi bleeding herpes esophagitis/Mccord -we will increase pantoprazole 40 mg ppo daily and start Acyclovir egd in 8-12 weeks rectal ulcer most likely secondary fecal impaction-Canasa supp intraabdominal hematoma -hb stable Recommendations fu pathology of colonic polyps ok to dc home from gi point egd/flexi in 8-12 weeks ppi gi will sign off It was a pleasure seeing Brooklynn Casas Thank you for this consult. Entered by: Melissa Alba MD Jun 26, 2016 15:45
[2016-06-26] MEDS: PRAVASTATIN SOD 40 MG TAB PO SCH (20:37)
[2016-06-26] MEDS: ACYCLOVIR 200 MG CAP PO SCH (20:38)
[2016-06-26] MEDS ORDERED: MESALAMINE 1000 MG SUPP RECTAL SCH (21:00)
[2016-06-26] MEDS ORDERED: POTASSIUM CHLORIDE 20 MEQ CONTROLLED RELEASE TAB PO SCH (21:00)
[2016-06-27] VITALS: BP 159/90; PULSE 81; RESP 18; TEMP 97.8; O2SAT 94
[2016-06-27] MEDS: PIPERACIL-TAZO 3.375 GM PREMIX 50 ML IV SCH ×2 (02:43→10:32)
[2016-06-27 04:00] VITALS: BP 124/87; PULSE 79; RESP 16; TEMP 97.2; O2SAT 97
[2016-06-27] MEDS: ACYCLOVIR 200 MG CAP PO SCH ×2 (06:04→13:52)
[2016-06-27 07:50] VITALS: BP 130/74; PULSE 72; RESP 20; TEMP 97.3; O2SAT 97
[2016-06-27 08:11] LABS: BICARBONATE 30.2 MEQ/L (21.0-32.0); POTASSIUM 3.3 MEQ/L (3.5-5.1)
[2016-06-27] MEDS ORDERED: PANTOPRAZOLE SOD 40 MG DELAYED RELEASE TAB PO SCH (09:00)
[2016-06-27] MEDS ORDERED: POTASSIUM CHLORIDE 20 MEQ CONTROLLED RELEASE TAB PO ONE ×2 (09:00→12:00)
[2016-06-27] MEDS: REMOVE OLD DURAGESIC (FENTANYL) PATCH TD SCH (09:00)
[2016-06-27] MEDS: SODIUM CHLORIDE 0.9% FLUSH 5 ML FLUSH IVF SCH (09:00)
[2016-06-27] MEDS ORDERED: CANA10002 RECTAL (09:25)
[2016-06-27] MEDS ORDERED: ACYC200C66 PO (09:25)
--- NOTE | 2016-06-27 09:34 | HHI.DS ---
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 Casas is a pleasant 76 y/o WF with COPD, HTN, atrial fibrillation, hyperlipidemia, tobacco use and regular alcohol use. She was [place] [facility] [place]16 after an admission for COPD exacerbation, CHF and atrial fibrillation. She was treated for her COPD exacerbation with antibiotics and steroids. During that admission she developed atrial fibrillation with RVR and was treated with Cardizem and Amiodarone with return to sinus rhythm. Pt was seen by Cardiology and was recommended anticoagulation on d/c due to high [id number] score and she was started on Xarelto. Pt was brought back to the ED at [facility] on 06/17/16 for anemia. She complained of left lower quadrant abdominal pain, worse with movement and palpation and some shortness of breath. She denies any noted melena or hematochezia. Her labs at admission noted Hgb 6.5/ Hct 19.0. Prior to his previous discharge her last labs on 06/10/16 noted Hgb 11.4. Pt was transfused with 2 units PRBCs and repeat labs this morning noted an improvement with a Hgb 9.9/Hct 28.6. Pt had a CT abd/pelvis which revealed an 8 x 5cm left sided rectus sheath hematoma. Her renal function is increased with Cr 2.05/BUN 71, GFR 24. Prior labs on 06/11/16 noted Cr 1.01/BUN 28, GFR 53. CBC/BMP: 06/24/16 0615 06/27/16 0725 Significant Findings Laboratory Tests Test 06/25/16 06/26/16 06/27/16 06:13 11:27 07:25 Estimat Glomerular Filtration 60 ML/MIN (>89) 52 ML/MIN (>89) 53 ML/MIN (>89) Rate Calcium Level 7.8 MG/DL 7.6 MG/DL 8.0 MG/DL (8.5-10.1) (8.5-10.1) (8.5-10.1) Potassium Level 2.7 MEQ/L 3.3 MEQ/L (3.5-5.1) (3.5-5.1) Chloride Level 96 MEQ/L (98-107) Carbon Dioxide Level 34.1 MEQ/L (21.0-32.0) Blood Urea Nitrogen 19 MG/DL (7-18) Creatinine 1.03 MG/DL 1.02 MG/DL (0.50-1.00) (0.50-1.00) Random Glucose 126 MG/DL 142 MG/DL (74-106) (74-106) Hospital Course - Pt recently admitted with a COPD exacerbation/bronchitis, afib/rvr. - She was treated with Solumedrol, Duonebs and antibiotics. - Pt was discharged to rehab on a taper of prednisone, duonebs and Levaquin x 2 days. she is still on prednisone taper. -She was placed on xarelto for cva prophylaxis. -She was sob/weak. Pt noted to have left rectus abdomen muscle hematoma and left flank ecchymosis..?fall. -She was anemic and give 2 units of blood. xarelto will be stopped and asa started next week. -Pt had a CT abd/pelvis which revealed an 8 x 5cm left sided rectus sheath hematoma. -She also has some blood in stool. egd 06/24..esophagitis/gastritis. path shows viral esophagitis and GI wants acyclovir for now. also the colonoscopy showed rectal ulcer. canasa supp. started by GI. She needs f/u egd/flex sig in 6-8 weeks. -She had some dehydration and electrolyte depletion from the colon prep...kept extra day for replacement. - Pt Condition on Discharge: Stable Discharge Disposition: Discharge to SNF Discharge Instructions DIET: Follow Instructions for: Heart Healthy Diet Activities you can perform: Regular-No Restrictions Follow up Referrals: Gastroenterology - [address] armando PCP Follow-up - [address] matt mccann New Medications: Aspirin (Aspirin) 81 Mg Tabdr 81 MG PO DAILY start on 07/01 afib #0 TAB Pantoprazole (Protonix) 40 Mg Tab 40 MG PO DAILY gastritis #30 Ref 6 TAB Prednisone (Prednisone) 10 Mg Tab 10 MG PO DIRECTED 20mg po bid x 3 days, 10mg po bid x 3 days, then 10mg po daily x 4 days copd Days 10 Ref 0 TAB Acyclovir (Acyclovir) 200 Mg Cap 400 MG PO Q8HR esophagitis Days 7 CAP Mesalamine Supp (Canasa Supp) 1,000 Mg Supp 1000 MG RECTAL HS rectal ulcer Days 14 SUPP Continued Medications: Amiodarone (Amiodarone) 200 Mg Tab 200 MG PO DAILY afib #30 Ref 3 TAB Cetirizine (Zyrtec Allergy) 10 Mg Cap 10 MG PO DAILY Allergies Ref 0 CAP Fentanyl Patch 72 HR (Fentanyl Patch 72 HR) 50 Mcg/Hr Patch 50 MCG T-DERMAL Q72H Remove old patch when new one placed. Pain Management #5 Ref 0 PATCH (This prescription has been renewed) Guaifenesin ER 12 HR (Mucinex ER 12 HR) 600 Mg Xavier 600 MG PO BID Chest Congestion/Cough Days 7 Ref 0 TAB Ipratropium-Albuterol Neb (Duoneb) 0.5-2.5 Mg/3 Ml Neb 1 AMPULE NEB Q6HR WHILE AWAKE NEB copd Days 30 ML Lovastatin (Lovastatin) 40 Mg Tab 40 MG PO DAILY Cholesterol Management #30 Ref 0 TAB Megestrol (Megestrol) 40 Mg Tab 40 MG PO Q12HR appetite Days 14 TAB Umeclidinium-Vilanterol Inh (Anoro Ellipta Inh) 62.5-25 Mcg/Act Aero 1 PUFF INH DAILY COPD #1 Ref 0 INHALER Discontinued Medications: Diltiazem CD 24 HR (Cardizem CD 24 HR) 120 Mg Caper 120 MG PO DAILY afib #30 Ref 3 CAP Levofloxacin (Levaquin) 500 Mg Tab 500 MG PO DAILY bronchitis Days 2 TAB Omeprazole (Omeprazole) 20 Mg Tab 20 MG PO DAILY #30 Ref 0 TAB Prednisone (Prednisone) 20 Mg Tab 20 MG PO DIRECTED 20mg po bid x 3 days, 10mg po bid x 3 days, 10mg po daily x 4 days copd Days 10 TAB Rivaroxaban (Xarelto) 20 Mg Tab 20 MG PO DAILY afib #30 Ref 3 TAB Ty Combs MD Jun 27, 2016 09:34
[2016-06-27] MEDS: AMIODARONE 200 MG TAB PO SCH (10:34)
[2016-06-27] MEDS: MEGESTROL ACETATE 40 MG TAB PO SCH (10:34)
[2016-06-27] MEDS: NYSTATIN SUSP 500,000 U/5 ML CUP SWISH-SWAL SCH ×2 (10:34→13:52)
[2016-06-27] MEDS: fentaNYL 50 MCG/HR PATCH T-DERMAL SCH (10:34)
[2016-06-27] MEDS: predniSONE 10 MG TAB PO SCH (10:35)
[2016-06-27] MEDS: UMECLIDINIUM 62.5 MCG/VILANTEROL 25 MCG INHALER INH SCH (10:35)
[2016-06-27] MEDS: CETIRIZINE HCL 10 MG TAB PO SCH (10:35)
[2016-06-27 11:31] VITALS: O2SAT 97
[2016-06-27 11:50] VITALS: BP 139/85; PULSE 94; RESP 20; TEMP 97.5; O2SAT 96
== END 2016-06-27 16:51 | DRG 378 ==
LOC: NEPA 22:06 → NEDA 06-18 01:39 → HIMN 06-18 02:35 → HOCB 06-19 21:46
PROVIDERS: ADMIT Hospitalist; ATTEND Hospitalist
PROC: 30233N1 Transfusion of Nonautologous Red Blood Cells into Peripheral Vein, Percutaneous Approach (ICD-10-PCS; 2016-06-18)
PROC: 0DB68ZX Excision of Stomach, Via Natural or Artificial Opening Endoscopic, Diagnostic (ICD-10-PCS; 2016-06-24)
PROC: 0DB38ZX Excision of Lower Esophagus, Via Natural or Artificial Opening Endoscopic, Diagnostic (ICD-10-PCS; 2016-06-24)
PROC: 0DBP8ZX Excision of Rectum, Via Natural or Artificial Opening Endoscopic, Diagnostic (ICD-10-PCS; principal; 2016-06-24 09:55)
PROC: 0DB98ZX Excision of Duodenum, Via Natural or Artificial Opening Endoscopic, Diagnostic (ICD-10-PCS; 2016-06-24 09:55)
PROC: 0DBK8ZX Excision of Ascending Colon, Via Natural or Artificial Opening Endoscopic, Diagnostic (ICD-10-PCS; 2016-06-25)
PROC: 0DBH8ZX Excision of Cecum, Via Natural or Artificial Opening Endoscopic, Diagnostic (ICD-10-PCS; 2016-06-25)
DX: K92.2 Gastrointestinal hemorrhage, unspecified (principal); B37.0 Candidal stomatitis; I50.9 Heart failure, unspecified; B00.89 Other herpesviral infection; K62.6 Ulcer of anus and rectum; I48.0 Paroxysmal atrial fibrillation; E86.0 Dehydration; J44.9 Chronic obstructive pulmonary disease, unspecified; I10 Essential (primary) hypertension; D62 Acute posthemorrhagic anemia; K20.8 Other esophagitis; S30.1XXA Contusion of abdominal wall, initial encounter; K22.70 Barrett's esophagus without dysplasia; D12.0 Benign neoplasm of cecum; F17.210 Nicotine dependence, cigarettes, uncomplicated; K64.4 Residual hemorrhoidal skin tags; K64.8 Other hemorrhoids; K29.80 Duodenitis without bleeding; K44.9 Diaphragmatic hernia without obstruction or gangrene; K57.30 Diverticulosis of large intestine without perforation or abscess without bleeding; D12.2 Benign neoplasm of ascending colon; K56.41 Fecal impaction; K29.70 Gastritis, unspecified, without bleeding; E78.5 Hyperlipidemia, unspecified; D72.829 Elevated white blood cell count, unspecified; I73.9 Peripheral vascular disease, unspecified; W19.XXXA Unspecified fall, initial encounter; Z85.42 Personal history of malignant neoplasm of other parts of uterus; Z85.3 Personal history of malignant neoplasm of breast; Z79.01 Long term (current) use of anticoagulants; Z88.5 Allergy status to narcotic agent; Z88.8 Allergy status to other drugs, medicaments and biological substances
CPT/HCPCS: 36430; 71010; 71020; 74176; 80048; 80053; 81001; 82272; 82550; 82552; 83735; 83880; 84132; 84484; 85007; 85014; 85018; 85025; 85027; 85610; 85730; 86850; 86900; 86901; 86920; 87040; 87205; 87207; 87328; 87329; 87493; 87506; 87641; 88305; 88312; 93005; 94150; 94640; 94664; 94667; 94668; 96365; 96375; J2370; J2543; J2930; J3370; J3480; J7050; J7512; J7608; P9016

== ENCOUNTER 2016-07-11 12:12 | Emergency (ER) | payer MEDICARE, OTHER ==
[~2016-07-11] VITALS: Ht 162.6 cm; Wt 38.6 kg
[~2016-07-11 12:12] MED LIST changes: +ACYC200C66 PO; +ASPI1TAB69 PO; +CANA10002 RECTAL; -CARD120C4 PO; -LEVA500T PO; -OMEP20TA PO; +PRED10 PO; -PRED20 PO; +PROT40TA PO; -XARE20TA PO
[2016-07-11] MEDS ORDERED: SODIUM CHLOR 0.9% 1000 ML INJ 1,000 ML IV SCH ×2 (12:20→13:37)
[2016-07-11 12:26] VITALS: BP 124/74; PULSE 76; RESP 16; TEMP 97.6; O2SAT 98
[2016-07-11 12:44] VITALS: O2SAT 98
[2016-07-11] MEDS ORDERED: FERR325T PO (12:53)
[2016-07-11] MEDS ORDERED: CALC500T42 PO (12:53)
[2016-07-11] MEDS ORDERED: TYLE325T PO (12:53)
[2016-07-11] MEDS ORDERED: MAGN400T2 PO (12:54)
--- NOTE | 2016-07-11 12:58 | PD ---
HPI Chief Complaint: GI Complaint Time Seen by Provider: 12:52 Travel History International Travel<30 days: No Contact w/Intl Traveler<30days: No Traveled to known affect area: No History of Present Illness HPI 76-year-old female that presents to the ED for evaluation of constipation. Per patient and report from custodial patient has been constipated for the past week and a half. Patient was just released from the hospital at the end of June for evaluation of GI bleed. At the time patient was found to have herpetic esophagitis as well as Mccord's esophagus and she required some transfusion for blood. Patient was discharged home after having colonoscopy and EGD with no sign of bleeding. Patient denies any other symptom other than constipation. Per patient she has a lot of pain in her lower abdomen. Per patient she feels like she has to go but she has not been able to go. She has an allergy to lisinopril and morphine. She states that the been giving her a lot of medications at the custodial with minimal relief. She has not had a full bowel movement. Denies any other medical problem. No chest pain or shortness of breath. No fevers chills or sweats. Pain per patient is 7 out of 10. PFSH Past Medical History Arthritis: Yes Autoimmune Disease: No Anxiety: Yes Depression: Yes Heart Rhythm Problems: No Cancer: Yes (BREAST) Cardiovascular Problems: Yes High Cholesterol: Yes Chemotherapy: Yes (RIGHT BREAST CA/MASTECTOMY) Chest Pain: No Congestive Heart Failure: No COPD: Yes Diabetes: No Diminished Hearing: No GERD: No Glaucoma: No Hepatitis: Yes Hiatal Hernia: No Hypertension: Yes Immune Disorder: No Kidney Stones: No Musculoskeletal: Yes (; OSTEOPOROSIS; SCOLIOSIS.) Neurologic: No Psychiatric: Yes Respiratory: Yes (COPD/LEFT LOBECTOMY) Immunizations Current: No Migraines: No Radiation Therapy: No Renal Failure: No Seizures: No Sleep Apnea: No Thyroid Disease: No Ulcer: Yes Tetanus Vaccination: < 5 Years Influenza Vaccination: Yes ?: Not Past Surgical History Abdominal Surgery: Yes (APPY, SPLEENECTOMY) Appendectomy: Yes Cardiac Surgery: No Gynecologic Surgery: Yes (HYSTERECTOMY) Hysterectomy: Yes Oral Surgery: Yes (TONSILLECTOMY) Pacemaker: No Thoracic Surgery: Yes (LUMPECTOMY RT BREAST; MASTECTOMY RT BREAST) Tonsillectomy: Yes Other Surgery: Yes Social History Alcohol Use: No Tobacco Use: No Substance Use: No Allergies-Medications (Allergen,Severity, Reaction): Coded Allergies: Morphine (Verified Allergy, Severe, THRASHING, 07/11/16) Lisinopril (Verified Allergy, Intermediate, VOMITING, 07/11/16) Reported Meds & Prescriptions Reported Meds & Active Scripts Active Anusol-Hc Rectal (Hydrocortisone Rectal) 2.5% Cream 1 Applic RECTAL Q6H PRN Miralax Powder (Polyethylene Glycol 3350 Powder) 17 Gm Powd 17 Gm PO DAILY Mix and dissolve one measuring cap-ful (17 grams) in water or juice. Canasa Supp (Mesalamine) 1,000 Mg Supp 1,000 Mg RECTAL HS 14 Days Aspirin 81 Mg Tabdr 81 Mg PO DAILY start on 07/01 Protonix (Pantoprazole Sodium) 40 Mg Tab 40 Mg PO DAILY Fentanyl Patch 72 HR (Fentanyl) 50 Mcg/Hr Patch 50 Mcg T-DERMAL Q72H Remove old patch when new one placed. Megestrol (Megestrol Acetate) 40 Mg Tab 40 Mg PO Q12HR 14 Days Duoneb (Ipratropium-Albuterol Neb) 0.5-2.5 Mg/3 Ml Neb 1 Ampule NEB Q6HR WHILE AWAKE NEB 30 Days Amiodarone (Amiodarone HCl) 200 Mg Tab 200 Mg PO DAILY Reported Magnesium Oxide 400 Mg Tab 400 Mg PO DAILY Calcium 500 Mg Tab 500 Mg PO BID Tylenol (Acetaminophen) 325 Mg Tab 650 Mg PO Q6H PRN Ferrous Sulfate 325 Mg Tab 325 Mg PO DAILY Lovastatin 40 Mg Tab 40 Mg PO HS Anoro Ellipta Inh (Umeclidinium/Vilanterol) 62.5-25 Mcg/Act Aero 1 Puff INH DAILY Zyrtec Allergy (Cetirizine HCl) 10 Mg Cap 10 Mg PO DAILY Review of Systems General / Constitutional: No: Fever, Chills, Weight Gain, Weight Loss, Other Eyes: No: Diploplia, Blurred Vision, Photophobia, Drainage, Redness, Foreign Body Sensation, Pain, Tearing, Blind Spots, Visual changes, Blindness, Other HENT: No: Headaches, Vertigo, Lightheadedness, Sore Throat, Rhinitis, Rhinorrhea, Congestion, Nosebleed, Neck Stiffness, Neck Pain, Masses, Gingival Bleeding, Dental Difficulties, Ear Discharge, Earache, Other Cardiovascular: No: Chest Pain or Discomfort, Palpitations, Irregular Rhythm, Tachycardia, Diaphoresis, Syncope, Dyspnea on exertion, Varicosities, Edema, Cyanosis, Varicosities, Phlebitis, Claudication, Other Respiratory: No: Cough, Shortness of Breath, Wheezing, Sneezing, Orthopnea, Hemoptysis, Stridor, Night Sweats, Pleuritic Pain, Other Gastrointestinal: Positive: Abdominal Pain, Constipation, No: Nausea, Vomiting , Diarrhea, Hematemesis, Hematochezia, Changes in Bowel Habits, Indigestion, Dysphagia, Loss of Appetite, Other Genitourinary: No: Urgency, Frequency, Dysuria, Nocturia, Hematuria, Decreased Urinary Output, Oliguria, Hesitancy, Dribbling, Incontinence, Pelvic Pain, Flank Pain, Dyspareunia, Discharge, Dysmenorrhea, Menorrhagia, Metorrhagia, Vaginal Bleeding, Other Musculoskeletal: No: Myalgias, Arthralgias, Limited ROM, Weakness, Cramping, Edema, Pain, Atrophy, Other Skin: No Rash, No Itching, No Dryness, No Lumps, No Hives, No Change in Pigmentation, No Change in nails, No Alopecia, No Lesions, No Breast Lumps, No Breast Tenderness, No Breast Swelling, No Other Neurologic: No: Weakness, Dizziness, Syncope, Focal Abnormalities, Coordination Problem, Tremor, Ataxia, Headache, Change in Mentation, Slurred Speech, Paresthesia, Incontinence, Seizures, Sensory Disturbance, Other Psychiatric: No: Anxiety, Depression, Suicidal Ideations, Disorder of Thought, Mood Disorder, Substance Abuse, Homicidal Ideation, Other Endocrine: No: Heat Intolerance, Cold Intolerance, Polyuria, Polydipsia, Other Hematologic/Lymphatic: No: Easy Bruising, Lymph Node Enlargement, Other Physical Exam Narrative GENERAL: SKIN: Warm and dry. HEAD: Atraumatic. Normocephalic. EYES: Pupils equal and round. No scleral icterus. No injection or drainage. ENT: No nasal bleeding or discharge. Mucous membranes pink and moist. Tongue is midline. No uvula deviation. NECK: Trachea midline. No JVD. CARDIOVASCULAR: Regular rate and rhythm. No murmurs, S3, S4. RESPIRATORY: No accessory muscle use. Clear to auscultation. Breath sounds equal bilaterally. GASTROINTESTINAL: Abdomen soft, non-tender, nondistended. Hepatic and splenic margins not palpable. Rectal exam: Done with female nurse present. Patient has impacted stool noted on the rectum. Significant. Digital exam reveals significant impaction which was removed by me using digital dessimpaction technique. MUSCULOSKELETAL: Extremities without clubbing, cyanosis, or edema. No obvious deformities. Full range of motion of the upper and lower extremities bilaterally. 2+ pulses bilaterally. NEUROLOGICAL: Awake and alert. No obvious cranial nerve deficits. Motor grossly within normal limits. Five out of 5 muscle strength in the arms and legs. Normal speech. PSYCHIATRIC: Appropriate mood and affect; insight and judgment normal. Data Data Last Documented VS Vital Signs Date Time Temp Pulse Resp B/P Pulse Ox O2 Delivery O2 Flow Rate FiO2 07/11/16 14:43 74 16 133/71 100 Nasal Cannula 2 07/11/16 12:26 97.6 Orders Complete Blood Count With Diff (07/11/16 12:20) Comprehensive Metabolic Panel (07/11/16 12:20) Lipase (07/11/16 12:20) Lactic Acid (07/11/16 12:20) Prothrombin Time / Inr (Pt) (07/11/16 12:20) Act Partial Throm Time (Ptt) (07/11/16 12:20) Urinalysis - C+S If Indicated (07/11/16 12:20) Iv Access Insert/Monitor (07/11/16 12:20) Ecg Monitoring (07/11/16 12:20) Oximetry (07/11/16 12:20) NPO (07/11/16 12:20) Sodium Chlor 0.9% 1000 Ml Inj (Ns 1000 M (07/11/16 12:20) Abdomen, Flat & Upright (07/11/16 ) Ct Abd/Pel W Iv Contrast(Rout) (07/11/16 ) Sodium Chlor 0.9% 1000 Ml Inj (Ns 1000 M (07/11/16 13:37) Iodixanol 320 Inj (Rad Ct) (Visipaque 32 (07/11/16 14:22) Lactic Acid (07/11/16 15:11) Labs Laboratory Tests Test 07/11/16 07/11/16 12:40 14:00 White Blood Count 9.5 TH/MM3 Red Blood Count 3.01 MIL/MM3 Hemoglobin 10.2 GM/DL Hematocrit 30.0 % Mean Corpuscular Volume 99.5 FL Mean Corpuscular Hemoglobin 33.7 PG Mean Corpuscular Hemoglobin 33.9 % Concent Red Cell Distribution Width 20.1 % Platelet Count 254 TH/MM3 Mean Platelet Volume 8.1 FL Neutrophils (%) (Auto) 87.1 % Lymphocytes (%) (Auto) 5.3 % Monocytes (%) (Auto) 7.1 % Eosinophils (%) (Auto) 0.2 % Basophils (%) (Auto) 0.3 % Neutrophils # (Auto) 8.3 TH/MM3 Lymphocytes # (Auto) 0.5 TH/MM3 Monocytes # (Auto) 0.7 TH/MM3 Eosinophils # (Auto) 0.0 TH/MM3 Basophils # (Auto) 0.0 TH/MM3 CBC Comment DIFF FINAL Differential Comment Prothrombin Time 10.3 SEC Prothromb Time International 0.9 RATIO Ratio Activated Partial 24.5 SEC Thromboplast Time Sodium Level 142 MEQ/L Potassium Level 3.5 MEQ/L Chloride Level 107 MEQ/L Carbon Dioxide Level 25.3 MEQ/L Anion Gap 10 MEQ/L Blood Urea Nitrogen 16 MG/DL Creatinine 1.13 MG/DL Estimat Glomerular Filtration 47 ML/MIN Rate Random Glucose 70 MG/DL Lactic Acid Level 5.9 mmol/L Calcium Level 8.5 MG/DL Total Bilirubin 0.6 MG/DL Aspartate Amino Transf 27 U/L (AST/SGOT) Alanine Aminotransferase 47 U/L (ALT/SGPT) Alkaline Phosphatase 88 U/L Total Protein 6.3 GM/DL Albumin 2.8 GM/DL Lipase 213 U/L Urine Color YELLOW Urine Turbidity HAZY Urine pH 7.5 Urine Specific [place] 1.012 Urine Protein 30 mg/dL Urine Glucose (UA) NEG mg/dL Urine Ketones NEG mg/dL Urine Occult Blood SMALL Urine Nitrite NEG Urine Bilirubin NEG Urine Urobilinogen LESS THAN 2.0 MG/DL Urine Leukocyte Esterase NEG Urine RBC 19 /hpf Urine WBC 1 /hpf Urine Squamous Epithelial <1 /hpf Cells Urine Bacteria RARE /hpf Urine Hyaline Casts 1 /lpf Microscopic Urinalysis Comment CULT NOT INDICATED MDM Medical Decision Making Medical Screen Exam Complete: Yes Emergency Medical Condition: Yes Medical Record Reviewed: Yes Interpretation(s) CBC & BMP Diagram 07/11/16 12:40 LFTs WNL Lipase WNL lactic acid elevated Last Impressions Abdomen/Pelvis CT 07/11/16 0000 Signed Impressions: Service Date/Time: July 14:04 - CONCLUSION: 1. COPD changes within the lung bases. 2. Stool filled distal colon and rectum suggesting constipation. 3. Atrophic appearing spleen. 4. Advanced degenerative changes throughout the spine. 5. The patient is post hysterectomy. Sabino Gray MD Abdomen X-Ray 07/11/16 0000 Signed Impressions: Service Date/Time: July 13:13 - CONCLUSION: Nonspecific abdominal bowel gas pattern with air-fluid levels in nondistended loops of small bowel and colon. Moderate amount of stool in the rectum. Joao Delarosa MD Differential Diagnosis Impaction versus constipation versus obstruction versus GI bleed Narrative Course 76-year-old female that presents to the ED for evaluation of constipation. Patient was properly examined and was found to have signs and symptoms consistent with severe stool impaction. On my physical examination I was able to see the impaction which appear to be already coming out but she had a lot of difficulty having bowel movements and under to severe pain. After explaining procedure to the patient and she agreed to it using digital dessimpaction a large amount of stool was removed that was harden with minimal discomfort for the patient. Some fissures were noted as well as some bleeding from my manipulation as well as the removal of the stool but other than this no sign of other disease. Patient tolerated thet procedure well. Most of the stool that I could palpate with my finger was removed. Patient had great improvement of symptoms afterwards. At this time because of her history I do recommend some labs and x-ray to make sure there is no other cause of the obstruction. Also patient does have a history of anemia requiring blood transfusion so we will check this as patient did have some blood in her stool but again I believe this is more likely from the obstruction. Labs and imaging were essentially unremarkable other than for constipation. Patient did have an elevated lactic acid was given fluids with good relief. Lactic acid will be rechecked. Lactic acid was improved. CT abdomen done and showed constipation but no sign of obstruction or perforation. At this time I spoke with my attending Dr. Osorio who was made aware of all findings, imaging, labs and recommends discharge back to [facility]. Patient will be sent home with prescriptions for hydrocortisone cream for the rectal pain as well as for MiraLAX to help with the constipation. Patient was told to continue taking OTC meds. Follow with PCP. See ED worsening symptoms. CT did showed hematoma but from review of records it appears to have been present there in may. [facility] Point of Care Internal Pos. & Neg. Controls: Passed Fecal Specimen Occult Blood: Negative Diagnosis Primary Impression: Fecal impaction in rectum Additional Impression: Constipation Qualified Code: K59.03 - Drug-induced constipation Patient Instructions: General Instructions Additional Instructions: Follow with PCP or GI specialist. See ED worsening symptoms. Continue OTC medications to prevent constipation. Med/Other Pt SpecificInfo: Prescription(s) given Scripts Hydrocortisone Rectal (Anusol-Hc Rectal)2.5% Cream1 Applic RECTAL Q6H PRN (PAIN SCALE 1 TO 10) #30 GM Ref 0 Prov:Neymar Osorio MD 07/11/16 Polyethylene Glycol 3350 Powder (Miralax Powder)17 Gm Powd17 Gm PO DAILY #1 BOTTLE Ref 0 Mix and dissolve one measuring cap-ful (17 grams) in water or juice. Prov:Neymar Osorio MD 07/11/16 Disposition: 01 DISCHARGE HOME Condition: Stable Christo Campbell Jul 11, 2016 12:58
[2016-07-11 12:59] LABS: AUTOMATED NEUTROPHIL # 8.3 TH/MM3 (1.8-7.7); BASOPHIL % 0.3 % (0.0-2.0); EOSINOPHIL % 0.2 % (0.0-4.0); HEMO FLAGS DIFF FINAL; LYMPH % 5.3 % (9.0-44.0); LYMPHOCYTE # 0.5 TH/MM3 (1.0-4.8); MEAN CELL VOLUME 99.5 FL (80.0-100.0); MEAN CORPUSCULAR HEMOGLOBIN 33.7 PG (27.0-34.0); MEAN CORPUSCULAR HGB CONC 33.9 % (32.0-36.0); MONO % 7.1 % (0.0-8.0); NEUT % 87.1 % (16.0-70.0); PLATELET COUNT 254 TH/MM3 (150-450); RED BLOOD COUNT 3.01 MIL/MM3 (4.00-5.30); RED CELL DISTRIBUTION WIDTH 20.1 % (11.6-17.2); WHITE BLOOD COUNT 9.5 TH/MM3 (4.0-11.0)
[2016-07-11 13:10] LABS: APTT (PATIENT) 24.5 SEC (24.3-30.1); INTERNATIONAL NORMALIZED RATIO 0.9 RATIO; PROTHROMBIN TIME - PATIENT 10.3 SEC (9.8-11.6)
[2016-07-11 13:17] LABS: ANION GAP 10 MEQ/L (5-15); AST (GOT) 27 U/L (15-37); BICARBONATE 25.3 MEQ/L (21.0-32.0); BLOOD UREA NITROGEN 16 MG/DL (7-18); CHLORIDE 107 MEQ/L (98-107); GLOMERULAR FILTRATION RATE 47 ML/MIN (>89); POTASSIUM 3.5 MEQ/L (3.5-5.1); SODIUM (NA) 142 MEQ/L (136-145)
[2016-07-11 13:20] LABS: ALKALINE PHOSPHATASE 88 U/L (45-117); ALT (GPT) 47 U/L (10-53); TOTAL BILIRUBIN ADULT 0.6 MG/DL (0.2-1.0)
[2016-07-11 13:40] VITALS: BP 169/91; PULSE 73; RESP 20; O2SAT 98
--- NOTE | 2016-07-11 13:56 | RADRPT ---
EXAM DATE/TIME: 07/11/2016 13:13 [facility] COMPARISON: No previous studies available for comparison. INDICATIONS : Constipation x 2 weeks MEDICAL HISTORY : None. SURGICAL HISTORY : Hysterectomy. Appendectomy. Nephrectomy ENCOUNTER: Initial ACUITY: 2 weeks PAIN SCORE: 0/10 LOCATION: Bilateral abdomen FINDINGS: Gas is present throughout mildly prominent loops of small and large bowel. Small bowel loops measure up to 2.3 cm in dimension. On the erect view, there are air fluid levels in both small and large kimberly wel. Moderate vascular calcification in the abdomen. Visualized lower lungs are clear. Minor degen erative changes in the lumbar spine. CONCLUSION: Nonspecific abdominal bowel gas pattern with air-fluid levels in nondistended loops of small bowel an d colon. Moderate amount of stool in the rectum. Joao Delarosa MD on July 11, 2016 at 13:54 Board Certified Radiologist. This report was verified electronically.
[2016-07-11 14:12] LABS: BACTERIA, URINE RARE /hpf; BLOOD, URINE SMALL (NEG); GLUCOSE,URINE NEG (NEG); HYALINE CAST, URINE 1 /lpf (RARE); KETONE, URINE NEG (NEG); NITRITE,URINE NEG (NEG); PH, URINE 7.5 (5.0-8.5); SQUAMOUS EPITHELIAL CELL URINE <1 /hpf (0-5); URINE COLOR YELLOW (YELLW/STRAW)
[2016-07-11 14:13] LABS: COMMENT (UR) CULT NOT INDICATED; CULTURE IF INDICATED CULT NOT INDICATED
[2016-07-11] MEDS ORDERED: IODIXANOL 320 MG/ML 10 ML VIAL (for Rad CT) IV ONE (14:22)
[2016-07-11 14:43] VITALS: BP 133/71; PULSE 74; RESP 16; O2SAT 100
--- NOTE | 2016-07-11 15:03 | RADRPT ---
EXAM DATE/TIME: 07/11/2016 14:04 [facility] COMPARISON: CT ABDOMEN & PELVIS W/O CONTRAST, June 18, 2016, 0:43. INDICATIONS : Constipation, evaluate for obstruction. IV CONTRAST: 42 cc Visipaque (iodixanol) IV ORAL CONTRAST: No oral contrast ingested. RADIATION DOSE: 9.96 CTDIvol (mGy) MEDICAL HISTORY : Hypertension. Carcinoma, breast. SURGICAL HISTORY : Appendectomy. Hysterectomy.Splenectomy.Mastectomy ENCOUNTER: Initial ACUITY: 2 weeks PAIN SCALE: 3/10 LOCATION: Bilateral abdomen TECHNIQUE: Volumetric scanning of the abdomen and pelvis was performed. Using automated exposure control and ad justment of the mA and/or kV according to patient size, radiation dose was kept as low as reasonably achievable to obtain optimal diagnostic quality images. FINDINGS: The limited portion of the lung base visualized demonstrate moderate COPD changes. The appearance of the liver, pancreas, adrenal glands and kidneys is within normal limits. The spleen is somewhat small and atrophic suggesting previous splenectomy. No free air or free fluid is seen. There is no retroperitoneal lymphadenopathy. There are the examina tion demonstrates fluid and gaseous distention of the proximal colon. There is stool diffusely throug hout the sigmoid and rectum suggesting constipation. There is no free fluid within the pelvis. No iliac or inguinal adenopathy is evident. Note is made of a 7.4 x 4.3 cm rectum sheath hematoma on the left. The visualized bony structures demonstrate degenerative changes but are otherwise intact. CONCLUSION: 1. COPD changes within the lung bases. 2. Stool filled distal colon and rectum suggesting constipation. 3. Atrophic appearing spleen. 4. Advanced degenerative changes throughout the spine. 5. The patient is post hysterectomy. Sabino Gray MD on July 11, 2016 at 14:58 Board Certified Radiologist. This report was verified electronically.
[2016-07-11] MEDS ORDERED: HYDR2.5%T RECTAL (15:10)
[2016-07-11] MEDS ORDERED: MIRA33504 PO (15:10)
[2016-07-11 16:34] VITALS: BP 143/72; PULSE 73; RESP 16; O2SAT 100
[2016-07-11 19:52] VITALS: BP 135/63
== END 2016-07-11 19:53 ==
LOC: NEPC 12:12
DX: K56.41 Fecal impaction (principal); I10 Essential (primary) hypertension
CPT/HCPCS: 74020; 74177; 80053; 81001; 83605; 83690; 85025; 85610; 85730; 96360; 96361; 99284; J7030; Q9967

== ENCOUNTER → 2016-09-26 | Day surgery (SDC) | payer MEDICARE, MEDICAID ==
[~2016-09-26] MED LIST changes: -ACYC200C66 PO; +CALC500T42 PO; +FERR325T PO; +HYDR2.5%T RECTAL; +LACTATED RINGER'S 1000 ML INJ 1,000 ML ONE; +MAGN400T2 PO; +MIRA33504 PO; -MUCI600T PO; -PRED10 PO; +PROPOFOL 100 MG/10 ML INJ IV ONE; +TYLE325T PO
--- NOTE | 2016-09-26 10:28 | GIPROC ---
[facility] [address] [place], [address] FLEXIBLE SIGMOIDOSCOPY PROCEDURE REPORT EXAM DATE: 09/26/2016 PATIENT NAME: Brooklynn Casas MR #: [id number] BIRTHDATE: 1940 ORDER #: [id number] ATTENDING: Yulissa Murrieta MD RENTAL MANAGEMENT TRAINEE: STATUS: outpatient INDICATIONS: The patient is a 76 yr old female here for a flexible sigmoidoscopy due to rectal pain and constipation PROCEDURE PERFORMED: Flexible Sigmoidoscopy, diagnostic MEDICATIONS: None and Per Anesthesia. ESTIMATED BLOOD LOSS: None CONSENT: The patient understands the risks and benefits of the procedure and understands that these risks include, but are not limited to: sedation, allergic reaction, infection, perforation and/or bleeding. Alternative means of evaluation and treatment include, among others: physical exam, x-rays, and/or surgical intervention. The patient elects to proceed with this endoscopic procedure. medical equipment was checked for proper function. Hand hygiene and appropriate measures for infection prevention was taken. After the risks, benefits and alternatives of the procedure were thoroughly explained, Informed consent was verified, confirmed and timeout was successfully executed by the treatment team. A digital rectal exam revealed no abnormalities of the rectum The Pentax [id number] endoscope was introduced through the anus and advanced to the sigmoid colon. The prep was fair. The instrument was then slowly withdrawn as the colon was fully examined. COLON FINDINGS: Signifincant hard stool in the sigmoid c/W constipation. There was moderate diverticulosis noted in the sigmoid colon. The colon mucosa was otherwise normal. Retroflexed views revealed internal hemorrhoid The scope was then completely withdrawn from the patient and the procedure terminated. ADVERSE EVENTS: There were no complications. IMPRESSIONS: 1. Signifincant hard stool in the sigmoid c/W constipation 2. Moderate diverticulosis was noted in the sigmoid colon 3. The colon mucosa was otherwise normal 4. Retroflexed views revealed internal hemorrhoid 5. Revealed no abnormalities of the rectum RECOMMENDATIONS: Stool softener to avoid constipation RECALL: NONE Yulissa Murrieta MD eSigned: Yulissa Murrieta MD 09/26/2016 10:27 AM cc:
--- NOTE | 2016-09-26 10:30 | GIPROC ---
[facility] [address] [address] [place], [address] EGD PROCEDURE REPORT EXAM DATE: 09/26/2016 PATIENT NAME: Brooklynn Casas MR #: [id number] BIRTHDATE: 1940 ATTENDING: Yulissa Murrieta MD ORDER #: [id number] WIRE STRETCHER: STATUS: outpatient INDICATIONS: The patient is a 76 yr old female here for an EGD due to vomiting and nausea PROCEDURE PERFORMED: EGD w/ biopsy MEDICATIONS: None and Per Anesthesia. TOPICAL ANESTHETIC: none CONSENT: The patient understands the risks and benefits of the procedure and understands that these risks include, but are not limited to: sedation, allergic reaction, infection, perforation and/or bleeding. Alternative means of evaluation and treatment include, among others: physical exam, x-rays, and/or surgical intervention. The patient elects to proceed with this endoscopic procedure. medical equipment was checked for proper function. Hand hygiene and appropriate measures for infection prevention was taken. After the risks, benefits and alternatives of the procedure were thoroughly explained, Informed consent was verified, confirmed and timeout was successfully executed by the treatment team. The patient was anesthetized with topical anesthesia and the Pentax [id number] endoscope was introduced through the mouth and advanced to the second portion of the duodenum. Retroflexed views revealed no abnormalities The gastroscope was then slowly withdrawn and removed. Gastritis Bx from antrum. ADVERSE EVENTS: There were no complications. IMPRESSIONS: 1. Gastritis Bx from antrum 2. Retroflexed views revealed no abnormalities RECOMMENDATIONS: 1. Await biopsy results. Biopsy results will not be ready for 7-10 days. If you don't hear from us in two weeks, call our office for biopsy results. 2. Anti-reflux regimen 3. Continue PPI PATIENT CONDITION: stable DISPOSITION: Home REPEAT EXAM: Return as needed for EGD Yulissa Murrieta MD eSigned: Yulissa Murrieta MD 09/26/2016 10:30 AM cc:
== END | disposition home or self-care (01) ==
LOC: ESDC 08:52
PROVIDERS: ATTEND Hospitalist
DX: K62.89 Other specified diseases of anus and rectum (principal); K59.00 Constipation, unspecified; K57.90 Diverticulosis of intestine, part unspecified, without perforation or abscess without bleeding; K64.8 Other hemorrhoids; R11.2 Nausea with vomiting, unspecified; K29.70 Gastritis, unspecified, without bleeding
CPT/HCPCS: 00740; 00810; 43239; 45330; 88305; J7120